=== PATIENT | female | born 1965 | race American Indian/Alaskan Native ===

== ENCOUNTER 2016-05-08 09:13 | Emergency (ER) | payer BC ==
[2016-05-08] MEDS ORDERED: Albuterol/Ipratropium 3.0-0.5 MG/3 ML Neb Soln NEB ONE (09:34)
[2016-05-08] MEDS ORDERED: Aspirin 81 MG Tab.Chew PO ONE (09:35)
--- NOTE | 2016-05-08 09:38 | EDM.PDOC ---
ED HISTORY OF PRESENT ILLNESS - General Chief Complaint: Chest Pain Stated Complaint: CHEST PAINS Time Seen by Provider: 05/08/16 09:35 Source of Information: Reports: Patient History Limitations: Reports: No limitations - History of Present Illness INITIAL COMMENTS - FREE TEXT/NARRATIVE: History of present illness: [] Patient has severe asthma and uses Dulera and a rescue inhaler. Patient stepped outside in the cold and had a sudden onset of chest pain when she took a deep breath. Review of systems: As per history of present illness and below otherwise all systems reviewed and negative. Past medical history: As per history of present illness and as reviewed below otherwise noncontributory. Surgical history: As per history of present illness and as reviewed below otherwise noncontributory. Social history: No reported history of drug or alcohol abuse. Family history: As per history of present illness and as reviewed below otherwise noncontributory. Physical exam: General: Well developed, well nourished in NAD HEENT: Atraumatic, normocephalic, pupils reactive, negative for conjunctival pallor or scleral icterus, mucous membranes moist, throat clear, neck supple, nontender, trachea midline. Lungs: Clear to auscultation, breath sounds equal bilaterally, coarse expiratory wheezing. chest nontender. Heart: S1S2, regular, negative for clicks, rubs, or JVD. Abdomen: Soft, nondistended, nontender. Negative for masses or hepatosplenomegaly. Negative for costovertebral tenderness. Pelvis: Stable nontender. Genitourinary: Deferred. Rectal: Deferred. Extremities: Atraumatic, negative for cords or calf pain. Neurovascular unremarkable. Neuro: Awake, alert, oriented. Cranial nerves II through XII unremarkable. Cerebellum unremarkable. Motor and sensory unremarkable throughout. Exam nonfocal. Diagnostics: [] Labs chest x-ray EKG, patient has an elevated white count with no shift. EKG shows no sign of acute ischemia chest x-ray no infiltrates Therapeutics: [] DuoNeb was given with improvement Impression: [] Chest pain unspecified Plan: [] Followup PMD stopped smoking use inhalers needed for shortness of breath and wheezing. return to ER if symptoms worsen Definitive disposition and diagnosis as appropriate pending reevaluation and review of above. - Related Data Allergies/ADRs: Allergies Allergy/AdvReac Type Severity Reaction Status Date / Time acetaminophen Allergy Abdominal Verified 02/27/16 23:10 [From Tylenol-Codeine #3] Pain ciprofloxacin [From Cipro] Allergy Renal Verified 04/29/15 23:10 Failure ciprofloxacin HCl Allergy Renal Verified 04/29/15 23:10 [From Cipro] Failure codeine phosphate Allergy Abdominal Verified 04/29/15 23:10 [From Tylenol-Codeine #3] Pain cyclobenzaprine Allergy Rash Verified 04/29/15 23:10 Sulfa (Sulfonamide Allergy Hives Verified 04/29/15 23:10 Antibiotics) Home Meds: Home Meds Albuterol [Ventolin HFA] 2 puff INH QID PRN 07/22/13 [History] DULoxetine [Cymbalta] 30 mg PO DAILY 07/22/13 [History] metFORMIN [Glucophage XR] 500 mg PO BIDM 07/22/13 [History] Levothyroxine 125 mcg PO ACBREAKFAST 04/29/15 [History] Fluticasone/Salmeterol [Advair Diskus 500-50] 1 puff INH BID 04/30/15 [History] Montelukast [Singulair] 10 mg PO DAILY 05/07/15 [History] Past Medical History HEENT History: Reports: None Cardiovascular History: Reports: None Respiratory History: Reports: Asthma Genitourinary History: Reports: None RESEARCH GEOLOGIST History: Reports: None Other OB/BYN History: Hysterectomy Musculoskeletal History: Reports: None Neurological History: Reports: None Psychiatric History: Reports: None, Anxiety, Depression Endocrine/Metabolic History: Reports: Diabetes, type II Hematologic History: Reports: None Immunologic History: Reports: None Oncologic (Cancer) History: Reports: None Dermatologic History: Reports: None - Infectious Disease History Infectious Disease History: Reports: Chicken pox - Past Surgical History HEENT Surgical History: Reports: None Cardiovascular Surgical History: Reports: None GI Surgical History: Reports: Cholecystectomy, Other (see below) Other GI Surgeries/Procedures: laparascopy Female Surgical History: Reports: None Endocrine Surgical History: Reports: None Neurological Surgical History: Reports: None Musculoskeletal Surgical History: Reports: Other (see below) Other Musculoskeletal Surgeries/Procedures:: neck fusion Social & Family History - Family History Family Medical History: Noncontributory - Tobacco Use Smoking Status *Q: Current Every Day Smoker Years of Tobacco use: 30 Packs/Tins Daily: 1 Used Tobacco, but Quit: No Second Hand Smoke Exposure: Yes - Alcohol Use Days Per Week of Alcohol Use: 0 Number of Drinks Per Day: 1 Total Drinks Per Week: 0 - Recreational Drug Use Recreational Drug Use: No ED ROS GENERAL - Review of Systems Review Of Systems: See Below (History of present illness) ED EXAM, GENERAL - Physical Exam Exam: See Below (see history of present illness) Course - Vital Signs Last Recorded V/S: Last Vital Signs Temp 36.1 C 05/08/16 09:21 Pulse 90 05/08/16 10:00 Resp 13 05/08/16 10:00 BP 106/45 L 05/08/16 10:00 Pulse Ox 93 L 05/08/16 10:00 - Orders/Labs/Meds Orders: Active Orders 24 hr Category Date Time Status EKG 12 Lead [EKG Documentation Completion] [RC] STAT Care 05/08/16 09:42 Active RT Aerosol Therapy [RC] ASDIRECTED Care 05/08/16 09:34 Active Chest 2V [CR] Stat Exams 05/08/16 10:21 Taken Labs: Laboratory Tests 05/08/16 05/08/16 05/08/16 Range/Units 09:20 09:20 09:20 WBC 18.26 H (4.0-11.0) K/uL RBC 4.76 (4.30-5.90) M/uL Hgb 15.5 (12.0-16.0) g/dL Hct 47.9 H (36.0-46.0) % MCV 100.6 H (80.0-98.0) fL MCH 32.6 H (27.0-32.0) pg MCHC 32.4 (31.0-37.0) g/dL RDW Std Deviation 60.8 (28.0-62.0) fl RDW Coeff of Greg 17 H (11.0-15.0) % Plt Count 329 (150-400) K/uL MPV 8.70 (7.40-12.00) fL Add Manual Diff YES Neutrophils % (Manual) 65 (48.0-80.0) % Band Neutrophils % 4 % Lymphocytes % (Manual) 20 (16.0-40.0) % Monocytes % (Manual) 11 (0.0-15.0) % Nucleated RBC % 0.0 /100WBC Absolute Seg Neuts 11.9 Band Neutrophils # 0.7 Lymphocytes # (Manual) 3.7 Monocytes # (Manual) 2.0 Nucleated RBCs # 0 K/uL Sodium 142 (136-146) mmol/L Potassium 4.1 (3.5-5.1) mmol/L Chloride 103 (98-110) mmol/L Carbon Dioxide 25 (21-31) mmol/L BUN 7 (6.0-23.0) mg/dL Creatinine 0.7 (0.6-1.5) mg/dL Est Cr Clr Drug Dosing 70.81 mL/min Estimated GFR (MDRD) > 60.0 ml/min Glucose 99 (60-110) mg/dL Calcium 10.3 (8.8-10.8) mg/dL Troponin I < 0.10 (0.0-0.29) NG/ML Meds: Medications Discontinued Medications Generic Name Dose Route Start Last Admin Trade Name Freq PRN Reason Stop Dose Admin Albuterol/Ipratropium 3 ml 05/08/16 09:34 05/08/16 09:43 Duoneb 3.0-0.5 Mg/3 Ml NEB 05/08/16 09:35 3 ml ONETIME ONE Administration Aspirin 324 mg 05/08/16 09:35 05/08/16 09:59 Aspirin PO 05/08/16 09:36 324 mg ONETIME ONE Administration Departure - Departure Time of Disposition: 11:12 Disposition: Home, Self-Care 01 Condition: good Clinical Impression: Chest pain of uncertain etiology Forms: ED Department Discharge Additional Instructions: The following information is given to patients seen in the emergency department who are being discharged to home. This information is to outline your options for follow-up care. We provide all patients seen in our emergency department with a follow-up referral. The need for follow-up, as well as the timing and circumstances, are variable depending upon the specifics of your emergency department visit. If you don't have a primary care physician on staff, we will provide you with a referral. We always advise you to contact your personal physician following an emergency department visit to inform them of the circumstance of the visit and for follow-up with them and/or the need for any referrals to a consulting specialist. The emergency department will also refer you to a specialist when appropriate. This referral assures that you have the opportunity for follow-up care with a specialist. All of these measure are taken in an effort to provide you with optimal care, which includes your follow-up. Under all circumstances we always encourage you to contact your private physician who remains a resource for coordinating your care. When calling for follow-up care, please make the office aware that this follow-up is from your recent emergency room visit. If for any reason you are refused follow-up, please contact the [facility] Emergency Department at and asked to speak to the emergency department charge nurse. Stop Smoking, use inhalers as directed shortness of breath Followup PMD return to ER if any symptoms change or - My Orders Last 24 Hours: My Active Orders 05/08/16 09:34 RT Aerosol Therapy [RC] ASDIRECTED 05/08/16 09:42 EKG 12 Lead [EKG Documentation Completion] [RC] STAT 05/08/16 10:21 Chest 2V [CR] Stat - Assessment/Plan Last 24 Hours: My Active Orders 05/08/16 09:34 RT Aerosol Therapy [RC] ASDIRECTED 05/08/16 09:42 EKG 12 Lead [EKG Documentation Completion] [RC] STAT 05/08/16 10:21 Chest 2V [CR] Stat
[2016-05-08 10:16] LABS: CHLORIDE,CL 103 mmol/L (98-110); SODIUM,NA 142 mmol/L (136-146)
[2016-05-08 11:24] VITALS: BP 108/62
--- NOTE | 2016-05-08 16:01 | CR ---
EXAM DATE: 05/08/16 PATIENT'S AGE: 51 Patient: CHELLY HAMILTON Facility: [place], [place] Site . Site : 1965 Study: XRay Chest [id number]/8/2017 10:47:29 AM Ordering Physician: Braden Atkins Final Report: Indication: Chest pain and history asthma. Technique: Two-view chest. Comparison: 04/15/2016. Findings: The heart size and pulmonary venous markings appear normal. The mediastinal silhouette is normal. Costophrenic angles are clear. Lungs are clear. Cervical spine fusion hardware is present. Impression: Negative chest. Dictated by Keyla Cross MD @ May 08 2016 10:55AM (Electronic Signature) Report Signed by Proxy and Original Signed Document filed in the Medical Record. MTDD
== END 2016-05-08 11:22 | disposition home or self-care (01) ==
LOC: MW.ED 09:13
DX: R07.9 Chest pain, unspecified (principal); F41.8 Other specified anxiety disorders; E11.9 Type 2 diabetes mellitus without complications; F17.210 Nicotine dependence, cigarettes, uncomplicated; Z98.890 Other specified postprocedural states; Z98.1 Arthrodesis status; Z79.84 Long term (current) use of oral hypoglycemic drugs; Z79.899 Other long term (current) drug therapy; Z88.1 Allergy status to other antibiotic agents; Z88.2 Allergy status to sulfonamides; Z88.5 Allergy status to narcotic agent; Z88.8 Allergy status to other drugs, medicaments and biological substances; Z88.6 Allergy status to analgesic agent
CPT/HCPCS: 71020; 80048; 84484; 85025; 93005; 94664; 99285; A9270; 99284

== ENCOUNTER 2016-11-12 18:57 | Observation (INO) | payer BC ==
[2016-11-12] MEDS ORDERED: Albuterol/Ipratropium 3.0-0.5 MG/3 ML Neb Soln NEB ONE (19:07)
[2016-11-12] MEDS ORDERED: Albuterol/Ipratropium 3.0-0.5 MG/3 ML Neb Soln ONE (19:09)
[2016-11-12] MEDS ORDERED: methylPREDNISolone Sodium Succinate 125 MG/2 ML SDV IVPUSH ONE (19:27)
[2016-11-12] MEDS ORDERED: cefTRIAXone 1 GM in Premix Bag 1 BAG IV ONE (19:27)
--- NOTE | 2016-11-12 19:27 | EDM.PDOC ---
ED HPI GENERAL MEDICAL PROBLEM - General Chief Complaint: Respiratory Problem Stated Complaint: PT HAS DIFFICULTY BREATHING Time Seen by Provider: 11/12/16 19:01 - History of Present Illness INITIAL COMMENTS - FREE TEXT/NARRATIVE: HISTORY AND PHYSICAL: History of present illness: Patient's 51-year-old white female presents with concern of cough shortness of breath patient has history of asthma and is still a smoker she states she has recurrent pneumonia intermittently. She states is been worse over the last several days with cough and productive and increasing shortness of breath she states this is associated with chest pain when coughing and is typical of prior episodes of pneumonia. There's been no fever chills nausea vomiting or other complaints Review of systems: As per history of present illness and below otherwise all systems reviewed and negative. Past medical history: As per history of present illness and as reviewed below otherwise noncontributory. Surgical history: As per history of present illness and as reviewed below otherwise noncontributory. Social history: No reported history of drug or alcohol abuse. Family history: As per history of present illness and as reviewed below otherwise noncontributory. Physical exam: HEENT: Atraumatic, normocephalic, pupils reactive, negative for conjunctival pallor or scleral icterus, mucous membranes moist, throat clear, neck supple, nontender, trachea midline. Lungs: Coarse bilaterally with rare expiratory wheezing, breath sounds equal bilaterally, chest nontender. Heart: S1S2, regular, negative for clicks, rubs, or JVD. Abdomen: Soft, nondistended, nontender. Negative for masses or hepatosplenomegaly. Negative for costovertebral tenderness. Pelvis: Stable nontender. Genitourinary: Deferred. Rectal: Deferred. Extremities: Atraumatic, negative for cords or calf pain. Neurovascular unremarkable. Neuro: Awake, alert, oriented. Cranial nerves II through XII unremarkable. Cerebellum unremarkable. Motor and sensory unremarkable throughout. Exam nonfocal. Diagnostics: CBC CMP blood culture 2 lactic acid EKG troponin Therapeutics: #1 albuterol ipratropium nebulizer saline at 125 an hour Impression: #1 hypoxemia #2 rule out pneumonia #3 asthmatic exacerbation Definitive disposition and diagnosis as appropriate pending reevaluation and review of above. Chest Pain Score (Numeric/FACES): 4 - Related Data Allergies Allergy/AdvReac Type Severity Reaction Status Date / Time acetaminophen Allergy Abdominal Verified 11/12/16 19:17 [From Tylenol-Codeine #3] Pain ciprofloxacin [From Cipro] Allergy Renal Verified 11/12/16 19:17 Failure ciprofloxacin HCl Allergy Renal Verified 11/12/16 19:17 [From Cipro] Failure codeine phosphate Allergy Abdominal Verified 11/12/16 19:17 [From Tylenol-Codeine #3] Pain cyclobenzaprine Allergy Rash Verified 11/12/16 19:17 Sulfa (Sulfonamide Allergy Hives Verified 11/12/16 19:17 Antibiotics) Home Meds: Home Meds Albuterol [Ventolin HFA] 2 puff INH QID PRN 07/22/13 [History] DULoxetine [Cymbalta] 30 mg PO DAILY 07/22/13 [History] metFORMIN [Glucophage XR] 500 mg PO BIDM 07/22/13 [History] Levothyroxine 125 mcg PO ACBREAKFAST 04/29/15 [History] Fluticasone/Salmeterol [Advair Diskus 500-50] 1 puff INH BID 04/30/15 [History] Montelukast [Singulair] 10 mg PO DAILY 05/07/15 [History] Past Medical History HEENT History: Reports: None Cardiovascular History: Reports: None Respiratory History: Reports: Asthma Genitourinary History: Reports: None STATISTICAL PROGRAMMER History: Reports: None Other OB/BYN History: Hysterectomy Musculoskeletal History: Reports: None Neurological History: Reports: None Psychiatric History: Reports: None, Anxiety, Depression Endocrine/Metabolic History: Reports: Diabetes, Type II Hematologic History: Reports: None Immunologic History: Reports: None Oncologic (Cancer) History: Reports: None Dermatologic History: Reports: None - Infectious Disease History Infectious Disease History: Reports: Chicken Pox - Past Surgical History GI Surgical History: Reports: Cholecystectomy, Other (See Below) Musculoskeletal Surgical History: Reports: Other (See Below) Social & Family History - Family History Family Medical History: Noncontributory - Tobacco Use Smoking Status *Q: Current Every Day Smoker Years of Tobacco use: 30 Packs/Tins Daily: 1 Used Tobacco, but Quit: No Second Hand Smoke Exposure: Yes - Caffeine Use Caffeine Use: Reports: Coffee - Alcohol Use Days Per Week of Alcohol Use: 0 Number of Drinks Per Day: 1 Total Drinks Per Week: 0 - Recreational Drug Use Recreational Drug Use: No ED ROS GENERAL - Review of Systems Review Of Systems: ROS reveals no pertinent complaints other than HPI. ED EXAM, GENERAL - Physical Exam Exam: See Below (Dictation) Course - Vital Signs Last Recorded V/S: Last Vital Signs Temp 36.1 C 11/12/16 20:06 Pulse 92 11/12/16 20:06 Resp 18 11/12/16 20:06 BP 119/69 11/12/16 20:06 Pulse Ox 95 11/12/16 20:06 - Orders/Labs/Meds Orders: Active Orders 24 hr Category Date Time Status EKG 12 Lead [EKG Documentation Completion] [RC] STAT Care 11/12/16 19:07 Active RT Aerosol Therapy [RC] ASDIRECTED Care 11/12/16 19:08 Active Chest 2V [CR] Stat Exams 11/12/16 19:07 Taken CULTURE BLOOD [BC] Stat Lab 11/12/16 19:15 Received CULTURE BLOOD [BC] Stat Lab 11/12/16 19:20 Received CULTURE SPUTUM + SMEAR [RM] Stat Lab 11/12/16 19:10 Received Blood Culture x2 Reflex Set [OM.PC] Stat Oth 11/12/16 19:08 Ordered Labs: Laboratory Tests 11/12/16 11/12/16 11/12/16 Range/Units 19:20 19:20 19:20 WBC 16.49 H (4.0-11.0) K/uL RBC 4.35 (4.30-5.90) M/uL Hgb 13.9 (12.0-16.0) g/dL Hct 42.1 (36.0-46.0) % MCV 96.8 (80.0-98.0) fL MCH 32.0 (27.0-32.0) pg MCHC 33.0 (31.0-37.0) g/dL RDW Std Deviation 53.0 (28.0-62.0) fl RDW Coeff of Greg 15 (11.0-15.0) % Plt Count 253 (150-400) K/uL MPV 8.50 (7.40-12.00) fL Add Manual Diff YES Neutrophils % (Manual) 75 (48.0-80.0) % Band Neutrophils % 3 % Lymphocytes % (Manual) 16 (16.0-40.0) % Monocytes % (Manual) 5 (0.0-15.0) % Eosinophils % (Manual) 1 (0.0-7.0) % Nucleated RBC % 0.0 /100WBC Absolute Seg Neuts 12.4 Band Neutrophils # 0.5 Lymphocytes # (Manual) 2.6 Monocytes # (Manual) 0.8 Eosinophils # (Manual) 0.2 Nucleated RBCs # 0 K/uL Lactate 2.4 H (0.20-2.00) mmol/L Sodium 138 (136-146) mmol/L Potassium 4.5 (3.5-5.1) mmol/L Chloride 104 (98-110) mmol/L Carbon Dioxide 24 (21-31) mmol/L BUN 8 (6.0-23.0) mg/dL Creatinine 0.7 (0.6-1.5) mg/dL Est Cr Clr Drug Dosing 70.81 mL/min Estimated GFR (MDRD) > 60.0 ml/min Glucose 103 (60-110) mg/dL Calcium 10.3 (8.8-10.8) mg/dL Total Bilirubin 0.3 (0.1-1.5) mg/dL AST 28 (5-40) IU/L ALT 28 (8-54) IU/L Alkaline Phosphatase 93 (40-150) Troponin I (0.0-0.29) NG/ML Total Protein 8.1 H (6.0-8.0) g/dL Albumin 3.9 (3.5-5.0) g/dL Globulin 4.2 H (2.0-3.5) g/dL Albumin/Globulin Ratio 0.9 L (1.3-2.8) 11/12/16 Range/Units 19:20 WBC (4.0-11.0) K/uL RBC (4.30-5.90) M/uL Hgb (12.0-16.0) g/dL Hct (36.0-46.0) % MCV (80.0-98.0) fL MCH (27.0-32.0) pg MCHC (31.0-37.0) g/dL RDW Std Deviation (28.0-62.0) fl RDW Coeff of Greg (11.0-15.0) % Plt Count (150-400) K/uL MPV (7.40-12.00) fL Add Manual Diff Neutrophils % (Manual) (48.0-80.0) % Band Neutrophils % % Lymphocytes % (Manual) (16.0-40.0) % Monocytes % (Manual) (0.0-15.0) % Eosinophils % (Manual) (0.0-7.0) % Nucleated RBC % /100WBC Absolute Seg Neuts Band Neutrophils # Lymphocytes # (Manual) Monocytes # (Manual) Eosinophils # (Manual) Nucleated RBCs # K/uL Lactate (0.20-2.00) mmol/L Sodium (136-146) mmol/L Potassium (3.5-5.1) mmol/L Chloride (98-110) mmol/L Carbon Dioxide (21-31) mmol/L BUN (6.0-23.0) mg/dL Creatinine (0.6-1.5) mg/dL Est Cr Clr Drug Dosing mL/min Estimated GFR (MDRD) ml/min Glucose (60-110) mg/dL Calcium (8.8-10.8) mg/dL Total Bilirubin (0.1-1.5) mg/dL AST (5-40) IU/L ALT (8-54) IU/L Alkaline Phosphatase (40-150) Troponin I < 0.10 (0.0-0.29) NG/ML Total Protein (6.0-8.0) g/dL Albumin (3.5-5.0) g/dL Globulin (2.0-3.5) g/dL Albumin/Globulin Ratio (1.3-2.8) Meds: Medications Discontinued Medications Generic Name Dose Route Start Last Admin Trade Name Sarah PRN Reason Stop Dose Admin Albuterol/Ipratropium 3 ml 11/12/16 19:07 11/12/16 19:13 Duoneb 3.0-0.5 Mg/3 Ml NEB 11/12/16 19:08 3 ml ONETIME ONE Administration Albuterol/Ipratropium Confirm 11/12/16 19:09 11/12/16 19:13 Duoneb 3.0-0.5 Mg/3 Ml Administered 11/12/16 19:10 Not Given Dose 3 ml .ROUTE .STK-MED ONE Ceftriaxone Sodium/Dextrose 1 50 mls @ 100 mls/hr 11/12/16 19:27 11/12/16 19: 45 gm/ Premix IV 11/12/16 19:56 100 mls/hr ONETIME ONE Administration Methylprednisolone Sodium Succinate 125 mg 11/12/16 19:27 11/12/16 19:45 Solu-Medrol IVPUSH 11/12/16 19:28 125 mg ONETIME ONE Administration Departure - Departure Time of Disposition: 20:40 Disposition: Refer to Observation Condition: Good Clinical Impression: Hypoxemia, Asthma, Leukocytosis - Discharge Information Referrals: PCP,None [Primary Care Provider] - Forms: ED Department Discharge - My Orders Last 24 Hours: My Active Orders 11/12/16 19:07 EKG 12 Lead [EKG Documentation Completion] [RC] STAT Chest 2V [CR] Stat 11/12/16 19:08 RT Aerosol Therapy [RC] ASDIRECTED Blood Culture x2 Reflex Set [OM.PC] Stat 11/12/16 19:10 CULTURE SPUTUM + SMEAR [RM] Stat 11/12/16 19:15 CULTURE BLOOD [BC] Stat 11/12/16 19:20 CULTURE BLOOD [BC] Stat - Assessment/Plan Last 24 Hours: My Active Orders 11/12/16 19:07 EKG 12 Lead [EKG Documentation Completion] [RC] STAT Chest 2V [CR] Stat 11/12/16 19:08 RT Aerosol Therapy [RC] ASDIRECTED Blood Culture x2 Reflex Set [OM.PC] Stat 11/12/16 19:10 CULTURE SPUTUM + SMEAR [RM] Stat 11/12/16 19:15 CULTURE BLOOD [BC] Stat 11/12/16 19:20 CULTURE BLOOD [BC] Stat
[2016-11-12 19:53] LABS: CHLORIDE,CL 104 mmol/L (98-110); SODIUM,NA 138 mmol/L (136-146)
[2016-11-12] MEDS ORDERED: Azithromycin 500 MG in Sodium Chloride 0.9% 250 ML IV ONE (20:42)
[2016-11-12] MEDS ORDERED: Nicotine 14 MG/24 Hr Patch TRDERM PRN (22:29)
[2016-11-12] MEDS ORDERED: Ondansetron 4 MG/2 ML SDV IV PRN (22:29)
[2016-11-12] MEDS ORDERED: oxyCODONE 5 MG Tab PO PRN (22:29)
[2016-11-12] MEDS ORDERED: Morphine 2 MG/ML Syringe IVPUSH PRN (22:29)
[2016-11-12] MEDS ORDERED: Sodium Chloride 0.9% 1,000 ML IV SCH (22:30)
[2016-11-12] MEDS ORDERED: Ondansetron 8 MG in Sodium Chloride 0.9% 50 ML IV PRN (22:47)
[2016-11-12] MEDS: Albuterol/Ipratropium 3.0-0.5 MG/3 ML Neb Soln NEB SCH (23:20)
[2016-11-12] MEDS: Insulin Aspart 100 Units/ML 3 ML Pen SUBCUT SCH (23:21)
[2016-11-13] MEDS ORDERED: Acetaminophen 325 MG Tab PO PRN (01:06)
[2016-11-13] MEDS: Albuterol/Ipratropium 3.0-0.5 MG/3 ML Neb Soln NEB SCH ×6 (01:40→22:13)
[2016-11-13] MEDS: methylPREDNISolone Sodium Succinate 125 MG/2 ML SDV IVPUSH SCH ×3 (03:58→20:54)
[2016-11-13] MEDS: Levothyroxine 125 MCG Tab PO SCH (06:33)
[2016-11-13] MEDS: Insulin Aspart 100 Units/ML 3 ML Pen SUBCUT SCH ×4 (06:33→21:00)
[2016-11-13 07:56] LABS: CHLORIDE,CL 102 mmol/L (98-110); SODIUM,NA 137 mmol/L (136-146)
[2016-11-13] MEDS ORDERED: Sodium Chloride 0.9% 1,000 ML IV ONE ×2 (07:58→14:17)
--- NOTE | 2016-11-13 08:03 | PCM.HP ---
H&P History of Present Illness - General Date of Service: 11/13/16 Admit Problem/Dx: Admission Diagnosis/Problem Admission Diagnosis/Problem Hypoxemia Source of Information: Patient History Limitations: Reports: No Limitations - History of Present Illness Initial Comments - Free Text/Narative: This 51 year old female with pmh of asthma presented to the ED with concerns of worsening dyspnea and cough. She reports this initially started last Friday/ Friday. She was seen at [facility] and was told this is likely viral. She continued with her hold inhalers and Duonebs, but felt there was no improvement and came to the ED. She confirms productive cough, with white to yellow phlegm. No fevers at home. Some sinus congestion, no ear pain. She has history of recurrent pneumonia and asthma exacerbations. She was noted to be 85% on RA in the ED on admission. In the ED WBC 16,490, Lactate 2.4, BMP WNL. CXR negative. She was placed on 2-3 l NC sating low 90s. She was treated with Solumedrol, Azithromycin and Rocpehin and Duonebs. She will be admitted for asthma exacerbation, r/o pneumonia. Chest Pain Score (Numeric/FACES): 4 - Related Data Allergies/Adverse Reactions: Allergies Allergy/AdvReac Type Severity Reaction Status Date / Time acetaminophen Allergy Abdominal Verified 11/12/16 19:17 [From Tylenol-Codeine #3] Pain ciprofloxacin [From Cipro] Allergy Renal Verified 11/12/16 19:17 Failure ciprofloxacin HCl Allergy Renal Verified 11/12/16 19:17 [From Cipro] Failure codeine phosphate Allergy Abdominal Verified 11/12/16 19:17 [From Tylenol-Codeine #3] Pain cyclobenzaprine Allergy Rash Verified 11/12/16 19:17 Sulfa (Sulfonamide Allergy Hives Verified 11/12/16 19:17 Antibiotics) Home Medications: Home Meds Albuterol [Ventolin HFA] 2 puff INH QID PRN 07/22/13 [History] DULoxetine [Cymbalta] 60 mg PO DAILY 07/22/13 [History] metFORMIN [Glucophage XR] 1,000 mg PO BIDM 07/22/13 [History] Levothyroxine 125 mcg PO ACBREAKFAST 04/29/15 [History] Montelukast [Singulair] 10 mg PO DAILY 05/07/15 [History] Mometasone/Formoterol [Dulera 100-5 MCG] 2 puff INH BID 11/12/16 [History] Tiotropium [Spiriva HandiHaler] 18 mcg INH BID 11/12/16 [History] Past Medical History HEENT History: Reports: Impaired Vision Cardiovascular History: Reports: None. Denies: Afib, Blood Clots/VTE/DVT, Hypertension, PA Respiratory History: Reports: Asthma, Bronchitis, Recurrent, Pneumonia, Recurrent Gastrointestinal History: Reports: Cholelithiasis Genitourinary History: Reports: None AD SETTER History: Reports: Other (See Below) Other OB/BYN History: Cyst Musculoskeletal History: Reports: None Neurological History: Reports: None Psychiatric History: Reports: Depression Endocrine/Metabolic History: Reports: Diabetes, Type II, Obesity/BMI 30+ Hematologic History: Reports: None Immunologic History: Reports: None Oncologic (Cancer) History: Reports: None Dermatologic History: Reports: None - Infectious Disease History Infectious Disease History: Reports: Chicken Pox - Past Surgical History HEENT Surgical History: Reports: None Respiratory Surgical History: Reports: None GI Surgical History: Reports: Cholecystectomy, Colostomy Female Surgical History: Reports: Hysterectomy Endocrine Surgical History: Reports: None Musculoskeletal Surgical History: Reports: Other (See Below) Other Musculoskeletal Surgeries/Procedures:: Neck bone graft Social & Family History - Family History Family Medical History: Noncontributory - Tobacco Use Smoking Status *Q: Current Every Day Smoker Years of Tobacco use: 30 Packs/Tins Daily: 1 Used Tobacco, but Quit: No Second Hand Smoke Exposure: No - Caffeine Use Caffeine Use: Reports: Coffee, Soda, Tea - Alcohol Use Days Per Week of Alcohol Use: 0 Number of Drinks Per Day: 1 Total Drinks Per Week: 0 - Recreational Drug Use Recreational Drug Use: No H&P Review of Systems - Review of Systems: Review Of Systems: See Below General: Reports: No Symptoms. Denies: Fever, Chills, Malaise HEENT: Reports: Post Nasal Drip, Sinus Congestion. Denies: Ear Pain, Headaches , Sore Throat (scratchy), Vertigo, Visual Changes Pulmonary: Reports: Shortness of Breath, Wheezing, Pleuritic Chest Pain, Cough, Sputum Cardiovascular: Reports: No Symptoms. Denies: Chest Pain, Palpitations, Edema Gastrointestinal: Reports: No Symptoms. Denies: Abdominal Pain, Diarrhea, Nausea, Vomiting Genitourinary: Reports: No Symptoms. Denies: Dysuria, Frequency, Burning, Pain Musculoskeletal: Reports: No Symptoms. Denies: Neck Pain Skin: Reports: No Symptoms Psychiatric: Reports: No Symptoms Neurological: Reports: No Symptoms Hematologic/Lymphatic: Reports: No Symptoms Immunologic: Reports: No Symptoms Exam - Exam Exam: See Below - Vital Signs Vital Signs: Last Vital Signs Temp 97.9 F 11/13/16 05:00 Pulse 86 11/13/16 05:00 Resp 16 11/13/16 05:00 BP 110/59 L 11/13/16 05:00 Pulse Ox 94 L 11/13/16 05:00 Weight: 82.3 kg - Exam Quality Assessment: Supplemental Oxygen, DVT Prophylaxis General: Alert, Oriented, Cooperative HEENT: Conjunctiva Clear, Hearing Intact, Mucosa Moist & [place], Nares Patent, Normal Nasal Septum, Posterior Pharynx Clear, TMs Clear Lungs: Decreased Breath Sounds, Rhonchi (bases bilaterally). No: Wheezing Cardiovascular: Regular Rate, Regular Rhythm, Normal S1, Normal S2. No: Systolic Murmur Back Exam: Normal Inspection, Full Range of Motion, NT Extremities: Normal Inspection Neuro Extensive - Mental Status: Alert, Oriented x3, Normal Mood/Affect, Normal Cognition Psychiatric: Alert, Normal Affect, Normal Mood - Patient Data Lab Results Last 24 hrs: Laboratory Results - last 24 hr 11/12/16 11/13/16 11/13/16 Range/Units 21:58 01:32 06:18 Lactate 2.2 H (0.20-2.00) mmol/L POC Glucose 192 H 277 H (60-110) mg/dL 11/13/16 Range/Units 07:17 Lactate 2.7 H (0.20-2.00) mmol/L POC Glucose (60-110) mg/dL Result Diagrams: 11/13/16 07:17 11/13/16 07:17 *Q Meaningful Use (ADM) - VTE *Q VTE Criteria *Q: - Stroke *Q Stroke Criteria *Q: - AMI *Q AMI Criteria *Q: - Problem List (1) Asthma SNOMED Code(s): 107088766 ICD Code: J45.909 - UNSPECIFIED ASTHMA, UNCOMPLICATED Status: Acute Current Visit: Yes Qualifiers: Asthma severity: mild persistent Asthma complication type: with acute exacerbation Qualified Code(s): J45.31 - Mild persistent asthma with (acute) exacerbation (2) Hypoxemia SNOMED Code(s): 797709105 ICD Code: R09.02 - HYPOXEMIA Status: Acute Current Visit: Yes (3) Leukocytosis SNOMED Code(s): 537106939, 089111067 ICD Code: D72.829 - ELEVATED WHITE BLOOD CELL COUNT, UNSPECIFIED Status: Acute Current Visit: Yes Problem List Initiated/Reviewed/Updated: Yes Orders Last 24hrs: Active Orders 24 hr Category Date Time Status Blood Glucose Check, Bedside [RC] WITHMEALSANDBED Care 11/12/16 22:29 Active Oxygen Therapy [RC] ASDIRECTED Care 11/12/16 22:29 Active Telemetry Monitoring [Cardiac Monitoring] [RC] Q8H Care 11/12/16 22:27 Active [employer] Diet [DIET] Diet 11/13/16 Breakfast Active CBC WITH AUTO DIFF [HEME] Routine Lab 11/13/16 07:17 Received COMPREHENSIVE METABOLIC PN,CMP [CHEM] Routine Lab 11/13/16 07:17 Received GLYCOSYLATED HEMOGLOBIN,HGBA1C [CHEM] Routine Lab 11/13/16 07:17 Received MAGNESIUM [CHEM] Routine Lab 11/13/16 07:17 Received PHOSPHORUS [CHEM] Routine Lab 11/13/16 07:17 Received Acetaminophen [Tylenol] Med 11/13/16 01:06 Active 650 mg PO Q4H PRN Albuterol/Ipratropium [DuoNeb 3.0-0.5 MG/3 ML] Med 11/12/16 22:00 Active 3 ml NEB Q4HRRT Azithromycin [Zithromax] 500 mg Med 11/13/16 20:00 Active Sodium Chloride 0.9% [Normal Saline] 250 ml IV Q24H DULoxetine [Cymbalta] Med 11/13/16 09:00 Active 60 mg PO DAILY Insulin Aspart [NovoLOG] Med 11/12/16 22:30 Active See Protocol SUBCUT ACBED Levothyroxine Med 11/13/16 07:30 Active 125 mcg PO ACBREAKFAST Montelukast [Singulair] Med 11/13/16 09:00 Active 10 mg PO DAILY Morphine Med 11/12/16 22:29 Active 2 mg IVPUSH Q2H PRN Nicotine [Habitrol] Med 11/12/16 22:29 Active 14 mg TRDERM DAILY PRN Ondansetron [Zofran] Med 11/12/16 22:29 Active 8 mg IV Q6H PRN Patient's Own Medication [Ptom] Med 11/13/16 09:00 Active 1 each INH BID Sodium Chloride 0.9% [Normal Saline] 1,000 ml Med 11/13/16 07:58 Active IV .Bolus Sodium Chloride 0.9% [Normal Saline] 1,000 ml Med 11/12/16 22:30 Active IV ASDIRECTED Tiotropium [Spiriva HandiHaler] Med 11/13/16 09:00 Active 18 mcg INH BID cefTRIAXone [Rocephin in Dextrose,Iso-Osm 1 GM/50 ML] 1 Med 11/13/16 19:30 Active gm Premix Bag 1 bag IV Q24H metFORMIN [Glucophage XR] Med 11/13/16 08:00 Active 1,000 mg PO BIDM methylPREDNISolone Sod Succ [Solu-MEDROL] Med 11/13/16 04:00 Active 125 mg IVPUSH Q8H oxyCODONE Med 11/12/16 22:29 Active 5 mg PO Q4H PRN Pulse Oximetry Continuous Monitoring [OM.PC] Routine Oth 11/12/16 22:29 Ordered Medication Orders Acetaminophen (Tylenol) 650 mg PO Q4H PRN PRN Reason: Pain (mild 1-3) Albuterol/Ipratropium (Duoneb 3.0-0.5 Mg/3 Ml) 3 ml NEB Q4HRRT [facility] Last Admin: 11/13/16 06:25 Dose: 3 ml Admin: 11/13/16 01:40 Dose: 3 ml Admin: 11/12/16 23:20 Dose: Not Given Duloxetine HCl (Cymbalta) 60 mg PO DAILY [facility] Azithromycin 500 mg/ Sodium (Chloride) 250 mls @ 250 mls/hr IV Q24H MELONY Sodium Chloride (Normal Saline) 1,000 mls @ 50 mls/hr IV ASDIRECTED MELONY Last Admin: 11/12/16 23:22 Dose: 50 mls/hr Sodium Chloride (Normal Saline) 1,000 mls @ 999 mls/hr IV .Bolus ONE Stop: 11/13/16 08:58 Ceftriaxone Sodium/Dextrose 1 (gm/ Premix) 50 mls @ 100 mls/hr IV Q24H [facility] Insulin Aspart (Novolog) 0 unit SUBCUT ACBED [facility] PRN Reason: Protocol Last Admin: 11/13/16 06:33 Dose: 3 unit Admin: 11/12/16 23:21 Dose: 1 unit Levothyroxine Sodium (Levothyroxine) 125 mcg PO ACBREAKFAST [facility] Last Admin: 11/13/16 06:33 Dose: 125 mcg Metformin HCl (Glucophage Xr) 1,000 mg PO BIDM [facility] Methylprednisolone Sodium Succinate (Solu-Medrol) 125 mg IVPUSH Q8H [facility] Last Admin: 11/13/16 03:58 Dose: 125 mg Montelukast Sodium (Singulair) 10 mg PO DAILY [facility] Morphine Sulfate (Morphine) 2 mg IVPUSH Q2H PRN PRN Reason: Pain (severe 7-10) Nicotine (Habitrol) 14 mg TRDERM DAILY PRN PRN Reason: Smoking Ondansetron HCl (Zofran) 8 mg IV Q6H PRN PRN Reason: Nausea/Vomiting Oxycodone HCl (Oxycodone) 5 mg PO Q4H PRN PRN Reason: Pain (moderate 4-6) Mometasone/ (Formoterol 2 Puff) 1 each INH BID [facility] Tiotropium [place] (Spiriva Handihaler) 18 mcg INH BID [facility] Assessment/Plan Comment:: This 51 year old female admitted with acute asthma exacerbaton, possible pneumonia, sinusitis 1. Asthma exacerbation: Continues to need 2 L NC, sating 82 on RA. Will continue Solumedrol, home inhalers, DUlera and Spiriva, Duonebs and oxygen. Educated on the high importance of smoking cessation with her fragile lungs. She verbalized understanding and reported she is going to quit, this is a very severe exacerbation compared to others. 2. Penumonia/sinusitis: No CXR evidence, but has congested cough, Rhonchi and leukocytosis. Patient requested Levaquin, she reports this typically helps the best. Will start Levaquin and monitor. 3. DM type 2: Metformin and add Novolog SSI due to steroid administration and likely some hyperglycemia. 4. Elevated lactic acid: bolus this am, will monitor. Patient is non toxic in appearance, Will trend until normalized. VTE prophylaxis: Lovenox. Dispo: 2-3 days, patient reports she is leaving not matter what tomorrow, she has vacation planned and she is not canceling it. I high encouraged her to take it slow, at this time point she is needing oxygen to maintain saturations, and if she were to go home too soon she may be back with complications.
[2016-11-13] MEDS: DULoxetine 30 MG Cap PO SCH (08:41)
[2016-11-13] MEDS: Montelukast 10 MG Tab PO SCH (08:41)
[2016-11-13] MEDS: metFORMIN 500 MG Tab.ER PO SCH ×2 (08:41→16:57)
[2016-11-13] MEDS: Tiotropium Inhaler 18 MCG Inhalation Powder Cap Kit of 5 INH SCH ×2 (09:48→23:46)
[2016-11-13] MEDS: Levofloxacin/Dextrose 5%-Water 750 MG in Premix Bag 1 BAG IV SCH (10:06)
--- NOTE | 2016-11-13 10:09 | CR ---
EXAM DATE: 11/12/16 PATIENT'S AGE: 51 Patient: CHELLY HAMILTON Facility: [place], [place] Site . Site : [id number] Study: XRay Chest [id number]/12/2017 7:43:17 PM Ordering Physician: Jay Braswell Final Report: INDICATION: Cough, low oxygen. TECHNIQUE: Chest radiograph 2 views COMPARISON: 05/08/2016. FINDINGS: Cardiovascular and mediastinum: The heart silhouette is normal in size and morphology. The mediastinum is normal in appearance. Lungs and pleural spaces: Both lungs are unremarkable in appearance. No sign of pleural effusion seen. No pneumothorax is identified. Bones and soft tissues: No significant findings. Lower cervical spine fusion hardware noted. IMPRESSION: 1. No acute cardiopulmonary disease is seen. No acute interval change from 05/08. Dictated by Quirino Perkins MD @ 11/12/2016 11:00:10 PM Dictated by: Quirino Perkins MD @ 11/12/2016 23:00:17 (Electronic Signature) Report Signed by Proxy. [facility]
[2016-11-13] MEDS ORDERED: Magnesium Sulfate/Water 2 GM in Premix Bag 1 BAG IV ONE (10:41)
[2016-11-13] MEDS: Enoxaparin 40 MG/0.4 ML Syringe SUBCUT SCH (11:05)
[2016-11-13] MEDS: FORMOTEROL INH SCH ×2 (11:10→23:46)
[2016-11-13] MEDS: MOMETASONE INH SCH ×2 (11:10→23:46)
[2016-11-13] MEDS: Sodium Chloride 0.9% 1,000 ML IV SCH ×2 (11:30→18:20)
[2016-11-13] MEDS ORDERED: Sodium Chloride 0.9% 500 ML IV ONE (18:15)
[2016-11-13] MEDS ORDERED: cefTRIAXone 1 GM in Premix Bag 1 BAG IV SCH (19:30)
[2016-11-13] MEDS ORDERED: Azithromycin 500 MG in Sodium Chloride 0.9% 250 ML IV SCH (20:00)
[2016-11-14] MEDS: Albuterol/Ipratropium 3.0-0.5 MG/3 ML Neb Soln NEB SCH ×3 (02:34→09:22)
[2016-11-14] MEDS: Sodium Chloride 0.9% 1,000 ML IV SCH (02:36)
[2016-11-14] MEDS: methylPREDNISolone Sodium Succinate 125 MG/2 ML SDV IVPUSH SCH (03:52)
[2016-11-14 05:46] LABS: CHLORIDE,CL 109 mmol/L (98-110); SODIUM,NA 142 mmol/L (136-146)
[2016-11-14] MEDS: Insulin Aspart 100 Units/ML 3 ML Pen SUBCUT SCH (06:42)
[2016-11-14] MEDS: Levothyroxine 125 MCG Tab PO SCH (06:43)
[2016-11-14] MEDS: metFORMIN 500 MG Tab.ER PO SCH (08:02)
[2016-11-14] MEDS: Montelukast 10 MG Tab PO SCH (08:02)
[2016-11-14] MEDS: DULoxetine 30 MG Cap PO SCH (08:02)
[2016-11-14] MEDS: FORMOTEROL INH SCH (08:05)
[2016-11-14] MEDS: Tiotropium Inhaler 18 MCG Inhalation Powder Cap Kit of 5 INH SCH (08:05)
[2016-11-14] MEDS: MOMETASONE INH SCH (08:05)
[2016-11-14] MEDS: Levofloxacin/Dextrose 5%-Water 750 MG in Premix Bag 1 BAG IV SCH (08:16)
[2016-11-14 08:56] VITALS: BP 103/56
--- NOTE | 2016-11-14 08:58 | PCM.DCSUM1 ---
Discharge Summary - Hospital Course Brief History: This 51 year old female with pmh of asthma presented to the ED with concerns of worsening dyspnea and cough. She reports this initially started last Friday/Friday. She was seen at [facility] and was told this is likely viral. She continued with her hold inhalers and Duonebs, but felt there was no improvement and came to the ED. She confirms productive cough, with white to yellow phlegm. No fevers at home. Some sinus congestion, no ear pain. She has history of recurrent pneumonia and asthma exacerbations. She was noted to be 85% on RA in the ED on admission. In the ED WBC 16,490, Lactate 2.4 , BMP WNL. CXR negative. She was placed on 2-3 l NC sating low 90s. She was treated with Solumedrol, Azithromycin and Rocpehin and Duonebs. She will be admitted for asthma exacerbation, r/o pneumonia. - Discharge Data Discharge Date: 11/14/16 Discharge Disposition: Home, Self-Care 01 Condition: Good - Discharge Diagnosis/Problem(s) (1) Asthma SNOMED Code(s): 306410278 ICD Code: J45.909 - UNSPECIFIED ASTHMA, UNCOMPLICATED Status: Acute Current Visit: Yes Qualifiers: Asthma severity: mild persistent Asthma complication type: with acute exacerbation Qualified Code(s): J45.31 - Mild persistent asthma with (acute) exacerbation (2) Hypoxemia SNOMED Code(s): 432907919 ICD Code: R09.02 - HYPOXEMIA Status: Acute Current Visit: Yes (3) Leukocytosis SNOMED Code(s): 038181910, 789356276 ICD Code: D72.829 - ELEVATED WHITE BLOOD CELL COUNT, UNSPECIFIED Status: Acute Current Visit: Yes - Patient Instructions Diet: Diabetic Diet Activity: No Strenuous Activities Driving: May Drive Today Showering/Bathing: May Shower Notify Provider of: Fever, Increased Pain, Swelling and Redness, Drainage, Nausea and/or Vomiting - Discharge Plan Prescriptions/Med Rec: Levofloxacin [Levaquin] 750 mg PO DAILY #5 tablet Nicotine [Habitrol] 14 mg TRDERM DAILY #1 box Prednisone [IJD: Prednisone] 10 - 40 mg PO DAILY #30 tab Home Medications: Home Meds Albuterol [Ventolin HFA] 2 puff INH QID PRN 07/22/13 [History] DULoxetine [Cymbalta] 60 mg PO DAILY 07/22/13 [History] metFORMIN [Glucophage XR] 1,000 mg PO BIDM 07/22/13 [History] Levothyroxine 125 mcg PO ACBREAKFAST 04/29/15 [History] Montelukast [Singulair] 10 mg PO DAILY 05/07/15 [History] Mometasone/Formoterol [Dulera 100-5 MCG] 2 puff INH BID 11/12/16 [History] Tiotropium [Spiriva HandiHaler] 18 mcg INH BID 11/12/16 [History] Levofloxacin [Levaquin] 750 mg PO DAILY #5 tablet 11/14/16 [Rx] Nicotine [Habitrol] 14 mg TRDERM DAILY #1 box 11/14/16 [Rx] Prednisone [IJD: Prednisone] 10 - 40 mg PO DAILY #30 tab 11/14/16 [Rx] Patient Handouts: Hypoxemia, Leukocytosis, Asthma, Adult, [id number], Levofloxacin tablets, Nicotine skin patches, Prednisone tablets Referrals: Madyson Kingsley PA-C [Ordering Only Provider] - 12/06/16 1:00 pm - Discharge Summary/Plan Comment DC Time >30 min.: No Discharge Summary/Plan Comment: Discharge Diagnoses Asthma Exacerbation Pneumonia Tobacco abuse DM type 2 Katelyn was admitted and treated with Duonebs, Solumedrol, and Levaquin. Today she was weaned off oxygen. She is feeling better today and is wanting to be discharged. She has a vacation planned and she reports she will leave no matter what. Lactic acid has been elevated, but patient appears non-toxic, no infectious process noted. CXr was negative and no fevers noted. She was educated about this and continues to want to leave. She was encouraged to stay indoors to be away from the smoke. She will be sent home with prednisone taper and Levaquin. She was encouraged to keep her inhalers and use Duonebs as needed. I encouraged her to return to ED or clinic if concerns should arise or breathing is to worsen. She is to follow up with PCP when she returns from her vacation. - General Info Date of Service: 11/14/16 Admission Dx/Problem (Free Text: Admission Diagnosis/Problem Admission Diagnosis/Problem Hypoxemia Functional Status: Reports: Pain Controlled, Tolerating Diet, Ambulating, Urinating - Review of Systems General: Reports: No Symptoms. Denies: Fever, Weakness HEENT: Reports: No Symptoms Pulmonary: Reports: Shortness of Breath (intermittently). Denies: Cough, Sputum Cardiovascular: Reports: No Symptoms. Denies: Chest Pain Gastrointestinal: Reports: No Symptoms. Denies: Abdominal Pain, Nausea, Vomiting Genitourinary: Reports: No Symptoms. Denies: Dysuria, Frequency Musculoskeletal: Reports: No Symptoms Skin: Reports: No Symptoms Neurological: Reports: No Symptoms Psychiatric: Reports: No Symptoms - Patient Data Vitals - Most Recent: Last Vital Signs Temp 97.1 F 11/14/16 08:00 Pulse 83 11/14/16 08:00 Resp 20 11/14/16 08:00 BP 103/56 L 11/14/16 08:00 Pulse Ox 93 L 11/14/16 08:00 Weight - Most Recent: 82.3 kg I&O - Last 24 hours: Intake & Output 11/13/16 11/14/16 11/14/16 22:59 06:59 14:59 Intake Total 2014 1300 Output Total 1300 1650 Balance 714 -350 Lab Results - Last 24 hrs: Laboratory Results - last 24 hr 11/13/16 11/13/16 11/13/16 Range/Units 11:04 13:18 15:47 WBC (4.0-11.0) K/uL RBC (4.30-5.90) M/uL Hgb (12.0-16.0) g/dL Hct (36.0-46.0) % MCV (80.0-98.0) fL MCH (27.0-32.0) pg MCHC (31.0-37.0) g/dL RDW Std Deviation (28.0-62.0) fl RDW Coeff of Greg (11.0-15.0) % Plt Count (150-400) K/uL MPV (7.40-12.00) fL Add Manual Diff Neutrophils % (Manual) (48.0-80.0) % Band Neutrophils % % Lymphocytes % (Manual) (16.0-40.0) % Monocytes % (Manual) (0.0-15.0) % Nucleated RBC % /100WBC Absolute Seg Neuts Band Neutrophils # Lymphocytes # (Manual) Monocytes # (Manual) Nucleated RBCs # K/uL Lactate 5.1 H (0.20-2.00) mmol/L Sodium (136-146) mmol/L Potassium (3.5-5.1) mmol/L Chloride (98-110) mmol/L Carbon Dioxide (21-31) mmol/L BUN (6.0-23.0) mg/dL Creatinine (0.6-1.5) mg/dL Est Cr Clr Drug Dosing mL/min Estimated GFR (MDRD) ml/min Glucose (60-110) mg/dL POC Glucose 269 H 170 H (60-110) mg/dL Calcium (8.8-10.8) mg/dL 11/13/16 11/13/16 11/13/16 Range/Units 17:04 21:00 23:20 WBC (4.0-11.0) K/uL RBC (4.30-5.90) M/uL Hgb (12.0-16.0) g/dL Hct (36.0-46.0) % MCV (80.0-98.0) fL MCH (27.0-32.0) pg MCHC (31.0-37.0) g/dL RDW Std Deviation (28.0-62.0) fl RDW Coeff of Greg (11.0-15.0) % Plt Count (150-400) K/uL MPV (7.40-12.00) fL Add Manual Diff Neutrophils % (Manual) (48.0-80.0) % Band Neutrophils % % Lymphocytes % (Manual) (16.0-40.0) % Monocytes % (Manual) (0.0-15.0) % Nucleated RBC % /100WBC Absolute Seg Neuts Band Neutrophils # Lymphocytes # (Manual) Monocytes # (Manual) Nucleated RBCs # K/uL Lactate 4.9 H 4.6 H (0.20-2.00) mmol/L Sodium (136-146) mmol/L Potassium (3.5-5.1) mmol/L Chloride (98-110) mmol/L Carbon Dioxide (21-31) mmol/L BUN (6.0-23.0) mg/dL Creatinine (0.6-1.5) mg/dL Est Cr Clr Drug Dosing mL/min Estimated GFR (MDRD) ml/min Glucose (60-110) mg/dL POC Glucose 171 H (60-110) mg/dL Calcium (8.8-10.8) mg/dL 11/14/16 11/14/16 11/14/16 Range/Units 05:15 05:15 05:15 WBC 28.13 H (4.0-11.0) K/uL RBC 3.82 L (4.30-5.90) M/uL Hgb 12.0 (12.0-16.0) g/dL Hct 38.2 (36.0-46.0) % MCV 100.0 H (80.0-98.0) fL MCH 31.4 (27.0-32.0) pg MCHC 31.4 (31.0-37.0) g/dL RDW Std Deviation 55.9 (28.0-62.0) fl RDW Coeff of Greg 15 (11.0-15.0) % Plt Count 265 (150-400) K/uL MPV 8.70 (7.40-12.00) fL Add Manual Diff YES Neutrophils % (Manual) 87 H (48.0-80.0) % Band Neutrophils % 7 % Lymphocytes % (Manual) 1 L (16.0-40.0) % Monocytes % (Manual) 5 (0.0-15.0) % Nucleated RBC % 0.0 /100WBC Absolute Seg Neuts 24.5 Band Neutrophils # 2.0 Lymphocytes # (Manual) 0.3 Monocytes # (Manual) 1.4 Nucleated RBCs # 0 K/uL Lactate 4.4 H (0.20-2.00) mmol/L Sodium 142 (136-146) mmol/L Potassium 4.2 (3.5-5.1) mmol/L Chloride 109 (98-110) mmol/L Carbon Dioxide 24 (21-31) mmol/L BUN 8 (6.0-23.0) mg/dL Creatinine 0.8 (0.6-1.5) mg/dL Est Cr Clr Drug Dosing 63.48 mL/min Estimated GFR (MDRD) > 60.0 ml/min Glucose 303 H (60-110) mg/dL POC Glucose (60-110) mg/dL Calcium 8.8 (8.8-10.8) mg/dL 11/14/16 Range/Units 06:40 WBC (4.0-11.0) K/uL RBC (4.30-5.90) M/uL Hgb (12.0-16.0) g/dL Hct (36.0-46.0) % MCV (80.0-98.0) fL MCH (27.0-32.0) pg MCHC (31.0-37.0) g/dL RDW Std Deviation (28.0-62.0) fl RDW Coeff of Greg (11.0-15.0) % Plt Count (150-400) K/uL MPV (7.40-12.00) fL Add Manual Diff Neutrophils % (Manual) (48.0-80.0) % Band Neutrophils % % Lymphocytes % (Manual) (16.0-40.0) % Monocytes % (Manual) (0.0-15.0) % Nucleated RBC % /100WBC Absolute Seg Neuts Band Neutrophils # Lymphocytes # (Manual) Monocytes # (Manual) Nucleated RBCs # K/uL Lactate (0.20-2.00) mmol/L Sodium (136-146) mmol/L Potassium (3.5-5.1) mmol/L Chloride (98-110) mmol/L Carbon Dioxide (21-31) mmol/L BUN (6.0-23.0) mg/dL Creatinine (0.6-1.5) mg/dL Est Cr Clr Drug Dosing mL/min Estimated GFR (MDRD) ml/min Glucose (60-110) mg/dL POC Glucose 224 H (60-110) mg/dL Calcium (8.8-10.8) mg/dL Med Orders - Current: Current Medications Acetaminophen (Tylenol) 650 mg PO Q4H PRN PRN Reason: Pain (mild 1-3) Albuterol/Ipratropium (Duoneb 3.0-0.5 Mg/3 Ml) 3 ml NEB Q4HRRT [facility] Last Admin: 11/14/16 05:50 Dose: 3 ml Duloxetine HCl (Cymbalta) 60 mg PO DAILY [facility] Last Admin: 11/14/16 08:02 Dose: 60 mg Enoxaparin Sodium (Lovenox) 40 mg SUBCUT Q24H [facility] Last Admin: 11/13/16 11:05 Dose: 40 mg Levofloxacin/Dextrose 750 mg/ (Premix) 150 mls @ 100 mls/hr IV Q24H [facility] Last Admin: 11/14/16 08:16 Dose: 100 mls/hr Sodium Chloride (Normal Saline) 1,000 mls @ 125 mls/hr IV ASDIRECTED [facility] Last Admin: 11/14/16 02:36 Dose: 100 mls/hr Insulin Aspart (Novolog) 0 unit SUBCUT ACBED [facility] PRN Reason: Protocol Last Admin: 11/14/16 06:42 Dose: 2 unit Levothyroxine Sodium (Levothyroxine) 125 mcg PO ACBREAKFAST [facility] Last Admin: 11/14/16 06:43 Dose: 125 mcg Metformin HCl (Glucophage Xr) 1,000 mg PO BIDM [facility] Last Admin: 11/14/16 08:02 Dose: 1,000 mg Methylprednisolone Sodium Succinate (Solu-Medrol) 125 mg IVPUSH Q8H [facility] Last Admin: 11/14/16 03:52 Dose: 125 mg Montelukast Sodium (Singulair) 10 mg PO DAILY [facility] Last Admin: 11/14/16 08:02 Dose: 10 mg Morphine Sulfate (Morphine) 2 mg IVPUSH Q2H PRN PRN Reason: Pain (severe 7-10) Nicotine (Habitrol) 14 mg TRDERM DAILY PRN PRN Reason: Smoking Ondansetron HCl (Zofran) 8 mg IV Q6H PRN PRN Reason: Nausea/Vomiting Last Admin: 11/13/16 21:10 Dose: 8 mg Oxycodone HCl (Oxycodone) 5 mg PO Q4H PRN PRN Reason: Pain (moderate 4-6) Mometasone/ (Formoterol 2 Puff) 1 each INH BID [facility] Last Admin: 11/14/16 08:05 Dose: Not Given Tiotropium Malone (Spiriva Handihaler) 18 mcg INH BID [facility] Last Admin: 11/14/16 08:05 Dose: Not Given Discontinued Medications Albuterol/Ipratropium (Duoneb 3.0-0.5 Mg/3 Ml) 3 ml NEB ONETIME ONE Stop: 11/12/16 19:08 Last Admin: 11/12/16 19:13 Dose: 3 ml Albuterol/Ipratropium (Duoneb 3.0-0.5 Mg/3 Ml) Confirm Administered Dose 3 ml .ROUTE .STK-MED ONE Stop: 11/12/16 19:10 Last Admin: 11/12/16 19:13 Dose: Not Given Ceftriaxone Sodium/Dextrose 1 (gm/ Premix) 50 mls @ 100 mls/hr IV ONETIME ONE Stop: 11/12/16 19:56 Last Admin: 11/12/16 19:45 Dose: 100 mls/hr Azithromycin 500 mg/ Sodium (Chloride) 250 mls @ 250 mls/hr IV ONETIME ONE Stop: 11/12/16 21:41 Last Admin: 11/12/16 20:55 Dose: 250 mls/hr Azithromycin 500 mg/ Sodium (Chloride) 250 mls @ 250 mls/hr IV Q24H [facility] Sodium Chloride (Normal Saline) 1,000 mls @ 50 mls/hr IV ASDIRECTED [facility] Last Admin: 11/12/16 23:22 Dose: 50 mls/hr Ondansetron HCl 8 mg/ Sodium (Chloride) 54 mls @ 216 mls/hr IV Q6H PRN PRN Reason: NAUSEA Sodium Chloride (Normal Saline) 1,000 mls @ 999 mls/hr IV .Bolus ONE Stop: 11/13/16 08:58 Last Admin: 11/13/16 08:49 Dose: 999 mls/hr Ceftriaxone Sodium/Dextrose 1 (gm/ Premix) 50 mls @ 100 mls/hr IV Q24H [facility] Magnesium Sulfate 2 gm/ Premix 50 mls @ 50 mls/hr IV ONETIME ONE Stop: 11/13/16 11:40 Last Admin: 11/13/16 11:05 Dose: 50 mls/hr Sodium Chloride (Normal Saline) 1,000 mls @ 999 mls/hr IV .Bolus ONE Stop: 11/13/16 15:17 Last Admin: 11/13/16 14:24 Dose: 999 mls/hr Sodium Chloride (Normal Saline) 500 mls @ 999 mls/hr IV STAT ONE Stop: 11/13/16 18:45 Last Admin: 11/13/16 18:23 Dose: 999 mls/hr Methylprednisolone Sodium Succinate (Solu-Medrol) 125 mg IVPUSH ONETIME ONE Stop: 11/12/16 19:28 Last Admin: 11/12/16 19:45 Dose: 125 mg - Exam Quality Assessment: Denies: Supplemental Oxygen General: Reports: Alert, Oriented, Cooperative, No Acute Distress Neck: Reports: Supple Lungs: Reports: Normal Respiratory Effort, Wheezing, Other (much better air exchange today.) Cardiovascular: Reports: Regular Rate, Regular Rhythm GI/Abdominal Exam: Normal Bowel Sounds, Soft, Non-Tender, No Organomegaly, No Distention, No Abnormal Bruit, No Mass, Pelvis Stable Extremities: Normal Inspection, Normal Range of Motion, Non-Tender, No Pedal Edema, Normal Capillary Refill Wound/Incisions: Reports: Healing Well Neurological: Reports: No New Focal Deficit Psy/Mental Status: Reports: Alert, Normal Affect, Normal Mood *Q Meaningful Use (DIS) - VTE *Q VTE Criteria *Q: - Stroke *Q Stroke Criteria *Q: - AMI *Q AMI Criteria *Q:
[2016-11-14] MEDS: Enoxaparin 40 MG/0.4 ML Syringe SUBCUT SCH (10:04)
== END 2016-11-14 11:25 | disposition home or self-care (01) ==
LOC: MW.ED 18:57 → MW.MS 20:43
PROVIDERS: ADMIT Internal Medicine; ATTEND Internal Medicine
DX: J45.31 Mild persistent asthma with (acute) exacerbation (principal); R09.02 Hypoxemia; D72.829 Elevated white blood cell count, unspecified; F32.9 Major depressive disorder, single episode, unspecified; E11.9 Type 2 diabetes mellitus without complications; E66.9 Obesity, unspecified; Z88.1 Allergy status to other antibiotic agents; Z88.2 Allergy status to sulfonamides; Z88.8 Allergy status to other drugs, medicaments and biological substances; Z68.30 Body mass index [BMI] 30.0-30.9, adult; Z90.49 Acquired absence of other specified parts of digestive tract; Z90.710 Acquired absence of both cervix and uterus; Z93.3 Colostomy status; F17.210 Nicotine dependence, cigarettes, uncomplicated; Z79.84 Long term (current) use of oral hypoglycemic drugs; Z79.899 Other long term (current) drug therapy
CPT/HCPCS: 36415; 71020; 80048; 80053; 82962; 83036; 83605; 83735; 84100; 84484; 85025; 87040; 87070; 87077; 87205; 93005; 94640; 94664; 96361; 96365; 96366; 96367; 96368; 96372; 96375; 96376; 99285; A9270; G0378; J0456; J0696; J1650; J1815; J1956; J2405; J2930; J3475; J7040; J7050; 99283

== ENCOUNTER 2017-03-18 16:41 | Emergency (ER) | payer BC ==
[2017-03-18] MEDS ORDERED: Albuterol/Ipratropium 3.0-0.5 MG/3 ML Neb Soln NEB ONE (17:13)
--- NOTE | 2017-03-18 17:13 | EDM.PDOC ---
ED HPI GENERAL MEDICAL PROBLEM - General Chief Complaint: Respiratory Problem Stated Complaint: SHORT OF BREATH/FAST HEART RATE Time Seen by Provider: 03/18/17 17:10 Source of Information: Reports: Patient History Limitations: Reports: No Limitations - History of Present Illness INITIAL COMMENTS - FREE TEXT/NARRATIVE: HISTORY AND PHYSICAL: History of present illness: Patient is a 52-year-old female who presents to the emergency room today with complaints of shortness of breath, dyspnea and cough which started last night. She does have a history of asthma, pneumonia, hypoxia and frequently does have episodes similar to this where she requires additional medications. She denies any chest pain, fever, chills, abdominal pain, nausea, vomiting or diarrhea. Nonproductive cough, does have a history of smoking. Has received the [id number] influenza vaccine. Review of systems: As per history of present illness and below otherwise all systems reviewed and negative. Past medical history: As per history of present illness and as reviewed below otherwise noncontributory. Surgical history: As per history of present illness and as reviewed below otherwise noncontributory. Social history: No reported history of drug or alcohol abuse. Family history: As per history of present illness and as reviewed below otherwise noncontributory. Physical exam: HEENT: Atraumatic, normocephalic, pupils reactive, negative for conjunctival pallor or scleral icterus, mucous membranes moist, throat clear, neck supple, nontender, trachea midline. Left tympanic membrane is erythematous with good light reflex, nonbulging. Right TM normal. Lungs: Clear to auscultation, breath sounds equal bilaterally, chest nontender. Heart: S1S2, regular rate and rhythm without overt murmurs Abdomen: Soft, nondistended, nontender. Negative for masses or hepatosplenomegaly. Negative for costovertebral tenderness. Pelvis: Stable nontender. Genitourinary: Deferred. Rectal: Deferred. Extremities: Atraumatic, moves all extremities per self without difficulty or deficit. Neurovascular unremarkable. Skin: Intact, warm, slightly diaphoretic. No overt lesions or rashes. Neuro: Awake, alert, oriented. Cranial nerves II through XII unremarkable. Cerebellum unremarkable. Motor and sensory unremarkable throughout. Exam nonfocal. Chest x-ray is normal. Influenza test is positive for influenza A. sounds have improved after receiving the DuoNeb. Vital signs are stable. We did discuss her current medication regimen and she does take a inhaler daily along with prednisone. She states that she has been on prednisone for most of January going into March for her breathing, per her PCP. Diagnostics: Chest x-ray, influenza Therapeutics: Stalin Impression: Asthma exacerbation Influenza A Plan: 1. You tested positive for Influenza A. History respiratory illness can exacerbate your asthma. Please take 40 mg 3 days, 20 mg 3 days, 10 mg [address] primary care provider if she would like you to continue your prednisone. As your asthma has flared please take your inhaler and nebulizer treatments routinely for the next 2-3 days. 2. Supportive care measures such as Tylenol and/or ibuprofen for pain and fever management. Encourage plenty of fluids to prevent dehydration. Rest. 3. Follow up with her primary care provider in the next 1-2 days. Return to the ED as needed and as discussed. Definitive disposition and diagnosis as appropriate pending reevaluation and review of above. Duration: Hour(s): Location: Reports: Chest - Related Data Allergies Allergy/AdvReac Type Severity Reaction Status Date / Time acetaminophen Allergy Abdominal Verified 11/12/16 19:17 [From Tylenol-Codeine #3] Pain ciprofloxacin [From Cipro] Allergy Renal Verified 11/12/16 19:17 Failure ciprofloxacin HCl Allergy Renal Verified 11/12/16 19:17 [From Cipro] Failure codeine phosphate Allergy Abdominal Verified 11/12/16 19:17 [From Tylenol-Codeine #3] Pain cyclobenzaprine Allergy Rash Verified 11/12/16 19:17 Sulfa (Sulfonamide Allergy Hives Verified 11/12/16 19:17 Antibiotics) Home Meds: Home Meds Albuterol [Ventolin HFA] 2 puff INH QID PRN 07/22/13 [History] DULoxetine [Cymbalta] 60 mg PO DAILY 07/22/13 [History] metFORMIN [Glucophage XR] 1,000 mg PO BIDM 07/22/13 [History] Levothyroxine 125 mcg PO ACBREAKFAST 04/29/15 [History] Montelukast [Singulair] 10 mg PO DAILY 05/07/15 [History] Mometasone/Formoterol [Dulera 100-5 MCG] 2 puff INH BID 11/12/16 [History] Tiotropium [Spiriva HandiHaler] 18 mcg INH BID 11/12/16 [History] Levofloxacin [Levaquin] 750 mg PO DAILY #5 tablet 11/14/16 [Rx] Nicotine [Habitrol] 14 mg TRDERM DAILY #1 box 11/14/16 [Rx] Prednisone [IJD: Prednisone] 10 - 40 mg PO DAILY #30 tab 11/14/16 [Rx] Past Medical History HEENT History: Reports: Impaired Vision Cardiovascular History: Reports: None. Denies: Afib, Blood Clots/VTE/DVT, Hypertension, ND Respiratory History: Reports: Asthma, Bronchitis, Recurrent, Pneumonia, Recurrent Other Respiratory History: pneumonia and bronchitis Gastrointestinal History: Reports: Cholelithiasis Genitourinary History: Reports: None ACQUISITION MANAGER History: Reports: Other (See Below) Other OB/BYN History: Cyst Musculoskeletal History: Reports: None Neurological History: Reports: None Psychiatric History: Reports: Depression Endocrine/Metabolic History: Reports: Diabetes, Type II, Obesity/BMI 30+ Hematologic History: Reports: None Immunologic History: Reports: None Oncologic (Cancer) History: Reports: None Dermatologic History: Reports: None - Infectious Disease History Infectious Disease History: Reports: Chicken Pox - Past Surgical History HEENT Surgical History: Reports: None Respiratory Surgical History: Reports: None GI Surgical History: Reports: Cholecystectomy, Colostomy Female Surgical History: Reports: Hysterectomy Endocrine Surgical History: Reports: None Musculoskeletal Surgical History: Reports: Other (See Below) Other Musculoskeletal Surgeries/Procedures:: Neck bone graft Social & Family History - Family History Family Medical History: Noncontributory - Tobacco Use Smoking Status *Q: Current Every Day Smoker Years of Tobacco use: 30 Packs/Tins Daily: 1 Used Tobacco, but Quit: No Second Hand Smoke Exposure: No - Caffeine Use Caffeine Use: Reports: Coffee, Soda, Tea - Alcohol Use Days Per Week of Alcohol Use: 0 Number of Drinks Per Day: 1 Total Drinks Per Week: 0 - Recreational Drug Use Recreational Drug Use: No ED ROS GENERAL - Review of Systems Review Of Systems: ROS reveals no pertinent complaints other than HPI. ED EXAM, GENERAL - Physical Exam Exam: See Below (See dictation) Course - Vital Signs Last Recorded V/S: Last Vital Signs Temp 96.6 F 03/18/17 17:21 Pulse 82 03/18/17 17:21 Resp 18 01/16/18 17:21 BP 142/75 H 03/18/17 17:21 Pulse Ox 94 L 03/18/17 17:21 - Orders/Labs/Meds Orders: Active Orders 24 hr Category Date Time Status EKG Documentation Completion [RC] STAT Care 03/18/17 17:19 Active RT Aerosol Therapy [RC] ASDIRECTED Care 03/18/17 17:13 Active Chest 2V [CR] Stat Exams 03/18/17 17:13 Taken Meds: Medications Discontinued Medications Generic Name Dose Route Start Last Admin Trade Name Freq PRN Reason Stop Dose Admin Albuterol/Ipratropium 3 ml 03/18/17 17:13 03/18/17 17:19 Duoneb 3.0-0.5 Mg/3 Ml NEB 03/18/17 17:14 3 ml ONETIME ONE Administration Methylprednisolone Sodium Succinate 125 mg 03/18/17 19:06 Solu-Medrol IVPUSH 03/18/17 19:07 ONETIME ONE Departure - Departure Time of Disposition: 19:10 Disposition: Home, Self-Care 01 Clinical Impression: Influenza Asthma exacerbation Qualifiers: Asthma severity: mild Asthma persistence: persistent Qualified Code(s): J45.31 - Mild persistent asthma with (acute) exacerbation - Discharge Information Referrals: Sera Triplett DEPUTY PROBATION OFFICER [Primary Care Provider] - Forms: ED Department Discharge Additional Instructions: My general discharge The following information is given to patients seen in the emergency department who are being discharged to home. This information is to outline your options for follow-up care. We provide all patients seen in our emergency department with a follow-up referral. The need for follow-up, as well as the timing and circumstances, are variable depending upon the specifics of your emergency department visit. If you don't have a primary care physician on staff, we will provide you with a referral. We always advise you to contact your personal physician following an emergency department visit to inform them of the circumstance of the visit and for follow-up with them and/or the need for any referrals to a consulting specialist. The emergency department will also refer you to a specialist when appropriate. This referral assures that you have the opportunity for follow-up care with a specialist. All of these measure are taken in an effort to provide you with optimal care, which includes your follow-up. Under all circumstances we always encourage you to contact your private physician who remains a resource for coordinating your care. When calling for follow-up care, please make the office aware that this follow-up is from your recent emergency room visit. If for any reason you are refused follow-up, please contact the [facility] Emergency Department at and asked to speak to the emergency department charge nurse. [facility] [address] [place] [id number] 1. You tested positive for Influenza A. History respiratory illness can exacerbate your asthma. Please take 40 mg 3 days, 20 mg 3 days, 10 mg [address] primary care provider if she would like you to continue your prednisone. As your asthma has flared please take your inhaler and nebulizer treatments routinely for the next 2-3 days. 2. Supportive care measures such as Tylenol and/or ibuprofen for pain and fever management. Encourage plenty of fluids to prevent dehydration. Rest. 3. Follow up with her primary care provider in the next 1-2 days. Return to the ED as needed and as discussed. - My Orders Last 24 Hours: My Active Orders 03/18/17 17:13 RT Aerosol Therapy [RC] ASDIRECTED Chest 2V [CR] Stat 03/18/17 17:19 EKG Documentation Completion [RC] STAT - Assessment/Plan Last 24 Hours: My Active Orders 03/18/17 17:13 RT Aerosol Therapy [RC] ASDIRECTED Chest 2V [CR] Stat 03/18/17 17:19 EKG Documentation Completion [RC] STAT
[2017-03-18] MEDS ORDERED: methylPREDNISolone Sodium Succinate 125 MG/2 ML SDV IVPUSH ONE (19:06)
[2017-03-18 19:40] VITALS: BP 130/69
--- NOTE | 2017-03-19 12:37 | CR ---
EXAM DATE: 03/18/17 PATIENT'S AGE: 52 Patient: CHELLY HAMILTON Facility: [place], [place] Site . Site : [id number] Study: XRay Chest [id number]/[id number] 5:53:45 PM Ordering Physician: Doctor Beltre Final Report: INDICATION: PAIN, SOB. POSSIBLE PNEUMONIA. TACHYCARDIA. HX OF ASTHMA TECHNIQUE: Chest 2 views. COMPARISON: 11/12/16 FINDINGS: Cardiovascular and mediastinum: Heart size and vasculature are normal in caliber and appearance. Mediastinum is within normal limits. Lungs and pleural spaces: Lungs are clear. No sign of infiltrate or mass. No sign of pleural effusion. No pneumothorax. Bones and soft tissues: No significant findings. IMPRESSION: Unremarkable chest. Dictated by: Ron Romano MD @ 03/18/2017 18:43:09 (Electronic Signature) Report Signed by Proxy. UCHE
== END 2017-03-18 19:39 | disposition home or self-care (01) ==
LOC: MW.ED 16:41
DX: J10.1 Influenza due to other identified influenza virus with other respiratory manifestations (principal); J45.31 Mild persistent asthma with (acute) exacerbation; I10 Essential (primary) hypertension; E11.9 Type 2 diabetes mellitus without complications; F17.210 Nicotine dependence, cigarettes, uncomplicated; Z88.8 Allergy status to other drugs, medicaments and biological substances; Z88.1 Allergy status to other antibiotic agents; Z88.5 Allergy status to narcotic agent; Z88.2 Allergy status to sulfonamides; Z79.899 Other long term (current) drug therapy
CPT/HCPCS: 71046; 87804; 93005; 96372; 99285; J2930; 99284

== ENCOUNTER 2017-03-24 14:49 | Observation (INO) | payer BC ==
[2017-03-24] MEDS ORDERED: Sodium Chloride 0.9% 10 ML Syringe FLUSH PRN (15:05)
[2017-03-24] MEDS ORDERED: Sodium Chloride 0.9% 2.5 ML Syringe FLUSH PRN (15:05)
[2017-03-24] MEDS ORDERED: Albuterol/Ipratropium 3.0-0.5 MG/3 ML Neb Soln NEB ONE (15:06)
[2017-03-24] MEDS ORDERED: methylPREDNISolone Sodium Succinate 125 MG/2 ML SDV IVPUSH ONE (15:06)
[2017-03-24] MEDS ORDERED: Sodium Chloride 0.9% 1,000 ML IV ONE ×2 (15:06→22:42)
--- NOTE | 2017-03-24 15:15 | EDM.PDOC ---
ED HPI GENERAL MEDICAL PROBLEM - General Chief Complaint: Respiratory Problem Stated Complaint: TROUBLE BREATHING Time Seen by Provider: 03/24/17 14:58 - History of Present Illness INITIAL COMMENTS - FREE TEXT/NARRATIVE: HISTORY AND PHYSICAL: History of present illness: Patient is 52-year-old white female history of asthma presents with some shortness of breath general malaise fever chills was diagnosed 1 week prior with influenza she had no vomiting no diarrhea she reports oximetry was 88% at home on arrival 92 % she still feels generally weak with mild shortness of breath. Review of systems: As per history of present illness and below otherwise all systems reviewed and negative. Past medical history: As per history of present illness and as reviewed below otherwise noncontributory. Surgical history: As per history of present illness and as reviewed below otherwise noncontributory. Social history: No reported history of drug or alcohol abuse. Family history: As per history of present illness and as reviewed below otherwise noncontributory. Physical exam: HEENT: Atraumatic, normocephalic, pupils reactive, negative for conjunctival pallor or scleral icterus, mucous membranes dry, throat clear, neck supple, nontender, trachea midline. Lungs: Diminished, breath sounds equal bilaterally, chest nontender. Heart: S1S2, regular, negative for clicks, rubs, or JVD. Abdomen: Soft, nondistended, nontender. Negative for masses or hepatosplenomegaly. Negative for costovertebral tenderness. Pelvis: Stable nontender. Genitourinary: Deferred. Rectal: Deferred. Extremities: Atraumatic, negative for cords or calf pain. Neurovascular unremarkable. Neuro: Awake, alert, oriented. Cranial nerves II through XII unremarkable. Cerebellum unremarkable. Motor and sensory unremarkable throughout. Exam nonfocal. Diagnostics: CBC CMP blood culture 2 EKG troponin chest x-ray lactic acid Therapeutics: Normal saline 1 L bolus Solu-Medrol 125 mg albuterol ipratropium nebulizer Impression: #1 asthmatic exacerbation #2 history of influenza #3 hypoxemia #4 dehydration Definitive disposition and diagnosis as appropriate pending reevaluation and review of above. Chest Pain Score (Numeric/FACES): 3 - Related Data Allergies Allergy/AdvReac Type Severity Reaction Status Date / Time acetaminophen Allergy Abdominal Verified 11/12/16 19:17 [From Tylenol-Codeine #3] Pain ciprofloxacin [From Cipro] Allergy Renal Verified 11/12/16 19:17 Failure ciprofloxacin HCl Allergy Renal Verified 11/12/16 19:17 [From Cipro] Failure codeine phosphate Allergy Abdominal Verified 11/12/16 19:17 [From Tylenol-Codeine #3] Pain cyclobenzaprine Allergy Rash Verified 11/12/16 19:17 Sulfa (Sulfonamide Allergy Hives Verified 11/12/16 19:17 Antibiotics) Home Meds: Home Meds Albuterol [Ventolin HFA] 2 puff INH QID PRN 07/22/13 [History] DULoxetine [Cymbalta] 60 mg PO DAILY 07/22/13 [History] metFORMIN [Glucophage XR] 1,000 mg PO BIDM 07/22/13 [History] Levothyroxine 125 mcg PO ACBREAKFAST 04/29/15 [History] Mometasone/Formoterol [Dulera 100-5 MCG] 2 puff INH BID 11/12/16 [History] Tiotropium [Spiriva HandiHaler] 18 mcg INH BID 11/12/16 [History] Prednisone [IJD: Prednisone] 10 - 40 mg PO DAILY #30 tab 11/14/16 [Rx] Venlafaxine [Effexor] 37.5 mg PO DAILY 03/24/17 [History] Past Medical History HEENT History: Reports: Impaired Vision Cardiovascular History: Reports: None Respiratory History: Reports: Asthma, Bronchitis, Recurrent, Pneumonia, Recurrent Other Respiratory History: pneumonia and bronchitis Gastrointestinal History: Reports: Cholelithiasis Genitourinary History: Reports: None 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) Other OB/BYN History: Cyst Musculoskeletal History: Reports: None Neurological History: Reports: None Psychiatric History: Reports: Depression Endocrine/Metabolic History: Reports: Diabetes, Type II, Obesity/BMI 30+ Hematologic History: Reports: None Immunologic History: Reports: None Oncologic (Cancer) History: Reports: None Dermatologic History: Reports: None - Infectious Disease History Infectious Disease History: Reports: Chicken Pox - Past Surgical History HEENT Surgical History: Reports: None Respiratory Surgical History: Reports: None GI Surgical History: Reports: Cholecystectomy, Colostomy Female Surgical History: Reports: Hysterectomy Endocrine Surgical History: Reports: None Musculoskeletal Surgical History: Reports: Other (See Below) Other Musculoskeletal Surgeries/Procedures:: Neck bone graft Social & Family History - Family History Family Medical History: Noncontributory - Tobacco Use Smoking Status *Q: Former Smoker Years of Tobacco use: 30 Packs/Tins Daily: 1 Used Tobacco, but Quit: Yes Month Tobacco Last Used: jan 2017 Second Hand Smoke Exposure: No - Caffeine Use Caffeine Use: Reports: Coffee, Soda - Alcohol Use Days Per Week of Alcohol Use: 0 Number of Drinks Per Day: 1 Total Drinks Per Week: 0 - Recreational Drug Use Recreational Drug Use: No ED ROS GENERAL - Review of Systems Review Of Systems: ROS reveals no pertinent complaints other than HPI. ED EXAM, GENERAL - Physical Exam Exam: See Below (See dictation) Course - Vital Signs Last Recorded V/S: Last Vital Signs Temp 36.1 C 03/24/17 15:06 Pulse 91 03/24/17 15:10 Resp 18 03/24/17 15:06 BP 129/92 H 03/24/17 15:06 Pulse Ox 92 L 03/24/17 15:06 - Orders/Labs/Meds Orders: Active Orders 24 hr Category Date Time Status Cardiac Monitoring [RC] . DIRECTED Care 03/24/17 15:05 Active EKG Documentation Completion [RC] STAT Care 03/24/17 15:05 Active Oxygen Therapy, ED [RC] ASDIRECTED Care 03/24/17 15:05 Active Pulse Oximetry [RC] ASDIRECTED Care 03/24/17 15:05 Active RT Aerosol Therapy [RC] ASDIRECTED Care 03/24/17 15:10 Active CULTURE BLOOD [BC] Stat Lab 03/24/17 15:21 Received CULTURE BLOOD [BC] Stat Lab 03/24/17 15:26 Received Sodium Chloride 0.9% [Saline Flush] Med 03/24/17 15:05 Active 10 ml FLUSH ASDIRECTED PRN Sodium Chloride 0.9% [Saline Flush] Med 03/24/17 15:05 Active 2.5 ml FLUSH ASDIRECTED PRN Blood Culture x2 Reflex Set [OM.PC] Stat Oth 03/24/17 15:06 Ordered Saline Lock Insert [OM.PC] Stat Oth 03/24/17 15:05 Ordered Medication Orders Sodium Chloride (Saline Flush) 10 ml FLUSH ASDIRECTED PRN PRN Reason: Keep Vein Open Sodium Chloride (Saline Flush) 2.5 ml FLUSH ASDIRECTED PRN PRN Reason: Keep Vein Open Labs: Laboratory Tests 03/24/17 03/24/17 03/24/17 Range/Units 15:26 15:26 15:26 WBC 12.71 H (4.0-11.0) K/uL RBC 4.70 (4.30-5.90) M/uL Hgb 15.3 (12.0-16.0) g/dL Hct 45.4 (36.0-46.0) % MCV 96.6 (80.0-98.0) fL MCH 32.6 H (27.0-32.0) pg MCHC 33.7 (31.0-37.0) g/dL RDW Std Deviation 53.6 (28.0-62.0) fl RDW Coeff of Greg 15 (11.0-15.0) % Plt Count 220 (150-400) K/uL MPV 8.20 (7.40-12.00) fL Neut % (Auto) 64.2 (48.0-80.0) % Lymph % (Auto) 24.0 (16.0-40.0) % [place] % (Auto) 10.7 (0.0-15.0) % Eos % (Auto) 0.8 (0.0-7.0) % Baso % (Auto) 0.3 (0.0-1.5) % Neut # (Auto) 8.2 H (1.4-5.7) K/uL Lymph # (Auto) 3.1 H (0.6-2.4) K/uL [place] # (Auto) 1.4 H (0.0-0.8) K/uL Eos # (Auto) 0.1 (0.0-0.7) K/uL Baso # (Auto) 0.0 (0.0-0.1) K/uL Nucleated RBC % 0.0 /100WBC Nucleated RBCs # 0 K/uL Lactate 2.5 H (0.20-2.00) mmol/L Sodium 140 (136-146) mmol/L Potassium 3.9 (3.5-5.1) mmol/L Chloride 100 (98-110) mmol/L Carbon Dioxide 27 (21-31) mmol/L BUN 13 (6.0-23.0) mg/dL Creatinine 0.8 (0.6-1.5) mg/dL Est Cr Clr Drug Dosing 59.76 mL/min Estimated GFR (MDRD) > 60.0 ml/min Glucose 118 H (60-110) mg/dL Calcium 9.9 (8.8-10.8) mg/dL Total Bilirubin 0.4 (0.1-1.5) mg/dL AST 16 (5-40) IU/L ALT 31 (8-54) IU/L Alkaline Phosphatase 75 (40-150) Troponin I < 0.10 (0.0-0.29) NG/ML Total Protein 7.0 (6.0-8.0) g/dL Albumin 4.1 (3.5-5.0) g/dL Globulin 2.9 (2.0-3.5) g/dL Albumin/Globulin Ratio 1.4 (1.3-2.8) Meds: Medications Generic Name Dose Route Start Last Admin Trade Name Freq PRN Reason Stop Dose Admin Sodium Chloride 10 ml 03/24/17 15:05 Saline Flush FLUSH ASDIRECTED PRN Keep Vein Open Sodium Chloride 2.5 ml 03/24/17 15:05 Saline Flush FLUSH ASDIRECTED PRN Keep Vein Open Discontinued Medications Generic Name Dose Route Start Last Admin Trade Name Freq PRN Reason Stop Dose Admin Albuterol/Ipratropium 3 ml 03/24/17 15:06 03/24/17 15:24 Duoneb 3.0-0.5 Mg/3 Ml NEB 03/24/17 15:07 3 ml ONETIME ONE Administration Sodium Chloride 1,000 mls @ 999 mls/hr 03/24/17 15:06 03/24/17 15:23 Normal Saline IV 03/24/17 16:06 999 mls/hr STAT ONE Administration Methylprednisolone Sodium Succinate 125 mg 03/24/17 15:06 03/24/17 15:24 Solu-Medrol IVPUSH 03/24/17 15:07 125 mg ONETIME ONE Administration Departure - Departure Time of Disposition: 16:23 Disposition: Refer to Observation Condition: Good Clinical Impression: Influenza, Dyspnea, Acute asthma - Discharge Information Referrals: PCP,None [Primary Care Provider] - Forms: ED Department Discharge - My Orders Last 24 Hours: My Active Orders 03/24/17 15:05 Cardiac Monitoring [RC] . DIRECTED EKG Documentation Completion [RC] STAT Oxygen Therapy, ED [RC] ASDIRECTED Pulse Oximetry [RC] ASDIRECTED Sodium Chloride 0.9% [Saline Flush] 10 ml FLUSH ASDIRECTED PRN Sodium Chloride 0.9% [Saline Flush] 2.5 ml FLUSH ASDIRECTED PRN Saline Lock Insert [OM.PC] Stat 03/24/17 15:06 Blood Culture x2 Reflex Set [OM.PC] Stat 03/24/17 15:10 RT Aerosol Therapy [RC] ASDIRECTED 03/24/17 15:21 CULTURE BLOOD [BC] Stat 03/24/17 15:26 CULTURE BLOOD [BC] Stat - Assessment/Plan Last 24 Hours: My Active Orders 03/24/17 15:05 Cardiac Monitoring [RC] . DIRECTED EKG Documentation Completion [RC] STAT Oxygen Therapy, ED [RC] ASDIRECTED Pulse Oximetry [RC] ASDIRECTED Sodium Chloride 0.9% [Saline Flush] 10 ml FLUSH ASDIRECTED PRN Sodium Chloride 0.9% [Saline Flush] 2.5 ml FLUSH ASDIRECTED PRN Saline Lock Insert [OM.PC] Stat 03/24/17 15:06 Blood Culture x2 Reflex Set [OM.PC] Stat 03/24/17 15:10 RT Aerosol Therapy [RC] ASDIRECTED 03/24/17 15:21 CULTURE BLOOD [BC] Stat 03/24/17 15:26 CULTURE BLOOD [BC] Stat
--- NOTE | 2017-03-24 16:05 | CR ---
EXAMINATION: Portable chest radiograph. HISTORY: Shortness of breath. Comparison: 11/12/2016. FINDINGS: The trachea is midline. The cardiomediastinal silhouette is within normal limits. No pulmonary infilt rates, effusions or pneumothorax. Mild interstitial prominence. Osseous structures appear unremarkable. Anterior cervical fusion hardware noted. IMPRESSION: No acute cardiopulmonary process.
[2017-03-24 16:07] LABS: CHLORIDE,CL 100 mmol/L (98-110); SODIUM,NA 140 mmol/L (136-146)
[2017-03-24] MEDS: Sodium Chloride 0.9% 1,000 ML IV SCH (18:37)
[2017-03-24] MEDS ORDERED: Albuterol HFA 18 Gm Inhaler INH PRN (20:11)
--- NOTE | 2017-03-24 20:21 | PCM.HP ---
H&P History of Present Illness - General Admit Problem/Dx: Admission Diagnosis/Problem Admission Diagnosis/Problem Asthma - History of Present Illness Initial Comments - Free Text/Narative: 52 yo female with pmh of asthma who presented last week to the ED and screened positive for influenza A she was discharged home on prednisone tigist for asthma exacerbation. She reports that she has not felt any better and her shortness of breath has not improved. She has been taking her albuterol nebulizer but does not take inhaled steroids due to thrush despite aggressive mouth rising after use. She tried to get a clinic appointment so that she could get a doctor's note so that she could go back to work, but since there wasn't a clinic doctor available she went to the ED. In the ED she was noted to be satting 90% on 2 liters of oxygen via NC. Patient agreed for referral for observation. Chest Pain Score (Numeric/FACES): 3 - Related Data Allergies/Adverse Reactions: Allergies Allergy/AdvReac Type Severity Reaction Status Date / Time acetaminophen Allergy Abdominal Verified 11/12/16 19:17 [From Tylenol-Codeine #3] Pain ciprofloxacin [From Cipro] Allergy Renal Verified 11/12/16 19:17 Failure ciprofloxacin HCl Allergy Renal Verified 11/12/16 19:17 [From Cipro] Failure codeine phosphate Allergy Abdominal Verified 11/12/16 19:17 [From Tylenol-Codeine #3] Pain cyclobenzaprine Allergy Rash Verified 11/12/16 19:17 Sulfa (Sulfonamide Allergy Hives Verified 11/12/16 19:17 Antibiotics) Home Medications: Home Meds Albuterol [Ventolin HFA] 2 puff INH QID PRN 07/22/13 [History] DULoxetine [Cymbalta] 60 mg PO DAILY 07/22/13 [History] metFORMIN [Glucophage XR] 1,000 mg PO BIDM 07/22/13 [History] Levothyroxine 125 mcg PO ACBREAKFAST 04/29/15 [History] Mometasone/Formoterol [Dulera 100-5 MCG] 2 puff INH BID 11/12/16 [History] Prednisone [IJD: Prednisone] 10 - 40 mg PO DAILY #30 tab 11/14/16 [Rx] Venlafaxine [Effexor] 37.5 mg PO DAILY 03/24/17 [History] Tiotropium [place] [Spiriva Respimat] 2 inh IH DAILY 03/25/17 [History] Past Medical History HEENT History: Reports: Impaired Vision Cardiovascular History: Reports: None Respiratory History: Reports: Asthma, Bronchitis, Recurrent, Pneumonia, Recurrent Other Respiratory History: pneumonia and bronchitis Gastrointestinal History: Reports: Cholelithiasis Genitourinary History: Reports: None 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) Other OB/BYN History: Cyst Musculoskeletal History: Reports: None Neurological History: Reports: None Psychiatric History: Reports: Depression Endocrine/Metabolic History: Reports: Diabetes, Type II, Obesity/BMI 30+ Hematologic History: Reports: None Immunologic History: Reports: None Oncologic (Cancer) History: Reports: None Dermatologic History: Reports: None - Infectious Disease History Infectious Disease History: Reports: Chicken Pox - Past Surgical History HEENT Surgical History: Reports: None Respiratory Surgical History: Reports: None GI Surgical History: Reports: Cholecystectomy, Colostomy Female Surgical History: Reports: Hysterectomy Endocrine Surgical History: Reports: None Musculoskeletal Surgical History: Reports: Other (See Below) Other Musculoskeletal Surgeries/Procedures:: Neck bone graft Social & Family History - Family History Family Medical History: Noncontributory - Tobacco Use Smoking Status *Q: Former Smoker Years of Tobacco use: 20 Packs/Tins Daily: 0.5 Used Tobacco, but Quit: Yes Tobacco Last Used: march Tobacco Use Comment: Stop smoking last week. Second Hand Smoke Exposure: No - Caffeine Use Caffeine Use: Reports: Coffee - Alcohol Use Days Per Week of Alcohol Use: 0 Number of Drinks Per Day: 1 Total Drinks Per Week: 0 - Recreational Drug Use Recreational Drug Use: No H&P Review of Systems - Review of Systems: Review Of Systems: ROS reveals no pertinent complaints other than HPI. Exam - Exam Exam: See Below - Vital Signs Vital Signs: Last Vital Signs Temp 36.8 C 03/24/17 17:22 Pulse 91 03/24/17 17:22 Resp 18 03/24/17 17:22 BP 118/73 03/24/17 17:22 Pulse Ox 92 L 03/24/17 17:22 Weight: 81.692 kg - Exam General: Alert, Oriented Lungs: Normal Respiratory Effort, Decreased Breath Sounds Cardiovascular: Regular Rate, Regular Rhythm GI/Abdominal Exam: Soft, Non-Tender Extremities: No Pedal Edema Skin: Warm, Dry, Intact - Patient Data Result Diagrams: 03/25/17 03:00 03/25/17 03:00 *Q Meaningful Use (ADM) - VTE *Q VTE Criteria *Q: - Stroke *Q Stroke Criteria *Q: - AMI *Q AMI Criteria *Q: Problem List Initiated/Reviewed/Updated: Yes Orders Last 24hrs: Active Orders 24 hr Category Date Time Status Antiembolic Devices [RC] PER UNIT ROUTINE Care 03/24/17 20:10 Active Oxygen Therapy [RC] PRN Care 03/24/17 20:09 Active RT Aerosol Therapy [RC] ASDIRECTED Care 03/24/17 20:10 Active Up ad Mary [RC] ASDIRECTED Care 03/24/17 20:09 Active VTE/DVT Education [RC] PER UNIT ROUTINE Care 03/24/17 20:09 Active Vital Signs [RC] Q4H Care 03/24/17 20:09 Active ADA Diabetic [[employer] Diet] [DIET Diet 03/24/17 Dinner Active ] BASIC METABOLIC PANEL,BMP [CHEM] AM Lab 03/25/17 05:11 Ordered CBC WITH AUTO DIFF [HEME] AM Lab 03/25/17 05:11 Ordered LACTIC ACID,WHOLE BLOOD [BG] Routine Lab 03/24/17 21:30 Ordered Albuterol [Ventolin HFA] Med 03/24/17 20:11 Ordered DOSE gm INH QID PRN Albuterol/Ipratropium [DuoNeb 3.0-0.5 MG/3 ML] Med 03/25/17 00:00 Ordered 3 ml NEB Q6HRRT Levothyroxine Med 03/25/17 07:30 Ordered 125 mcg PO ACBREAKFAST Sodium Chloride 0.9% [Normal Saline] 1,000 ml Med 03/24/17 18:00 Active IV ASDIRECTED Tiotropium [Spiriva HandiHaler] Med 03/24/17 21:00 Ordered 18 mcg INH BID Venlafaxine [Effexor] Med 03/25/17 09:00 Ordered 37.5 mg PO DAILY methylPREDNISolone Sod Succ [Solu-MEDROL] Med 03/24/17 20:00 Active 125 mg IVPUSH Q6H Sequential Compression Device [OM.PC] Per Unit Routine Oth 03/24/17 20:10 Ordered Resuscitation Status Routine Resus Stat 01/22/18 20:09 Ordered Medication Orders Albuterol (Ventolin Hfa) gm INH QID PRN PRN Reason: Shortness of Breath Albuterol/Ipratropium (Duoneb 3.0-0.5 Mg/3 Ml) 3 ml NEB Q6HRRT [facility] Sodium Chloride (Normal Saline) 1,000 mls @ 125 mls/hr IV ASDIRECTED [facility] Last Admin: 03/24/17 18:37 Dose: 125 mls/hr Levothyroxine Sodium (Levothyroxine) 125 mcg PO ACBREAKFAST [facility] Methylprednisolone Sodium Succinate (Solu-Medrol) 125 mg IVPUSH Q6H [facility] Sodium Chloride (Saline Flush) 10 ml FLUSH ASDIRECTED PRN PRN Reason: Keep Vein Open Sodium Chloride (Saline Flush) 2.5 ml FLUSH ASDIRECTED PRN PRN Reason: Keep Vein Open Tiotropium [place] (Spiriva Handihaler) 18 mcg INH BID [facility] Venlafaxine HCl (Effexor) 37.5 mg PO DAILY [facility] Assessment/Plan Comment:: 52 yo female admitted for asthma exacerbation. We will monitor overnight and treat with IV solumedrol and duonebs.
[2017-03-24] MEDS: methylPREDNISolone Sodium Succinate 125 MG/2 ML SDV IVPUSH SCH (20:57)
[2017-03-24] MEDS: Levofloxacin/Dextrose 5%-Water 750 MG in Premix Bag 1 BAG IV SCH (22:59)
[2017-03-24] MEDS: Albuterol/Ipratropium 3.0-0.5 MG/3 ML Neb Soln NEB SCH (23:02)
[2017-03-25] MEDS: methylPREDNISolone Sodium Succinate 125 MG/2 ML SDV IVPUSH SCH ×4 (02:26→19:29)
[2017-03-25 03:30] LABS: CHLORIDE,CL 101 mmol/L (98-110); SODIUM,NA 137 mmol/L (136-146)
[2017-03-25] MEDS: Sodium Chloride 0.9% 1,000 ML IV SCH ×3 (04:51→23:38)
[2017-03-25] MEDS ORDERED: Sodium Chloride 0.9% 1,000 ML IV ONE (05:26)
[2017-03-25] MEDS: Albuterol/Ipratropium 3.0-0.5 MG/3 ML Neb Soln NEB SCH ×2 (06:23→11:51)
[2017-03-25] MEDS: Levothyroxine 125 MCG Tab PO SCH (07:08)
[2017-03-25] MEDS: Venlafaxine 37.5 MG Tab PO SCH (08:37)
[2017-03-25] MEDS: Tiotropium Inhaler 18 MCG Inhalation Powder Cap Kit of 5 INH SCH (08:46)
--- NOTE | 2017-03-25 09:10 | PCM.PN ---
- General Info Date of Service: 03/25/17 Admission Dx/Problem (Free Text): Admission Diagnosis/Problem Admission Diagnosis/Problem Asthma Subjective Update: Feeling better today, still having a cough and some SOB but improved. Weaned off oxygen, 90-92% on RA. Hoping to go home today. No chest pain. Has a frontal headache, requesting Tylenol. Will monitor. Functional Status: Reports: Pain Controlled, Tolerating Diet, Ambulating, Urinating - Review of Systems HEENT: Reports: Headaches, Sinus Congestion. Denies: Visual Changes Pulmonary: Reports: Shortness of Breath (improving.), Cough. Denies: Sputum, Wheezing Cardiovascular: Denies: Chest Pain, Palpitations, Lightheadedness Gastrointestinal: Reports: No Symptoms. Denies: Abdominal Pain, Nausea, Vomiting Musculoskeletal: Reports: No Symptoms. Denies: Neck Pain Neurological: Reports: No Symptoms. Denies: Confusion Psychiatric: Reports: No Symptoms. Denies: Confusion - Patient Data Vitals - Most Recent: Last Vital Signs Temp 97.2 F 03/25/17 04:00 Pulse 78 03/25/17 04:00 Resp 18 03/25/17 04:00 BP 150/72 H 03/25/17 04:00 Pulse Ox 99 03/25/17 04:00 Weight - Most Recent: 81.692 kg I&O - Last 24 Hours: Intake & Output 03/24/17 03/25/17 03/25/17 22:59 06:59 14:59 Intake Total 3286 Output Total 2150 Balance 1136 Lab Results Last 24 Hours: Laboratory Results - last 24 hr 03/24/17 03/25/17 03/25/17 Range/Units 21:04 03:00 03:00 WBC 12.98 H (4.0-11.0) K/uL RBC 4.28 L (4.30-5.90) M/uL Hgb 13.7 (12.0-16.0) g/dL Hct 41.8 (36.0-46.0) % MCV 97.7 (80.0-98.0) fL MCH 32.0 (27.0-32.0) pg MCHC 32.8 (31.0-37.0) g/dL RDW Std Deviation 53.4 (28.0-62.0) fl RDW Coeff of Greg 15 (11.0-15.0) % Plt Count 220 (150-400) K/uL MPV 8.30 (7.40-12.00) fL Add Manual Diff YES Neutrophils % (Manual) 84 H (48.0-80.0) % Band Neutrophils % 6 % Lymphocytes % (Manual) 10 L (16.0-40.0) % Nucleated RBC % 0.0 /100WBC Absolute Seg Neuts 10.9 H (1.4-5.7) Band Neutrophils # 0.8 Lymphocytes # (Manual) 1.3 (0.6-2.4) Nucleated RBCs # 0 K/uL Lactate 4.9 H (0.20-2.00) mmol/L Sodium 137 (136-146) mmol/L Potassium 4.7 (3.5-5.1) mmol/L Chloride 101 (98-110) mmol/L Carbon Dioxide 23 (21-31) mmol/L BUN 14 (6.0-23.0) mg/dL Creatinine 0.8 (0.6-1.5) mg/dL Est Cr Clr Drug Dosing 59.76 mL/min Estimated GFR (MDRD) > 60.0 ml/min Glucose 366 H (60-110) mg/dL POC Glucose (60-110) mg/dL Calcium 9.3 (8.8-10.8) mg/dL 03/25/17 03/25/17 03/25/17 Range/Units 03:00 06:06 08:39 WBC (4.0-11.0) K/uL RBC (4.30-5.90) M/uL Hgb (12.0-16.0) g/dL Hct (36.0-46.0) % MCV (80.0-98.0) fL MCH (27.0-32.0) pg MCHC (31.0-37.0) g/dL RDW Std Deviation (28.0-62.0) fl RDW Coeff of Greg (11.0-15.0) % Plt Count (150-400) K/uL MPV (7.40-12.00) fL Add Manual Diff Neutrophils % (Manual) (48.0-80.0) % Band Neutrophils % % Lymphocytes % (Manual) (16.0-40.0) % Nucleated RBC % /100WBC Absolute Seg Neuts (1.4-5.7) Band Neutrophils # Lymphocytes # (Manual) (0.6-2.4) Nucleated RBCs # K/uL Lactate 4.6 H 3.3 H (0.20-2.00) mmol/L Sodium (136-146) mmol/L Potassium (3.5-5.1) mmol/L Chloride (98-110) mmol/L Carbon Dioxide (21-31) mmol/L BUN (6.0-23.0) mg/dL Creatinine (0.6-1.5) mg/dL Est Cr Clr Drug Dosing mL/min Estimated GFR (MDRD) ml/min Glucose (60-110) mg/dL POC Glucose 272 H (60-110) mg/dL Calcium (8.8-10.8) mg/dL Med Orders - Current: Current Medications Albuterol (Ventolin Hfa) 0 gm INH QID PRN PRN Reason: Shortness of Breath Albuterol/Ipratropium (Duoneb 3.0-0.5 Mg/3 Ml) 3 ml NEB Q6HRRT [facility] Last Admin: 03/25/17 06:23 Dose: 3 ml Sodium Chloride (Normal Saline) 1,000 mls @ 125 mls/hr IV ASDIRECTED [facility] Last Admin: 03/25/17 04:51 Dose: 125 mls/hr Levofloxacin/Dextrose 750 mg/ (Premix) 150 mls @ 100 mls/hr IV Q24H [facility] Last Admin: 03/24/17 22:59 Dose: 100 mls/hr Insulin Aspart (Novolog) 0 unit SUBCUT TIDAC [facility] PRN Reason: Protocol Levothyroxine Sodium (Levothyroxine) 125 mcg PO ACBREAKFAST [facility] Last Admin: 03/25/17 07:08 Dose: 125 mcg Methylprednisolone Sodium Succinate (Solu-Medrol) 125 mg IVPUSH Q6H [facility] Last Admin: 03/25/17 08:37 Dose: 125 mg Sodium Chloride (Saline Flush) 10 ml FLUSH ASDIRECTED PRN PRN Reason: Keep Vein Open Sodium Chloride (Saline Flush) 2.5 ml FLUSH ASDIRECTED PRN PRN Reason: Keep Vein Open Tiotropium [place] (Spiriva Handihaler) 18 mcg INH DAILY [facility] Last Admin: 03/25/17 08:46 Dose: 1 puff Venlafaxine HCl (Effexor) 37.5 mg PO DAILY [facility] Last Admin: 03/25/17 08:37 Dose: 37.5 mg Discontinued Medications Albuterol/Ipratropium (Duoneb 3.0-0.5 Mg/3 Ml) 3 ml NEB ONETIME ONE Stop: 03/24/17 15:07 Last Admin: 03/24/17 15:24 Dose: 3 ml Sodium Chloride (Normal Saline) 1,000 mls @ 999 mls/hr IV STAT ONE Stop: 03/24/17 16:06 Last Admin: 03/24/17 15:23 Dose: 999 mls/hr Sodium Chloride (Normal Saline) 1,000 mls @ 999 mls/hr IV .BOLUS ONE Stop: 03/24/17 23:42 Last Admin: 03/24/17 23:07 Dose: 999 mls/hr Sodium Chloride (Normal Saline) 1,000 mls @ 999 mls/hr IV .BOLUS ONE Stop: 03/25/17 06:26 Last Admin: 03/25/17 06:04 Dose: 999 mls/hr Methylprednisolone Sodium Succinate (Solu-Medrol) 125 mg IVPUSH ONETIME ONE Stop: 03/24/17 15:07 Last Admin: 03/24/17 15:24 Dose: 125 mg - Exam General: Alert, Oriented, Cooperative, No Acute Distress Lungs: Clear to Auscultation, Rhonchi (few scattered rhonchi) Cardiovascular: Regular Rate, Regular Rhythm GI/Abdominal Exam: Normal Bowel Sounds, Soft, Non-Tender, No Organomegaly, No Distention, No Abnormal Bruit, No Mass, Pelvis Stable Back Exam: Normal Inspection, Full Range of Motion Extremities: Normal Inspection, Normal Range of Motion Neurological: No New Focal Deficit Psy/Mental Status: Alert, Normal Affect, Normal Mood - Problem List & Annotations (1) Acute asthma SNOMED Code(s): 153835707 Code(s): J45.909 - UNSPECIFIED ASTHMA, UNCOMPLICATED Status: Acute Current Visit: Yes (2) Influenza SNOMED Code(s): 1834194 Code(s): J11.1 - FLU DUE TO UNIDENTIFIED INFLUENZA VIRUS W OTH RESP MANIFEST Status: Acute Current Visit: Yes (3) Hypoxemia SNOMED Code(s): 517751016 Code(s): R09.02 - HYPOXEMIA Status: Acute Current Visit: No (4) Elevated lactic acid level SNOMED Code(s): 7835494 Code(s): R79.89 - OTHER SPECIFIED ABNORMAL FINDINGS OF BLOOD CHEMISTRY Status: Acute Current Visit: Yes - Problem List Review Problem List Initiated/Reviewed/Updated: Yes - My Orders Last 24 Hours: My Active Orders 03/25/17 13:30 LACTIC ACID,WHOLE BLOOD [BG] Routine - Plan Plan:: 52 yo female admitted for asthma exacerbation. 1. Acute asthma exacerbation: Likely secondary to acute illness. Continue IV solumedrol and duonebs. Monitoring lactic acid, giving IVFs which is helping to reduce lactic acid. May be elevated from nebulizations. Patient does not appear toxic. Continue Levaquin. Continue Home inhalers. VTE prophylaxis: Continue SCDs Dispo: possibly later today or in am.
[2017-03-25] MEDS: Insulin Aspart 100 Units/ML 3 ML Pen SUBCUT SCH ×3 (09:19→17:22)
[2017-03-25] MEDS ORDERED: Acetaminophen 325 MG Tab PO PRN (10:06)
[2017-03-25] MEDS ORDERED: Albuterol/Ipratropium 3.0-0.5 MG/3 ML Neb Soln NEB PRN (13:35)
[2017-03-25] MEDS ORDERED: Insulin Aspart 100 Units/ML 3 ML Pen SUBCUT ONE (17:20)
[2017-03-25] MEDS: DULoxetine 30 MG Cap PO SCH (19:10)
[2017-03-25] MEDS: Levofloxacin/Dextrose 5%-Water 750 MG in Premix Bag 1 BAG IV SCH (22:02)
[2017-03-26] MEDS: methylPREDNISolone Sodium Succinate 125 MG/2 ML SDV IVPUSH SCH ×2 (01:46→09:17)
[2017-03-26] MEDS: Insulin Aspart 100 Units/ML 3 ML Pen SUBCUT SCH (07:16)
[2017-03-26] MEDS: Levothyroxine 125 MCG Tab PO SCH (07:17)
[2017-03-26] MEDS: Sodium Chloride 0.9% 1,000 ML IV SCH (07:21)
[2017-03-26] MEDS: Venlafaxine 37.5 MG Tab PO SCH (09:16)
[2017-03-26] MEDS: DULoxetine 30 MG Cap PO SCH (09:16)
[2017-03-26] MEDS: Tiotropium Inhaler 18 MCG Inhalation Powder Cap Kit of 5 INH SCH (09:31)
[2017-03-26 09:40] LABS: CHLORIDE,CL 101 mmol/L (98-110); SODIUM,NA 136 mmol/L (136-146)
--- NOTE | 2017-03-26 10:42 | PCM.PN ---
- General Info Date of Service: 03/26/17 - Patient Data Vitals - Most Recent: Last Vital Signs Temp 98 F 03/26/17 08:00 Pulse 83 03/26/17 08:00 Resp 18 03/26/17 08:00 BP 140/77 03/26/17 08:00 Pulse Ox 93 L 03/26/17 08:00 Weight - Most Recent: 81.692 kg I&O - Last 24 Hours: Intake & Output 03/25/17 03/26/17 03/26/17 22:59 06:59 14:59 Intake Total 3184 950 999 Output Total 2300 2500 Balance 884 -1550 999 Lab Results Last 24 Hours: Laboratory Results - last 24 hr 03/25/17 03/25/17 03/25/17 Range/Units 11:42 13:07 17:09 WBC (4.0-11.0) K/uL RBC (4.30-5.90) M/uL Hgb (12.0-16.0) g/dL Hct (36.0-46.0) % MCV (80.0-98.0) fL MCH (27.0-32.0) pg MCHC (31.0-37.0) g/dL RDW Std Deviation (28.0-62.0) fl RDW Coeff of Greg (11.0-15.0) % Plt Count (150-400) K/uL MPV (7.40-12.00) fL Add Manual Diff Neutrophils % (Manual) (48.0-80.0) % Band Neutrophils % % Lymphocytes % (Manual) (16.0-40.0) % Monocytes % (Manual) (0.0-15.0) % Nucleated RBC % /100WBC Absolute Seg Neuts (1.4-5.7) Band Neutrophils # Lymphocytes # (Manual) (0.6-2.4) Monocytes # (Manual) (0.0-0.8) Nucleated RBCs # K/uL Lactate 5.1 H (0.20-2.00) mmol/L Sodium (136-146) mmol/L Potassium (3.5-5.1) mmol/L Chloride (98-110) mmol/L Carbon Dioxide (21-31) mmol/L BUN (6.0-23.0) mg/dL Creatinine (0.6-1.5) mg/dL Est Cr Clr Drug Dosing mL/min Estimated GFR (MDRD) ml/min Glucose (60-110) mg/dL POC Glucose 291 H 404 H (60-110) mg/dL Calcium (8.8-10.8) mg/dL 03/25/17 03/25/17 03/26/17 Range/Units 17:13 22:45 04:55 WBC (4.0-11.0) K/uL RBC (4.30-5.90) M/uL Hgb (12.0-16.0) g/dL Hct (36.0-46.0) % MCV (80.0-98.0) fL MCH (27.0-32.0) pg MCHC (31.0-37.0) g/dL RDW Std Deviation (28.0-62.0) fl RDW Coeff of Greg (11.0-15.0) % Plt Count (150-400) K/uL MPV (7.40-12.00) fL Add Manual Diff Neutrophils % (Manual) (48.0-80.0) % Band Neutrophils % % Lymphocytes % (Manual) (16.0-40.0) % Monocytes % (Manual) (0.0-15.0) % Nucleated RBC % /100WBC Absolute Seg Neuts (1.4-5.7) Band Neutrophils # Lymphocytes # (Manual) (0.6-2.4) Monocytes # (Manual) (0.0-0.8) Nucleated RBCs # K/uL Lactate 3.8 H 3.6 H 2.4 H (0.20-2.00) mmol/L Sodium (136-146) mmol/L Potassium (3.5-5.1) mmol/L Chloride (98-110) mmol/L Carbon Dioxide (21-31) mmol/L BUN (6.0-23.0) mg/dL Creatinine (0.6-1.5) mg/dL Est Cr Clr Drug Dosing mL/min Estimated GFR (MDRD) ml/min Glucose (60-110) mg/dL POC Glucose (60-110) mg/dL Calcium (8.8-10.8) mg/dL 03/26/17 03/26/17 03/26/17 Range/Units 06:23 09:02 09:02 WBC 21.44 H (4.0-11.0) K/uL RBC 3.86 L (4.30-5.90) M/uL Hgb 12.5 (12.0-16.0) g/dL Hct 37.1 (36.0-46.0) % MCV 96.1 (80.0-98.0) fL MCH 32.4 H (27.0-32.0) pg MCHC 33.7 (31.0-37.0) g/dL RDW Std Deviation 52.3 (28.0-62.0) fl RDW Coeff of Greg 15 (11.0-15.0) % Plt Count 225 (150-400) K/uL MPV 8.50 (7.40-12.00) fL Add Manual Diff YES Neutrophils % (Manual) 81 H (48.0-80.0) % Band Neutrophils % 13 % Lymphocytes % (Manual) 3 L (16.0-40.0) % Monocytes % (Manual) 3 (0.0-15.0) % Nucleated RBC % 0.0 /100WBC Absolute Seg Neuts 17.4 H (1.4-5.7) Band Neutrophils # 2.8 Lymphocytes # (Manual) 0.6 (0.6-2.4) Monocytes # (Manual) 0.6 (0.0-0.8) Nucleated RBCs # 0 K/uL Lactate 3.7 H (0.20-2.00) mmol/L Sodium (136-146) mmol/L Potassium (3.5-5.1) mmol/L Chloride (98-110) mmol/L Carbon Dioxide (21-31) mmol/L BUN (6.0-23.0) mg/dL Creatinine (0.6-1.5) mg/dL Est Cr Clr Drug Dosing mL/min Estimated GFR (MDRD) ml/min Glucose (60-110) mg/dL POC Glucose 219 H (60-110) mg/dL Calcium (8.8-10.8) mg/dL 03/26/17 Range/Units 09:02 WBC (4.0-11.0) K/uL RBC (4.30-5.90) M/uL Hgb (12.0-16.0) g/dL Hct (36.0-46.0) % MCV (80.0-98.0) fL MCH (27.0-32.0) pg MCHC (31.0-37.0) g/dL RDW Std Deviation (28.0-62.0) fl RDW Coeff of Greg (11.0-15.0) % Plt Count (150-400) K/uL MPV (7.40-12.00) fL Add Manual Diff Neutrophils % (Manual) (48.0-80.0) % Band Neutrophils % % Lymphocytes % (Manual) (16.0-40.0) % Monocytes % (Manual) (0.0-15.0) % Nucleated RBC % /100WBC Absolute Seg Neuts (1.4-5.7) Band Neutrophils # Lymphocytes # (Manual) (0.6-2.4) Monocytes # (Manual) (0.0-0.8) Nucleated RBCs # K/uL Lactate (0.20-2.00) mmol/L Sodium 136 (136-146) mmol/L Potassium 3.9 (3.5-5.1) mmol/L Chloride 101 (98-110) mmol/L Carbon Dioxide 26 (21-31) mmol/L BUN 12 (6.0-23.0) mg/dL Creatinine 0.7 (0.6-1.5) mg/dL Est Cr Clr Drug Dosing 68.29 mL/min Estimated GFR (MDRD) > 60.0 ml/min Glucose 346 H (60-110) mg/dL POC Glucose (60-110) mg/dL Calcium 9.2 (8.8-10.8) mg/dL Med Orders - Current: Current Medications Acetaminophen (Tylenol) 650 mg PO Q6H PRN PRN Reason: Pain Last Admin: 03/25/17 10:35 Dose: 650 mg Albuterol (Ventolin Hfa) 0 gm INH QID PRN PRN Reason: Shortness of Breath Albuterol/Ipratropium (Duoneb 3.0-0.5 Mg/3 Ml) 3 ml NEB Q6HRRT PRN PRN Reason: SOB/wheezing Last Admin: 03/25/17 19:08 Dose: 3 ml Duloxetine HCl (Cymbalta) 60 mg PO DAILY [facility] Last Admin: 03/26/17 09:16 Dose: 60 mg Sodium Chloride (Normal Saline) 1,000 mls @ 125 mls/hr IV ASDIRECTED [facility] Last Admin: 03/26/17 07:21 Dose: 125 mls/hr Levofloxacin/Dextrose 750 mg/ (Premix) 150 mls @ 100 mls/hr IV Q24H [facility] Last Admin: 03/25/17 22:02 Dose: 100 mls/hr Insulin Aspart (Novolog) 0 unit SUBCUT TIDAC [facility] PRN Reason: Protocol Last Admin: 03/26/17 07:16 Dose: 2 unit Levothyroxine Sodium (Levothyroxine) 125 mcg PO ACBREAKFAST [facility] Last Admin: 03/26/17 07:17 Dose: 125 mcg Methylprednisolone Sodium Succinate (Solu-Medrol) 125 mg IVPUSH Q6H [facility] Last Admin: 03/26/17 09:17 Dose: 125 mg Sodium Chloride (Saline Flush) 10 ml FLUSH ASDIRECTED PRN PRN Reason: Keep Vein Open Sodium Chloride (Saline Flush) 2.5 ml FLUSH ASDIRECTED PRN PRN Reason: Keep Vein Open Tiotropium [place] (Spiriva Handihaler) 18 mcg INH DAILY [facility] Last Admin: 03/26/17 09:31 Dose: 1 puff Venlafaxine HCl (Effexor) 37.5 mg PO DAILY [facility] Last Admin: 03/26/17 09:16 Dose: 37.5 mg Discontinued Medications Albuterol/Ipratropium (Duoneb 3.0-0.5 Mg/3 Ml) 3 ml NEB ONETIME ONE Stop: 03/24/17 15:07 Last Admin: 03/24/17 15:24 Dose: 3 ml Albuterol/Ipratropium (Duoneb 3.0-0.5 Mg/3 Ml) 3 ml NEB Q6HRRT [facility] Last Admin: 03/25/17 11:51 Dose: 3 ml Sodium Chloride (Normal Saline) 1,000 mls @ 999 mls/hr IV STAT ONE Stop: 03/24/17 16:06 Last Admin: 03/24/17 15:23 Dose: 999 mls/hr Sodium Chloride (Normal Saline) 1,000 mls @ 999 mls/hr IV .BOLUS ONE Stop: 03/24/17 23:42 Last Admin: 03/24/17 23:07 Dose: 999 mls/hr Sodium Chloride (Normal Saline) 1,000 mls @ 999 mls/hr IV .BOLUS ONE Stop: 03/25/17 06:26 Last Admin: 03/25/17 06:04 Dose: 999 mls/hr Insulin Aspart (Novolog) 8 unit SUBCUT ONETIME ONE Stop: 03/25/17 17:21 Last Admin: 03/25/17 17:48 Dose: 8 units Methylprednisolone Sodium Succinate (Solu-Medrol) 125 mg IVPUSH ONETIME ONE Stop: 03/24/17 15:07 Last Admin: 03/24/17 15:24 Dose: 125 mg - Problem List & Annotations (1) Acute asthma SNOMED Code(s): 370884670 Code(s): J45.909 - UNSPECIFIED ASTHMA, UNCOMPLICATED Status: Acute Current Visit: Yes (2) Influenza SNOMED Code(s): 8022437 Code(s): J11.1 - FLU DUE TO UNIDENTIFIED INFLUENZA VIRUS W OTH RESP MANIFEST Status: Acute Current Visit: Yes (3) Hypoxemia SNOMED Code(s): 425141950 Code(s): R09.02 - HYPOXEMIA Status: Acute Current Visit: No (4) Elevated lactic acid level SNOMED Code(s): 7512844 Code(s): R79.89 - OTHER SPECIFIED ABNORMAL FINDINGS OF BLOOD CHEMISTRY Status: Acute Current Visit: Yes - My Orders Last 24 Hours: My Active Orders 03/25/17 10:06 Acetaminophen [Tylenol] 650 mg PO Q6H PRN 03/25/17 13:35 Communication Order [RC] PRN Albuterol/Ipratropium [DuoNeb 3.0-0.5 MG/3 ML] 3 ml NEB Q6HRRT PRN 03/26/17 10:41 Ready for Discharge [RC] PER UNIT ROUTINE - Plan Plan:: 52 yo female admitted for asthma exacerbation. We will monitor overnight and treat with IV solumedrol and duonebs.
--- NOTE | 2017-03-26 10:42 | PCM.DCSUM1 ---
Discharge Summary - Hospital Course Brief History: 52 yo female with pmh of asthma who presented last week to the ED and screened positive for influenza A she was discharged home on prednisone tigist for asthma exacerbation. She reports that she has not felt any better and her shortness of breath has not improved. She has been taking her albuterol nebulizer but does not take inhaled steroids due to thrush despite aggressive mouth rising after use. She tried to get a clinic appointment so that she could get a doctor's note so that she could go back to work, but since there wasn't a clinic doctor available she went to the ED. In the ED she was noted to be satting 90% on 2 liters of oxygen via NC. Patient agreed for referral for observation. - Discharge Data Discharge Date: 03/26/17 Discharge Disposition: Home, Self-Care 01 Condition: Good - Discharge Diagnosis/Problem(s) (1) Acute asthma SNOMED Code(s): 896542128 ICD Code: J45.909 - UNSPECIFIED ASTHMA, UNCOMPLICATED Status: Acute Current Visit: Yes (2) Influenza SNOMED Code(s): 9854653 ICD Code: J11.1 - FLU DUE TO UNIDENTIFIED INFLUENZA VIRUS W OTH RESP MANIFEST Status: Acute Current Visit: Yes (3) Hypoxemia SNOMED Code(s): 172357708 ICD Code: R09.02 - HYPOXEMIA Status: Acute Current Visit: No (4) Elevated lactic acid level SNOMED Code(s): 7731147 ICD Code: R79.89 - OTHER SPECIFIED ABNORMAL FINDINGS OF BLOOD CHEMISTRY Status: Acute Current Visit: Yes - Patient Instructions Diet: Diabetic Diet Activity: As Tolerated Showering/Bathing: May Shower Notify Provider of: Fever, Increased Pain, Swelling and Redness, Drainage, Nausea and/or Vomiting - Discharge Plan Prescriptions/Med Rec: Levofloxacin [Levaquin] 750 mg PO DAILY #5 tab Prednisone [IJD: Prednisone] 10 - 40 mg PO DAILY #50 tab Home Medications: Home Meds Albuterol [Ventolin HFA] 2 puff INH QID PRN 07/22/13 [History] DULoxetine [Cymbalta] 60 mg PO DAILY 07/22/13 [History] metFORMIN [Glucophage XR] 1,000 mg PO BIDM 07/22/13 [History] Levothyroxine 125 mcg PO ACBREAKFAST 04/29/15 [History] Mometasone/Formoterol [Dulera 100-5 MCG] 2 puff INH BID 11/12/16 [History] Venlafaxine [Effexor] 37.5 mg PO DAILY 03/24/17 [History] Tiotropium [place] [Spiriva Respimat] 2 inh IH DAILY 03/25/17 [History] Levofloxacin [Levaquin] 750 mg PO DAILY #5 tab 03/26/17 [Rx] Prednisone [IJD: Prednisone] 10 - 40 mg PO DAILY #50 tab 03/26/17 [Rx] Referrals: PCP,None [Primary Care Provider] - (follow up with PCP 1 week) - Discharge Summary/Plan Comment DC Time >30 min.: No Discharge Summary/Plan Comment: Discharge Diagnoses: Acute asthma exacerbation Influenza Bronchitis Katelyn was admitted and treated with Solumedrol, Duonebs and Levaquin for acute asthma exacerbation and bronchitis. She was also given Levaquin. On admission, lactate noted to be elevated. This was monitored and she was given IVFs. Lactate remained elevated, but this is likely secondary to Duonebs and not to sepsis. She is no toxic appearing and she has improved. She was weaned off oxygen and is very eager to be discharged home today. She will be discharged home with 3 more days of Levaquin, longer taper of Prednisone and to continue all home inhalers and nebulizers as usual. She reports she has enough refills and home supply on nebulizers. Leukocytosis noted, but this again is likely secondary to IV Solumedrol. Will have patient remain off work until Friday. She is to return to clinic or ED if concerns should arise. She will have follow up arranged with PCP for 1 week. - General Info Date of Service: 03/26/17 Admission Dx/Problem (Free Text: Admission Diagnosis/Problem Admission Diagnosis/Problem Asthma Subjective Update: Feeling better today, very eager to be discharged home today. Intermittent SOB, but she feels she has improved some, still fatigued. No chest pain. Scant wheezing and cough. Functional Status: Reports: Pain Controlled, Tolerating Diet, Ambulating, Urinating - Review of Systems General: Reports: Fatigue. Denies: Fever HEENT: Reports: Sinus Congestion. Denies: Headaches, Sore Throat, Visual Changes Pulmonary: Reports: Shortness of Breath (intermittent), Cough (dry), Wheezing Cardiovascular: Reports: No Symptoms. Denies: Chest Pain Gastrointestinal: Reports: No Symptoms. Denies: Abdominal Pain, Nausea, Vomiting Genitourinary: Reports: No Symptoms. Denies: Dysuria, Frequency, Burning Neurological: Reports: No Symptoms Psychiatric: Reports: No Symptoms - Patient Data Vitals - Most Recent: Last Vital Signs Temp 98 F 03/26/17 08:00 Pulse 83 03/26/17 08:00 Resp 18 03/26/17 08:00 BP 140/77 03/26/17 08:00 Pulse Ox 93 L 03/26/17 08:00 Weight - Most Recent: 81.692 kg I&O - Last 24 hours: Intake & Output 03/25/17 03/26/17 03/26/17 22:59 06:59 14:59 Intake Total 3184 950 999 Output Total 2300 2500 Balance 884 -1550 999 Lab Results - Last 24 hrs: Laboratory Results - last 24 hr 03/25/17 03/25/17 03/25/17 Range/Units 11:42 13:07 17:09 WBC (4.0-11.0) K/uL RBC (4.30-5.90) M/uL Hgb (12.0-16.0) g/dL Hct (36.0-46.0) % MCV (80.0-98.0) fL MCH (27.0-32.0) pg MCHC (31.0-37.0) g/dL RDW Std Deviation (28.0-62.0) fl RDW Coeff of Greg (11.0-15.0) % Plt Count (150-400) K/uL MPV (7.40-12.00) fL Add Manual Diff Neutrophils % (Manual) (48.0-80.0) % Band Neutrophils % % Lymphocytes % (Manual) (16.0-40.0) % Monocytes % (Manual) (0.0-15.0) % Nucleated RBC % /100WBC Absolute Seg Neuts (1.4-5.7) Band Neutrophils # Lymphocytes # (Manual) (0.6-2.4) Monocytes # (Manual) (0.0-0.8) Nucleated RBCs # K/uL Lactate 5.1 H (0.20-2.00) mmol/L Sodium (136-146) mmol/L Potassium (3.5-5.1) mmol/L Chloride (98-110) mmol/L Carbon Dioxide (21-31) mmol/L BUN (6.0-23.0) mg/dL Creatinine (0.6-1.5) mg/dL Est Cr Clr Drug Dosing mL/min Estimated GFR (MDRD) ml/min Glucose (60-110) mg/dL POC Glucose 291 H 404 H (60-110) mg/dL Calcium (8.8-10.8) mg/dL 03/25/17 03/25/17 03/26/17 Range/Units 17:13 22:45 04:55 WBC (4.0-11.0) K/uL RBC (4.30-5.90) M/uL Hgb (12.0-16.0) g/dL Hct (36.0-46.0) % MCV (80.0-98.0) fL MCH (27.0-32.0) pg MCHC (31.0-37.0) g/dL RDW Std Deviation (28.0-62.0) fl RDW Coeff of Greg (11.0-15.0) % Plt Count (150-400) K/uL MPV (7.40-12.00) fL Add Manual Diff Neutrophils % (Manual) (48.0-80.0) % Band Neutrophils % % Lymphocytes % (Manual) (16.0-40.0) % Monocytes % (Manual) (0.0-15.0) % Nucleated RBC % /100WBC Absolute Seg Neuts (1.4-5.7) Band Neutrophils # Lymphocytes # (Manual) (0.6-2.4) Monocytes # (Manual) (0.0-0.8) Nucleated RBCs # K/uL Lactate 3.8 H 3.6 H 2.4 H (0.20-2.00) mmol/L Sodium (136-146) mmol/L Potassium (3.5-5.1) mmol/L Chloride (98-110) mmol/L Carbon Dioxide (21-31) mmol/L BUN (6.0-23.0) mg/dL Creatinine (0.6-1.5) mg/dL Est Cr Clr Drug Dosing mL/min Estimated GFR (MDRD) ml/min Glucose (60-110) mg/dL POC Glucose (60-110) mg/dL Calcium (8.8-10.8) mg/dL 03/26/17 03/26/17 03/26/17 Range/Units 06:23 09:02 09:02 WBC 21.44 H (4.0-11.0) K/uL RBC 3.86 L (4.30-5.90) M/uL Hgb 12.5 (12.0-16.0) g/dL Hct 37.1 (36.0-46.0) % MCV 96.1 (80.0-98.0) fL MCH 32.4 H (27.0-32.0) pg MCHC 33.7 (31.0-37.0) g/dL RDW Std Deviation 52.3 (28.0-62.0) fl RDW Coeff of Greg 15 (11.0-15.0) % Plt Count 225 (150-400) K/uL MPV 8.50 (7.40-12.00) fL Add Manual Diff YES Neutrophils % (Manual) 81 H (48.0-80.0) % Band Neutrophils % 13 % Lymphocytes % (Manual) 3 L (16.0-40.0) % Monocytes % (Manual) 3 (0.0-15.0) % Nucleated RBC % 0.0 /100WBC Absolute Seg Neuts 17.4 H (1.4-5.7) Band Neutrophils # 2.8 Lymphocytes # (Manual) 0.6 (0.6-2.4) Monocytes # (Manual) 0.6 (0.0-0.8) Nucleated RBCs # 0 K/uL Lactate 3.7 H (0.20-2.00) mmol/L Sodium (136-146) mmol/L Potassium (3.5-5.1) mmol/L Chloride (98-110) mmol/L Carbon Dioxide (21-31) mmol/L BUN (6.0-23.0) mg/dL Creatinine (0.6-1.5) mg/dL Est Cr Clr Drug Dosing mL/min Estimated GFR (MDRD) ml/min Glucose (60-110) mg/dL POC Glucose 219 H (60-110) mg/dL Calcium (8.8-10.8) mg/dL 03/26/17 Range/Units 09:02 WBC (4.0-11.0) K/uL RBC (4.30-5.90) M/uL Hgb (12.0-16.0) g/dL Hct (36.0-46.0) % MCV (80.0-98.0) fL MCH (27.0-32.0) pg MCHC (31.0-37.0) g/dL RDW Std Deviation (28.0-62.0) fl RDW Coeff of Greg (11.0-15.0) % Plt Count (150-400) K/uL MPV (7.40-12.00) fL Add Manual Diff Neutrophils % (Manual) (48.0-80.0) % Band Neutrophils % % Lymphocytes % (Manual) (16.0-40.0) % Monocytes % (Manual) (0.0-15.0) % Nucleated RBC % /100WBC Absolute Seg Neuts (1.4-5.7) Band Neutrophils # Lymphocytes # (Manual) (0.6-2.4) Monocytes # (Manual) (0.0-0.8) Nucleated RBCs # K/uL Lactate (0.20-2.00) mmol/L Sodium 136 (136-146) mmol/L Potassium 3.9 (3.5-5.1) mmol/L Chloride 101 (98-110) mmol/L Carbon Dioxide 26 (21-31) mmol/L BUN 12 (6.0-23.0) mg/dL Creatinine 0.7 (0.6-1.5) mg/dL Est Cr Clr Drug Dosing 68.29 mL/min Estimated GFR (MDRD) > 60.0 ml/min Glucose 346 H (60-110) mg/dL POC Glucose (60-110) mg/dL Calcium 9.2 (8.8-10.8) mg/dL Med Orders - Current: Current Medications Acetaminophen (Tylenol) 650 mg PO Q6H PRN PRN Reason: Pain Last Admin: 03/25/17 10:35 Dose: 650 mg Albuterol (Ventolin Hfa) 0 gm INH QID PRN PRN Reason: Shortness of Breath Albuterol/Ipratropium (Duoneb 3.0-0.5 Mg/3 Ml) 3 ml NEB Q6HRRT PRN PRN Reason: SOB/wheezing Last Admin: 03/25/17 19:08 Dose: 3 ml Duloxetine HCl (Cymbalta) 60 mg PO DAILY [facility] Last Admin: 03/26/17 09:16 Dose: 60 mg Sodium Chloride (Normal Saline) 1,000 mls @ 125 mls/hr IV ASDIRECTED [facility] Last Admin: 03/26/17 07:21 Dose: 125 mls/hr Levofloxacin/Dextrose 750 mg/ (Premix) 150 mls @ 100 mls/hr IV Q24H [facility] Last Admin: 03/25/17 22:02 Dose: 100 mls/hr Insulin Aspart (Novolog) 0 unit SUBCUT TIDAC [facility] PRN Reason: Protocol Last Admin: 03/26/17 07:16 Dose: 2 unit Levothyroxine Sodium (Levothyroxine) 125 mcg PO ACBREAKFAST [facility] Last Admin: 03/26/17 07:17 Dose: 125 mcg Methylprednisolone Sodium Succinate (Solu-Medrol) 125 mg IVPUSH Q6H [facility] Last Admin: 03/26/17 09:17 Dose: 125 mg Sodium Chloride (Saline Flush) 10 ml FLUSH ASDIRECTED PRN PRN Reason: Keep Vein Open Sodium Chloride (Saline Flush) 2.5 ml FLUSH ASDIRECTED PRN PRN Reason: Keep Vein Open Tiotropium [place] (Spiriva Handihaler) 18 mcg INH DAILY [facility] Last Admin: 03/26/17 09:31 Dose: 1 puff Venlafaxine HCl (Effexor) 37.5 mg PO DAILY [facility] Last Admin: 03/26/17 09:16 Dose: 37.5 mg Discontinued Medications Albuterol/Ipratropium (Duoneb 3.0-0.5 Mg/3 Ml) 3 ml NEB ONETIME ONE Stop: 03/24/17 15:07 Last Admin: 03/24/17 15:24 Dose: 3 ml Albuterol/Ipratropium (Duoneb 3.0-0.5 Mg/3 Ml) 3 ml NEB Q6HRRT [facility] Last Admin: 03/25/17 11:51 Dose: 3 ml Sodium Chloride (Normal Saline) 1,000 mls @ 999 mls/hr IV STAT ONE Stop: 03/24/17 16:06 Last Admin: 03/24/17 15:23 Dose: 999 mls/hr Sodium Chloride (Normal Saline) 1,000 mls @ 999 mls/hr IV .BOLUS ONE Stop: 03/24/17 23:42 Last Admin: 03/24/17 23:07 Dose: 999 mls/hr Sodium Chloride (Normal Saline) 1,000 mls @ 999 mls/hr IV .BOLUS ONE Stop: 03/25/17 06:26 Last Admin: 03/25/17 06:04 Dose: 999 mls/hr Insulin Aspart (Novolog) 8 unit SUBCUT ONETIME ONE Stop: 03/25/17 17:21 Last Admin: 03/25/17 17:48 Dose: 8 units Methylprednisolone Sodium Succinate (Solu-Medrol) 125 mg IVPUSH ONETIME ONE Stop: 03/24/17 15:07 Last Admin: 03/24/17 15:24 Dose: 125 mg - Exam Quality Assessment: Reports: DVT Prophylaxis. Denies: Supplemental Oxygen General: Reports: Alert, Oriented, Cooperative, No Acute Distress Neck: Reports: Supple Lungs: Reports: Clear to Auscultation, Normal Respiratory Effort, Wheezing ( scant expiratory wheezing heard) Cardiovascular: Reports: Regular Rate, Regular Rhythm GI/Abdominal Exam: Normal Bowel Sounds, Soft, Non-Tender, No Organomegaly, No Distention, No Abnormal Bruit, No Mass, Pelvis Stable Extremities: Normal Inspection, Normal Range of Motion, Non-Tender, No Pedal Edema, Normal Capillary Refill Neurological: Reports: No New Focal Deficit Psy/Mental Status: Reports: Alert, Normal Affect, Normal Mood *Q Meaningful Use (DIS) - VTE *Q VTE Criteria *Q: - Stroke *Q Stroke Criteria *Q: - AMI *Q AMI Criteria *Q:
[2017-03-26 12:19] VITALS: BP 142/95
== END 2017-03-26 12:30 | disposition home or self-care (01) ==
LOC: MW.ED 14:49 → MW.MS 16:29 → MW.ED 17:12
PROVIDERS: ADMIT Internal Medicine; ATTEND Internal Medicine
DX: J45.901 Unspecified asthma with (acute) exacerbation (principal); J11.1 Influenza due to unidentified influenza virus with other respiratory manifestations; R09.02 Hypoxemia; R79.89 Other specified abnormal findings of blood chemistry; J40 Bronchitis, not specified as acute or chronic; F32.9 Major depressive disorder, single episode, unspecified; E11.9 Type 2 diabetes mellitus without complications; E66.9 Obesity, unspecified; Z68.30 Body mass index [BMI] 30.0-30.9, adult; Z90.49 Acquired absence of other specified parts of digestive tract; Z79.899 Other long term (current) drug therapy; Z79.84 Long term (current) use of oral hypoglycemic drugs; Z88.6 Allergy status to analgesic agent; Z88.1 Allergy status to other antibiotic agents; Z88.5 Allergy status to narcotic agent; Z88.2 Allergy status to sulfonamides; Z90.710 Acquired absence of both cervix and uterus; Z87.891 Personal history of nicotine dependence
CPT/HCPCS: 36415; 71045; 80048; 80053; 82962; 83605; 84484; 85025; 87040; 93005; 94640; 94664; 96361; 96365; 96366; 96374; 96376; 99285; A9270; G0378; J1815; J1956; J2930; J7040; J7620

== ENCOUNTER 2018-03-21 19:14 | Emergency (ER) | payer BC, OTHER ==
[2018-03-21] MEDS ORDERED: Albuterol/Ipratropium 3.0-0.5 MG/3 ML Neb Soln NEB ONE (19:17)
[2018-03-21] MEDS ORDERED: methylPREDNISolone Sodium Succinate 125 MG/2 ML SDV IVPUSH ONE (19:19)
--- NOTE | 2018-03-21 19:22 | EDM.PDOC ---
ED HPI GENERAL MEDICAL PROBLEM - General Chief Complaint: Respiratory Problem Stated Complaint: PT HAS DIFFICULTY BREATHING Time Seen by Provider: 03/21/18 19:17 - History of Present Illness INITIAL COMMENTS - FREE TEXT/NARRATIVE: HISTORY AND PHYSICAL: History of present illness: Patient 53-year-old white female with history of COPD who recently started smoking again and presents with a concern of shortness of breath intermittent coughing worse last 24 hours she does use home nebulizer she does not use home oxygen on arrival here has a O2 saturation of 85% she denies chest pain nausea vomiting fever or chills she did receive an influenza immunization this year. Review of systems: As per history of present illness and below otherwise all systems reviewed and negative. Past medical history: As per history of present illness and as reviewed below otherwise noncontributory. Surgical history: As per history of present illness and as reviewed below otherwise noncontributory. Social history: No reported history of drug or alcohol abuse. Family history: As per history of present illness and as reviewed below otherwise noncontributory. Physical exam: HEENT: Atraumatic, normocephalic, pupils reactive, negative for conjunctival pallor or scleral icterus, mucous membranes moist, throat clear, neck supple, nontender, trachea midline. Lungs: Moderate distress diminished breath sounds slightly coarse rare wheezing , breath sounds equal bilaterally, chest nontender. Heart: S1S2, regular, negative for clicks, rubs, or JVD. Abdomen: Soft, nondistended, nontender. Negative for masses or hepatosplenomegaly. Negative for costovertebral tenderness. Pelvis: Stable nontender. Genitourinary: Deferred. Rectal: Deferred. Extremities: Atraumatic, negative for cords or calf pain. Neurovascular unremarkable. Neuro: Awake, alert, oriented. Cranial nerves II through XII unremarkable. Cerebellum unremarkable. Motor and sensory unremarkable throughout. Exam nonfocal. Diagnostics: CBC CMP chest x-ray EKG influenza screen blood culture 2 Therapeutics: Saline at 125 mL an hour oxygen as directed albuterol ipratropium nebulizer Solu -Medrol 125 mg IV Impression: #1 acute dyspnea #2 COPD with acute exacerbation #3 medical noncompliance Definitive disposition and diagnosis as appropriate pending reevaluation and review of above. - Related Data Allergies Allergy/AdvReac Type Severity Reaction Status Date / Time acetaminophen Allergy Abdominal Verified 01/19/19 19:19 [From Tylenol-Codeine #3] Pain ciprofloxacin [From Cipro] Allergy Renal Verified 03/21/18 19:19 Failure ciprofloxacin HCl Allergy Renal Verified 03/21/18 19:19 [From Cipro] Failure codeine phosphate Allergy Abdominal Verified 03/21/18 19:19 [From Tylenol-Codeine #3] Pain cyclobenzaprine Allergy Rash Verified 03/21/18 19:19 Sulfa (Sulfonamide Allergy Hives Verified 03/21/18 19:19 Antibiotics) Home Meds: Home Meds DULoxetine [Cymbalta] 60 mg PO DAILY 07/22/13 [History] metFORMIN [Glucophage XR] 1,000 mg PO BIDM 07/22/13 [History] Levothyroxine 125 mcg PO ACBREAKFAST 04/29/15 [History] levoFLOXacin [Levaquin] 750 mg PO DAILY #5 tab 03/26/17 [Rx] Past Medical History HEENT History: Reports: Impaired Vision Cardiovascular History: Reports: None Respiratory History: Reports: Asthma, Bronchitis, Recurrent, Pneumonia, Recurrent Other Respiratory History: pneumonia and bronchitis Gastrointestinal History: Reports: Cholelithiasis Genitourinary History: Reports: None VP PRODUCTION History: Reports: Other (See Below) Other VP PRODUCTION History: Cyst Musculoskeletal History: Reports: None Neurological History: Reports: None Psychiatric History: Reports: Depression Endocrine/Metabolic History: Reports: Diabetes, Type II, Obesity/BMI 30+ Hematologic History: Reports: None Immunologic History: Reports: None Oncologic (Cancer) History: Reports: None Dermatologic History: Reports: None - Infectious Disease History Infectious Disease History: Reports: Chicken Pox - Past Surgical History HEENT Surgical History: Reports: None Respiratory Surgical History: Reports: None GI Surgical History: Reports: Cholecystectomy, Colostomy Female Surgical History: Reports: Hysterectomy Endocrine Surgical History: Reports: None Musculoskeletal Surgical History: Reports: Other (See Below) Other Musculoskeletal Surgeries/Procedures:: Neck bone graft Social & Family History - Family History Family Medical History: Noncontributory - Caffeine Use Caffeine Use: Reports: Coffee ED ROS GENERAL - Review of Systems Review Of Systems: ROS reveals no pertinent complaints other than HPI. ED EXAM, GENERAL - Physical Exam Exam: See Below (See dictation) Course - Vital Signs Last Recorded V/S: Last Vital Signs Temp 37.2 C 03/21/18 20:33 Pulse 95 03/21/18 20:33 Resp 17 03/21/18 20:33 BP 121/74 03/21/18 20:33 Pulse Ox 95 03/21/18 20:33 - Orders/Labs/Meds Orders: Active Orders 24 hr Category Date Time Status EKG Documentation Completion [RC] STAT Care 03/21/18 19:17 Active RT Aerosol Therapy [RC] ASDIRECTED Care 03/21/18 19:18 Active CULTURE BLOOD [BC] Stat Lab 03/21/18 19:27 Results CULTURE BLOOD [BC] Stat Lab 03/21/18 19:40 Received Sodium Chloride 0.9% [Normal Saline] 1,000 ml Med 03/21/18 19:30 Active IV STAT Blood Culture x2 Reflex Set [OM.PC] Stat Oth 03/21/18 19:18 Ordered Medication Orders Sodium Chloride (Normal Saline) 1,000 mls @ 125 mls/hr IV STAT MELONY Last Admin: 03/21/18 19:37 Dose: 125 mls/hr Labs: Laboratory Tests 03/21/18 03/21/18 Range/Units 19:27 19:27 WBC 10.69 (4.0-11.0) K/uL RBC 4.87 (4.30-5.90) M/uL Hgb 15.6 (12.0-16.0) g/dL Hct 46.4 H (36.0-46.0) % MCV 95.3 (80.0-98.0) fL MCH 32.0 (27.0-32.0) pg MCHC 33.6 (31.0-37.0) g/dL RDW Std Deviation 53.6 (28.0-62.0) fl RDW Coeff of Greg 15 (11.0-15.0) % Plt Count 210 (150-400) K/uL MPV 8.90 (7.40-12.00) fL Neut % (Auto) 62.2 (48.0-80.0) % Lymph % (Auto) 19.1 (16.0-40.0) % Kings % (Auto) 13.1 (0.0-15.0) % Eos % (Auto) 4.8 (0.0-7.0) % Baso % (Auto) 0.8 (0.0-1.5) % Neut # (Auto) 6.7 H (1.4-5.7) K/uL Lymph # (Auto) 2.0 (0.6-2.4) K/uL Kings # (Auto) 1.4 H (0.0-0.8) K/uL Eos # (Auto) 0.5 (0.0-0.7) K/uL Baso # (Auto) 0.1 (0.0-0.1) K/uL Nucleated RBC % 0.0 /100WBC Nucleated RBCs # 0 K/uL Sodium 137 (136-145) mmol/L Potassium 4.5 (3.5-5.1) mmol/L Chloride 100 (98-107) mmol/L Carbon Dioxide 26.9 (21.0-32.0) mmol/L BUN 8 (7.0-18.0) mg/dL Creatinine 0.9 (0.6-1.0) mg/dL Est Cr Clr Drug Dosing 63.14 mL/min Estimated GFR (MDRD) > 60.0 ml/min Glucose 164 H (74-106) mg/dL Calcium 10.0 (8.5-10.1) mg/dL Total Bilirubin 0.4 (0.2-1.0) mg/dL AST 56 H (15-37) IU/L ALT 78 H (14-63) IU/L Alkaline Phosphatase 124 H (46-116) U/L Total Protein 8.7 H (6.4-8.2) g/dL Albumin 3.7 (3.4-5.0) g/dL Globulin 5.0 H (2.6-4.0) g/dL Albumin/Globulin Ratio 0.7 L (0.9-1.6) Meds: Medications Generic Name Dose Route Start Last Admin Trade Name Freq PRN Reason Stop Dose Admin Sodium Chloride 1,000 mls @ 125 mls/hr 03/21/18 19:30 03/21/18 19:37 Normal Saline IV 125 mls/hr STAT MELONY Administration Discontinued Medications Generic Name Dose Route Start Last Admin Trade Name Freq PRN Reason Stop Dose Admin Albuterol/Ipratropium 3 ml 03/21/18 19:17 03/21/18 19:26 Duoneb 3.0-0.5 Mg/3 Ml NEB 03/21/18 19:18 3 ml ONETIME ONE Administration Methylprednisolone Sodium Succinate 125 mg 03/21/18 19:19 03/21/18 19:37 Solu-Medrol IVPUSH 03/21/18 19:20 125 mg ONETIME ONE Administration Departure - Departure Time of Disposition: 21:42 Disposition: Refer to Observation Condition: Good Clinical Impression: Hypoxemia, COPD with acute exacerbation - Discharge Information Forms: ED Department Discharge - My Orders Last 24 Hours: My Active Orders 03/21/18 19:17 EKG Documentation Completion [RC] STAT 03/21/18 19:18 RT Aerosol Therapy [RC] ASDIRECTED Blood Culture x2 Reflex Set [OM.PC] Stat 03/21/18 19:27 CULTURE BLOOD [BC] Stat 03/21/18 19:30 Sodium Chloride 0.9% [Normal Saline] 1,000 ml IV STAT 03/21/18 19:40 CULTURE BLOOD [BC] Stat - Assessment/Plan Last 24 Hours: My Active Orders 03/21/18 19:17 EKG Documentation Completion [RC] STAT 03/21/18 19:18 RT Aerosol Therapy [RC] ASDIRECTED Blood Culture x2 Reflex Set [OM.PC] Stat 03/21/18 19:27 CULTURE BLOOD [BC] Stat 03/21/18 19:30 Sodium Chloride 0.9% [Normal Saline] 1,000 ml IV STAT 03/21/18 19:40 CULTURE BLOOD [BC] Stat
[2018-03-21] MEDS ORDERED: Sodium Chloride 0.9% 1,000 ML IV SCH (19:30)
[2018-03-21 20:25] LABS: CHLORIDE,CL 100 mmol/L (98-107); SODIUM,NA 137 mmol/L (136-145)
[2018-03-21 20:34] VITALS: BP 121/74
--- NOTE | 2018-03-21 20:48 | CR ---
INDICATION: Pain, shortness of breath TECHNIQUE: Portable chest one view. COMPARISON: None FINDINGS/IMPRESSION: Cardiomediastinal silhouette is within normal limits. Slight elevation of the right hemidiaphragm. No focal consolidation or pulmonary edema. No pleural effusions or pneumothorax. Dictated by Anu Sarkar MD @ 03/21/2018 8:47:05 PM Dictated by: Anu Sarkar MD @ 03/21/2018 20:47:16 (Electronically Signed)
== END 2018-03-21 21:50 | disposition left against medical advice (07) ==
LOC: MW.ED 19:14
DX: J44.1 Chronic obstructive pulmonary disease with (acute) exacerbation (principal); R09.02 Hypoxemia; F17.210 Nicotine dependence, cigarettes, uncomplicated; F32.9 Major depressive disorder, single episode, unspecified; Z88.8 Allergy status to other drugs, medicaments and biological substances; Z88.2 Allergy status to sulfonamides; Z79.899 Other long term (current) drug therapy
CPT/HCPCS: 36415; 71045; 80053; 85025; 87040; 87804; 94640; 96361; 96374; 99285; J2930; J7040; 93005; J7620-GY

== ENCOUNTER 2020-01-25 16:42 | Emergency (ER) | payer BC ==
[2020-01-25] MEDS ORDERED: Morphine 2 MG/ML SYRINGE IVPUSH ONE (17:13)
[2020-01-25 17:32] LABS: BLOOD UREA NITROGEN,BUN 12 mg/dL (7.0-18.0); CARBON DIOXIDE,CO2 27.4 mmol/L (21.0-32.0); CHLORIDE,CL 102 mmol/L (98-107); GLUCOSE RANDOM 208 mg/dL (74-106); POTASSIUM,K 4.3 mmol/L (3.5-5.1); SODIUM,NA 139 mmol/L (136-145)
--- NOTE | 2020-01-25 17:41 | EDM.PDOC ---
ED HPI GENERAL MEDICAL PROBLEM - General Chief Complaint: Chest Pain Stated Complaint: CHEST PAIN Time Seen by Provider: 01/25/20 16:51 - History of Present Illness INITIAL COMMENTS - FREE TEXT/NARRATIVE: CHIEF COMPLAINT(S): Chest pain HISTORY OF PRESENT ILLNESS: This is a 54-year-old woman with a past medical history of lupus, COPD, and diabetes mellitus who comes to the emergency department with a chief complaint of chest pain. The patient states that for approximately the whole afternoon she has been experiencing right-sided chest pain which she states is sharp and on the right side. She denies any radiation of this pain. She states that there was no associated diaphoresis nausea or vomiting. She states that she does have shortness of breath and cough but was diagnosed with Covid. She states the cough is nonproductive and she does not have any hemoptysis. She states that the right-sided chest pain is rated 7 out of 10, sharp, and worse when she leans to the right side or takes a deep breath. She denies any relieving symptoms. She states that she took ibuprofen prior to arrival. She denies any lower extremity edema, prior history of DVT or PE. She denies any other symptoms. REVIEW OF SYSTEMS: Constitutional: Denies fever, chills. Eyes: Denies eye pain Ears, Nose, Mouth, & Throat: Denies earache Cardiovascular: Positive for chest pain Respiratory: Positive for shortness of breath and nonproductive cough Gastrointestinal: Denies Nausea, vomiting, diarrhea, hematochezia. Genitourinary: Denies hematuria Skin:Denies a rash Neurological: Denies blurred vision Psychiatric: Denies depression PAST MEDICAL HISTORY: As per history of present illness and as reviewed below otherwise noncontributory. SURGICAL HISTORY: As per history of present illness and as reviewed below otherwise noncontributory. LMP: Menopausal SOCIAL HISTORY: As per history of present illness and as reviewed below otherwise noncontributory. FAMILY HISTORY: As per history of present illness and as reviewed below o therwise noncontributory. EXAMINATION OF ORGAN SYSTEMS/BODY AREAS: Constitutional: Blood pressure was 120/72, heart rate 96, respiratory rate 18 with an oxygen saturation 94% on room air. Temperature 36.9 General: Overall well-appearing woman who is in no acute distress Psychiatric: Appropriate mood and affect. Eyes: No scleral icterus or conjunctival erythema ENMT: Moist mucous membranes. No pharyngeal erythema Cardiovascular: Regular, rate, and rhythm. No gallops, murmurs, or rubs. Bilateral upper extremity pulses symmetric and intact. No peripheral edema. No JVD. Respiratory: Lungs clear to auscultation bilaterally. No wheezes, rales, or rhonchi. Gastrointestinal: Soft, non-tender, non-distended. Normoactive bowel sounds Genitourinary: No suprapubic tenderness Musculoskeletal: Normal range of motion. Skin: No lesions or abrasions. Neurological: Alert, GCS 15 MEDICAL DECISION MAKING AND COURSE IN THE ED WITH INTERPRETATION/REVIEW OF DIAGNOSTIC STUDIES: This is a 54-year-old woman with a past medical history of diabetes mellitus, lupus, and COPD who comes to the emergency department with right-sided chest pain in the setting that the patient has coronavirus. At this time differential includes ACS, pulmonary embolism, pneumonia. The patient overall appears well however she is borderline hypoxic therefore will undergo a cardiac work-up. EKG was obtained which did not reveal any signs of ischemia or change from prior. We will place the patient on cardiac monitoring and pulse oximetry. We will provide the patient with 2 mg of IV morphine for pain relief. Twelve-lead EKG interpreted by myself. Normal sinus rhythm at a rate of 96beats per minute. Right axis. AR interval is approximately 145 ms. QRS duration is 95ms. ST segments are normal without elevations or depressions. No Q waves present. Hypertrophy not noted. No changes demonstrated from prior EKG dated March 21, 2018. Interpretation: Normal sinus rhythm Laboratory: CBC is unremarkable. D-dimer is negative. CMP reveals hyperglycemia otherwise unremarkable. Troponin x1 is negative. The radiological images were viewed by myself along with reading the report from the radiologist. Chest x-ray does not reveal any acute cardiopulmonary process. On reevaluation I did discuss the results with the patient. I did discuss with her at this time that it is uncertain as to what is causing the patient's chest pain however it does appear that her work-up is negative. I discussed that this could be secondary to costochondritis given that she has coronavirus. I discussed the use of Tylenol and Motrin for pain relief. Also discussed the use of [id number] lidocaine. I discussed with her that if she were to have new worsening symptoms such as worsening chest pain, shortness of breath, or cough she need to return to the emergency department. We did offer a patient the incentive spirometer however she did not want to this. She expressed understanding and had no further questions. DISPOSITION: The patient was discharged home in stable condition. The patient will follow up with PCP within 1 week CONDITION: Fair PROCEDURES: None FINAL IMPRESSION(S)/DIAGNOSES: 1. Acute atypical chest pain 2. Acute coronavirus Ildefonso Sawyer M.D. right chest Pain Score (Numeric/FACES): 5 - Related Data Allergies Allergy/AdvReac Type Severity Reaction Status Date / Time acetaminophen Allergy Abdominal Verified 03/21/18 19:19 [From Tylenol-Codeine #3] Pain ciprofloxacin [From Cipro] Allergy Renal Verified 03/21/18 19:19 Failure ciprofloxacin HCl Allergy Renal Verified 03/21/18 19:19 [From Cipro] Failure codeine phosphate Allergy Abdominal Verified 03/21/18 19:19 [From Tylenol-Codeine #3] Pain cyclobenzaprine Allergy Rash Verified 03/21/18 19:19 metaxalone Allergy Other Verified 01/25/20 16:55 Sulfa (Sulfonamide Allergy Hives Verified 03/21/18 19:19 Antibiotics) Home Meds: Home Meds DULoxetine [Cymbalta] 90 mg PO DAILY 07/22/13 [History] Levothyroxine 125 mcg PO ACBREAKFAST 04/29/15 [History] Gabapentin [Neurontin] 3 tab PO TID 01/25/20 [History] Insulin Detemir [Levemir] 58 unit SUBCUT DAILY 01/25/20 [History] Meloxicam 15 mg PO DAILY 01/25/20 [History] Pioglitazone [Actos] 15 mg PO DAILY 01/25/20 [History] Past Medical History HEENT History: Reports: Impaired Vision Cardiovascular History: Reports: None Respiratory History: Reports: Asthma, Bronchitis, Recurrent, COPD, Pneumonia, Recurrent Other Respiratory History: pneumonia and bronchitis, emphysema Gastrointestinal History: Reports: Cholelithiasis Genitourinary History: Reports: None 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: Other (See Below) Other 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 History: Cyst Musculoskeletal History: Reports: None Other Musculoskeletal History: Lupus Neurological History: Reports: None Psychiatric History: Reports: Depression Endocrine/Metabolic History: Reports: Diabetes, Type II, Obesity/BMI 30+ Hematologic History: Reports: None Immunologic History: Reports: None Oncologic (Cancer) History: Reports: None Dermatologic History: Reports: None - Infectious Disease History Infectious Disease History: Reports: Chicken Pox, Novel Coronavirus - Past Surgical History HEENT Surgical History: Reports: None Cardiovascular Surgical History: Reports: None Respiratory Surgical History: Reports: None GI Surgical History: Reports: Cholecystectomy, Colostomy Other GI Surgeries/Procedures: laparascopy Female Surgical History: Reports: Hysterectomy Endocrine Surgical History: Reports: None Neurological Surgical History: Reports: None Musculoskeletal Surgical History: Reports: Other (See Below) Other Musculoskeletal Surgeries/Procedures:: Neck bone graft Social & Family History - Family History Family Medical History: No Pertinent Family History - Tobacco Use Tobacco Use Status *Q: Former Tobacco User Used Tobacco, but Quit: Yes Month/Year Tobacco Last Used: 2 years ago - Caffeine Use Caffeine Use: Reports: Coffee - Recreational Drug Use Recreational Drug Use: No ED ROS GENERAL - Review of Systems Review Of Systems: See Below ED EXAM, GENERAL - Physical Exam Exam: See Below Course - Vital Signs Last Recorded V/S: Last Vital Signs Temp 36.9 C 01/25/20 16:52 Pulse 88 01/25/20 18:04 Resp 18 01/25/20 18:04 BP 120/70 01/25/20 18:04 Pulse Ox 92 L 01/25/20 18:04 - Orders/Labs/Meds Labs: Laboratory Tests 01/25/20 01/25/20 01/25/20 Range/Units 16:47 16:47 16:47 WBC 9.51 (4.0-11.0) K/uL RBC 4.18 L (4.30-5.90) M/uL Hgb 12.9 (12.0-16.0) g/dL Hct 40.9 (36.0-46.0) % MCV 97.8 (80.0-98.0) fL MCH 30.9 (27.0-32.0) pg MCHC 31.5 (31.0-37.0) g/dL RDW Std Deviation 55.4 (28.0-62.0) fl RDW Coeff of Greg 15 (11.0-15.0) % Plt Count 300 (150-400) K/uL MPV 9.00 (7.40-12.00) fL Add Manual Diff YES Neutrophils % (Manual) 53 (48.0-80.0) % Band Neutrophils % 2 % Lymphocytes % (Manual) 31 (16.0-40.0) % Monocytes % (Manual) 9 (0.0-15.0) % Eosinophils % (Manual) 5 (0.0-7.0) % Nucleated RBC % 0.0 /100WBC Absolute Seg Neuts 5.0 (1.4-5.7) Band Neutrophils # 0.2 Lymphocytes # (Manual) 2.9 H (0.6-2.4) Monocytes # (Manual) 0.9 H (0.0-0.8) Eosinophils # (Manual) 0.5 (0.0-0.7) Nucleated RBCs # 0 K/uL D-Dimer, Quantitative 0.43 (0.0-0.50) mg/L FEU Sodium 139 (136-145) mmol/L Potassium 4.3 (3.5-5.1) mmol/L Chloride 102 (98-107) mmol/L Carbon Dioxide 27.4 (21.0-32.0) mmol/L BUN 12 (7.0-18.0) mg/dL Creatinine 0.9 (0.6-1.0) mg/dL Est Cr Clr Drug Dosing 54.55 mL/min Estimated GFR (MDRD) > 60.0 ml/min Glucose 208 H (74-106) mg/dL Calcium 9.3 (8.5-10.1) mg/dL Total Bilirubin 0.2 (0.2-1.0) mg/dL AST 25 (15-37) IU/L ALT 27 (14-63) IU/L Alkaline Phosphatase 130 H (46-116) U/L Troponin I < 0.050 (0.000-0.056) ng/mL Total Protein 7.3 (6.4-8.2) g/dL Albumin 3.0 L (3.4-5.0) g/dL Globulin 4.3 H (2.6-4.0) g/dL Albumin/Globulin Ratio 0.7 L (0.9-1.6) Meds: Medications Discontinued Medications Generic Name Dose Route Start Last Admin Trade Name Freq PRN Reason Stop Dose Admin Morphine Sulfate 2 mg 01/25/20 17:13 01/25/20 17:19 Morphine IVPUSH 01/25/20 17:14 2 mg ONETIME ONE Administration Departure - Departure Time of Disposition: 18:19 Disposition: Home, Self-Care 01 Condition: Fair Clinical Impression: Atypical chest pain, COVID-19, Costochondral pain - Discharge Information *PRESCRIPTION DRUG MONITORING PROGRAM REVIEWED*: No *COPY OF PRESCRIPTION DRUG MONITORING REPORT IN PATIENT МАРИНА: No Instructions: COVID-19 Frequently Asked Questions, Chest Wall Pain, [id number], Prevent the Spread of COVID-19 if You Are Sick - [facility] Referrals: PCP,None [Primary Care Provider] - Forms: ED Department Discharge Additional Instructions: The patient is informed of any results of their evaluation and diagnostic workup and all questions are answered. They are given discharge instructions and return precautions. The patient is stable for discharge. The patient states they understand and agree with the plan and that they will return if their symptoms get worse or if they have any new concerns. The following information is given to patients seen in the emergency department who are being discharged to home. This information is to outline your options for follow-up care. We provide all patients seen in our emergency department with a follow-up referral. The need for follow-up, as well as the timing and circumstances, are variable depending upon the specifics of your emergency department visit. If you don't have a primary care physician on staff, we will provide you with a referral. We always advise you to contact your personal physician following an emergency department visit to inform them of the circumstance of the visit and for follow-up with them and/or the need for any referrals to a consulting specialist. The emergency department will also refer you to a specialist when appropriate. This referral assures that you have the opportunity for follow-up care with a specialist. All of these measure are taken in an effort to provide you with optimal care, which includes your follow-up. Under all circumstances we always encourage you to contact your private physician who remains a resource for coordinating your care. When calling for follow-up care, please make the office aware that this follow-up is from your re cent emergency room visit. If for any reason you are refused follow-up, please contact the [facility] Emergency Department at and asked to speak to the emergency department charge nurse. Today your evaluated on an emergency basis. At this time you do have coronavirus however there is no evidence of bacterial pneumonia. I would continue using Tylenol and Motrin for pain relief. If you were to have worsening chest pain, shortness of breath please return to the emergency department. Please follow-up with her primary care physician within 1 to 2 days. [facility] [address] [place] [id number] [address] [address] Sepsis Event Note (ED) - Evaluation Sepsis Screening Result: No Definite Risk - Focused Exam Vital Signs: Vital Signs Temp Pulse Resp BP Pulse Ox 01/25/20 18:04 88 18 120/70 92 L 01/25/20 16:52 36.9 C 96 18 120/72 94 L
--- NOTE | 2020-01-25 17:46 | CR ---
INDICATION: CHEST PAIN TECHNIQUE: Chest 1 view. COMPARISON: 03/21/18 FINDINGS: Cardiovascular and mediastinum: Heart size and vasculature are normal in caliber and appearance. Mediastinum is within normal limits. Lungs and pleural space: Lungs are clear. No sign of infiltrate or mass. No sign of pleural effusion. No pneumothorax. Bones and soft tissues: No significant findings. IMPRESSION: Unremarkable chest. Dictated by: Ron Romano MD @ 01/25/2020 17:43:42 (Electronically Signed)
[2020-01-25 18:05] VITALS: BP 120/70; PULSE 88
== END 2020-01-25 18:33 | disposition home or self-care (01) ==
LOC: MW.ED 16:42
DX: U07.1 COVID-19 (principal); R07.89 Other chest pain; E11.9 Type 2 diabetes mellitus without complications; E66.9 Obesity, unspecified; J45.909 Unspecified asthma, uncomplicated; F32.9 Major depressive disorder, single episode, unspecified; R07.1 Chest pain on breathing; J44.9 Chronic obstructive pulmonary disease, unspecified; Z88.6 Allergy status to analgesic agent; Z88.1 Allergy status to other antibiotic agents; Z88.5 Allergy status to narcotic agent; Z88.2 Allergy status to sulfonamides; Z79.4 Long term (current) use of insulin; Z87.891 Personal history of nicotine dependence; Z68.34 Body mass index [BMI] 34.0-34.9, adult
CPT/HCPCS: 36415; 71045; 80053; 84484; 85025; 85379; 93005; 96374; 99285; J2270; 93010; 99283

== ENCOUNTER 2020-01-31 19:26 | Emergency (ER) | payer BC ==
[2020-01-31] MEDS ORDERED: Sodium Chloride 0.9% 2.5 ML Syringe FLUSH PRN (19:28)
[2020-01-31] MEDS ORDERED: Sodium Chloride 0.9% 10 ML Syringe FLUSH PRN (19:28)
--- NOTE | 2020-01-31 19:31 | EDM.PDOC ---
<Bert Faulkner - Last Filed: 02/01/20 06:05> ED HPI GENERAL MEDICAL PROBLEM - General Chief Complaint: Cardiovascular Problem Stated Complaint: LOW OXYGEN, CHEST PAIN Time Seen by Provider: 01/31/20 19:27 - Related Data Allergies Allergy/AdvReac Type Severity Reaction Status Date / Time acetaminophen Allergy Abdominal Verified 01/31/20 19:49 [From Tylenol-Codeine #3] Pain ciprofloxacin [From Cipro] Allergy Renal Verified 01/31/20 19:49 Failure ciprofloxacin HCl Allergy Renal Verified 01/31/20 19:49 [From Cipro] Failure codeine phosphate Allergy Abdominal Verified 01/31/20 19:49 [From Tylenol-Codeine #3] Pain cyclobenzaprine Allergy Rash Verified 01/31/20 19:49 metaxalone Allergy Other Verified 01/31/20 19:49 Sulfa (Sulfonamide Allergy Hives Verified 01/31/20 19:49 Antibiotics) Home Meds: Home Meds DULoxetine [Cymbalta] 90 mg PO DAILY 07/22/13 [History] Levothyroxine 125 mcg PO ACBREAKFAST 04/29/15 [History] Gabapentin [Neurontin] 3 tab PO TID 01/25/20 [History] Insulin Detemir [Levemir] 58 unit SUBCUT DAILY 01/25/20 [History] Meloxicam 15 mg PO DAILY 01/25/20 [History] Pioglitazone [Actos] 15 mg PO DAILY 01/25/20 [History] Departure - Departure Time of Disposition: 21:57 Disposition: Home, Self-Care 01 Condition: Good Clinical Impression: COVID-19 Instructions: COVID-19 Frequently Asked Questions Referrals: PCP,None [Primary Care Provider] - Forms: ED Department Discharge Additional Instructions: The following information is given to patients seen in the emergency department who are being discharged to home. This information is to outline your options for follow-up care. We provide all patients seen in our emergency department with a follow-up referral. The need for follow-up, as well as the timing and circumstances, are variable depending upon the specifics of your emergency department visit. If you don't have a primary care physician on staff, we will provide you with a referral. We always advise you to contact your personal physician following an emergency department visit to inform them of the circumstance of the visit and for follow-up with them and/or the need for any referrals to a consulting specialist. The emergency department will also refer you to a specialist when appropriate. This referral assures that you have the opportunity for follow-up care with a specialist. All of these measure are taken in an effort to provide you with optimal care, which includes your follow-up. Under all circumstances we always encourage you to contact your private physician who remains a resource for coordinating your care. When calling for follow-up care, please make the office aware that this follow-up is from your recent emergency room visit. If for any reason you are refused follow-up, please contact the [facility] Emergency Department at and asked to speak to the emergency department charge nurse. - Assessment/Plan Assessment:: Patient received in signout from Dr. Patel at [address] scan shows some changes related to Covid but is negative for PE or other complication patient comfortable going home return precautions discussed and understood. <Davis Patel - Last Filed: 02/01/20 06:54> ED HPI GENERAL MEDICAL PROBLEM - General Source of Information: Reports: Patient, Old Records History Limitations: Reports: No Limitations - History of Present Illness INITIAL COMMENTS - FREE TEXT/NARRATIVE: This is a very pleasant 54-year-old female with a past medical history of asthma and COVID-19, COPD, lupus, diabetes mellitus, and hypothyroidism presenting with chest pain and reportedly low oxygen levels at home. She was seen in our emergency department on 01/24 with chest pain and cough. She had mildly low oxygen saturations at that time of 92%. Her twelve-lead EKG was nonischemic, D-dimer was negative, troponin was negative. Chest x-ray was un remarkable. She was discharged home with a diagnosis of costochondritis. This evening she presents to the emergency department for evaluation of chest pain. She states that this pain feels similar to when she was in the emergency department on 01/24. She describes it as "sharp". Nothing makes it feel better or worse. It has moved over somewhat towards the middle of the chest compared to a couple of days ago but basically feels the same. It does radiate to the back only when she is coughing. She was also concerned that her oxygen levels at home were low. She noted that her room air oxygen levels were about 86% after she climbed the stairs. This was a little bit lower than usual for her. She decided to come to the ER for further evaluation. I present she denies any shortness of breath, does report that she felt feverish earlier but did not check her temperature. Denies any abdominal pain, back pain at rest, headache, neck pain, nausea, vomiting, diarrhea. Patient denies history of venous thromboembolism, lower extremity pain or swelling, hemoptysis, recent surgery or immobilization or long travel, history of active malignancy, or hormonal medication/product usage. ROS: A 10-point review of systems was negative, except as noted in the HPI (or in the ROS section of this note). Past medical history: Reviewed, no additional pertinent history. Surgical history: Reviewed in system, no additional pertinent history. Social history: Reviewed in system, no additional pertinent history. Family history: Reviewed in system, no additional pertinent history. PHYSICAL EXAM Vital signs reviewed. Nursing notes reviewed. Constitutional: Awake, alert, non-distressed. Head: Normocephalic, atraumatic. Eyes: EOMI, conjunctiva normal, no discharge, no scleral icterus. Ears, Nose, Throat: External ears and nose normal, moist oral mucosa. Cardiovascular: 2+ radial pulses bilaterally, capillary refill less than 2 seconds. No lower extremity edema. Pulmonary: normal work of breathing, no accessory muscle use. Abdomen/GI: Soft, nontender, nondistended, no guarding or rigidity, no masses. Musculoskeletal: No deformities. Integumentary: Appropriate color for ethnicity, warm, dry, no pallor or jaundice, no rash. Neurologic: Alert, answering questions appropriately, normal speech, no facial droop, moving all extremities well. Psychiatric: Appropriate mood and affect, normal thought process. This patient was seen and evaluated during the 2019 SARS-CoV-2 novel coronavirus pandemic period. Community viral transmission is ongoing at time of this encounter and the emergency department is operating under pandemic response procedures. Chest Pain Score (Numeric/FACES): 3 Past Medical History HEENT History: Reports: Impaired Vision Cardiovascular History: Reports: None Respiratory History: Reports: Asthma, Bronchitis, Recurrent, COPD, Pneumonia, Recurrent Other Respiratory History: pneumonia and bronchitis, emphysema Gastrointestinal History: Reports: Cholelithiasis Genitourinary History: Reports: None WAVE SOLDER OFFBEARER History: Reports: Other (See Below) Other WAVE SOLDER OFFBEARER History: Cyst Musculoskeletal History: Reports: None Other Musculoskeletal History: Lupus Neurological History: Reports: None Psychiatric History: Reports: Depression Endocrine/Metabolic History: Reports: Diabetes, Type II, Obesity/BMI 30+ Hematologic History: Reports: None Immunologic History: Reports: None Oncologic (Cancer) History: Reports: None Dermatologic History: Reports: None - Infectious Disease History Infectious Disease History: Reports: Chicken Pox, Novel Coronavirus - Past Surgical History HEENT Surgical History: Reports: None Cardiovascular Surgical History: Reports: None Respiratory Surgical History: Reports: None GI Surgical History: Reports: Cholecystectomy, Colostomy Other GI Surgeries/Procedures: laparascopy Female Surgical History: Reports: Hysterectomy Endocrine Surgical History: Reports: None Neurological Surgical History: Reports: None Musculoskeletal Surgical History: Reports: Other (See Below) Other Musculoskeletal Surgeries/Procedures:: Neck bone graft Social & Family History - Family History Family Medical History: No Pertinent Family History - Caffeine Use Caffeine Use: Reports: Coffee ED ROS GENERAL - Review of Systems Review Of Systems: See Below ED EXAM, GENERAL - Physical Exam Exam: See Below #1 Interpretation EKG Interpretation Comments: 12-Lead ECG Interpretation Acquired: 7:43 PM Rhythm: Sinus rhythm Rate: 71 bpm Magee: Normal Intervals: Normal Ectopy: None RV Strain: No obvious RV strain pattern. ST Segments/T-Waves: No notable changes Acute Ischemic Changes: None apparent Interpretation: No STEMI Course - Vital Signs Text/Narrative:: 54-year-old female presenting with several days of chest pain and concern for low oxygen levels. Patient [hemodynamically stable, afebrile], well-appearing, looks nontoxic. Differential diagnosis includes but is not limited to: COVID-19 pneumonia, ACS, pulmonary embolism, aortic dissection, acute systolic heart failure, pneumonia, pneumothorax, pericardial effusion, pleural effusion, pericarditis, endocarditis, esophageal rupture, GERD, drug-induced chest pain, chest wall pain, and many others. Twelve-lead EKG looks nonischemic. CBC shows normal cell lines. Normal electrolytes and renal function. Glucose 123, normal carbon dioxide. Alkaline phosphatase 121, BUN 19, negative troponin with several days of constant chest discomfort. Off oxygen, resting oxygen saturations are 95 to 100% which is very good for a patient with COPD. We ambulated the patient and her oxygen saturations dipped to 83% briefly but then quickly recovered to the mid 90s when she was sat back down in her room. CT pulmonary angiogram is pending at shift change, I reviewed the two-view chest x-ray series showing no focal infiltrates, no pneumothorax, normal tracheal alignment. Patient remained in the emergency department through the end of my shift, signed out to my colleague Dr. Faulkner, refer to his note for the disposit ion. Last Recorded V/S: Last Vital Signs Temp 36.8 C 01/31/20 22:30 Pulse 67 01/31/20 22:30 Resp 16 01/31/20 22:30 BP 112/57 L 01/31/20 22:30 Pulse Ox 94 L 01/31/20 22:30 - Orders/Labs/Meds Orders: Active Orders 24 hr Category Date Time Status Saline Lock Insert [OM.PC] Stat Oth 01/31/20 19:28 Ordered Labs: Laboratory Tests 01/31/20 01/31/20 Range/Units 19:40 19:40 WBC 7.94 (4.0-11.0) K/uL RBC 4.11 L (4.30-5.90) M/uL Hgb 12.7 (12.0-16.0) g/dL Hct 40.3 (36.0-46.0) % MCV 98.1 H (80.0-98.0) fL MCH 30.9 (27.0-32.0) pg MCHC 31.5 (31.0-37.0) g/dL RDW Std Deviation 56.6 (28.0-62.0) fl RDW Coeff of Greg 16 H (11.0-15.0) % Plt Count 338 (150-400) K/uL MPV 8.50 (7.40-12.00) fL Neut % (Auto) 61.5 (48.0-80.0) % Lymph % (Auto) 19.8 (16.0-40.0) % Haakon % (Auto) 13.0 (0.0-15.0) % Eos % (Auto) 5.2 (0.0-7.0) % Baso % (Auto) 0.5 (0.0-1.5) % Neut # (Auto) 4.9 (1.4-5.7) K/uL Lymph # (Auto) 1.6 (0.6-2.4) K/uL Haakon # (Auto) 1.0 H (0.0-0.8) K/uL Eos # (Auto) 0.4 (0.0-0.7) K/uL Baso # (Auto) 0.0 (0.0-0.1) K/uL Nucleated RBC % 0.0 /100WBC Nucleated RBCs # 0 K/uL Sodium 140 (136-145) mmol/L Potassium 4.1 (3.5-5.1) mmol/L Chloride 104 (98-107) mmol/L Carbon Dioxide 30.4 (21.0-32.0) mmol/L BUN 19 H (7.0-18.0) mg/dL Creatinine 1.0 (0.6-1.0) mg/dL Est Cr Clr Drug Dosing 49.09 mL/min Estimated GFR (MDRD) 58.0 ml/min Glucose 123 H (74-106) mg/dL Calcium 9.1 (8.5-10.1) mg/dL Total Bilirubin 0.3 (0.2-1.0) mg/dL AST 27 (15-37) IU/L ALT 28 (14-63) IU/L Alkaline Phosphatase 121 H (46-116) U/L Troponin I < 0.050 (0.000-0.056) ng/mL Total Protein 7.8 (6.4-8.2) g/dL Albumin 3.2 L (3.4-5.0) g/dL Globulin 4.6 H (2.6-4.0) g/dL Albumin/Globulin Ratio 0.7 L (0.9-1.6) Meds: Medications Discontinued Medications Generic Name Dose Route Start Last Admin Trade Name Freq PRN Reason Stop Dose Admin Acetaminophen 1,000 mg 01/31/20 19:46 01/31/20 19:59 Tylenol Extra Strength PO 01/31/20 19:47 1,000 mg ONETIME ONE Administration Iopamidol 75 ml 01/31/20 21:02 01/31/20 21:03 Isovue-370 (76%) IVPUSH 01/31/20 21:03 75 ml ONETIME STA Administration Sodium Chloride 10 ml 01/31/20 19:28 01/31/20 20:00 Saline Flush FLUSH 10 ml ASDIRECTED PRN Administration Keep Vein Open Sodium Chloride 2.5 ml 01/31/20 19:28 01/31/20 19:59 Saline Flush FLUSH 2.5 ml ASDIRECTED PRN Administration Keep Vein Open Sepsis Event Note (ED) - Focused Exam Vital Signs: Vital Signs Temp Pulse Resp BP Pulse Ox 01/31/20 22:30 36.8 C 67 16 112/57 L 94 L 01/31/20 21:06 66 111/68 97 01/31/20 20:05 71 20 125/62 94 L 01/31/20 19:46 36.8 C 82 18 139/59 L 89 L - My Orders Last 24 Hours: My Active Orders 01/31/20 19:28 Saline Lock Insert [OM.PC] Stat - Assessment/Plan Last 24 Hours: My Active Orders 01/31/20 19:28 Saline Lock Insert [OM.PC] Stat
[2020-01-31] MEDS ORDERED: Acetaminophen 500 MG Tab PO ONE (19:46)
[2020-01-31 20:13] LABS: BLOOD UREA NITROGEN,BUN 19 mg/dL (7.0-18.0); CARBON DIOXIDE,CO2 30.4 mmol/L (21.0-32.0); CHLORIDE,CL 104 mmol/L (98-107); GLUCOSE RANDOM 123 mg/dL (74-106); POTASSIUM,K 4.1 mmol/L (3.5-5.1); SODIUM,NA 140 mmol/L (136-145)
--- NOTE | 2020-01-31 20:58 | CR ---
INDICATION: Chest pain COMPARISON: Single view from 01/25/2020 FINDINGS: PA and lateral views of the chest were obtained. There are new subtle right perihilar and left lateral basilar infiltrates. While nonspecific, these could be from early COVID-19 infection. The rest of the chest is clear. There is no sign of any pleural effusion. The heart remains normal in size. The mediastinum is normal in appearance. Again seen is a metallic plate and anchoring screws from anterior cervical fusion. IMPRESSION: New subtle right perihilar and left lateral basilar infiltrates. While nonspecific, this could represent early COVID-19 infection. Dictated by Jones Servin MD @ Jan 31 2020 8:55PM Signed by Dr. Jones Servin @ Jan 31 2020 8:57PM
[2020-01-31] MEDS ORDERED: Iopamidol 755 Mg/ML 100 ML Bottle IVPUSH STA (21:02)
--- NOTE | 2020-01-31 21:29 | CT ---
INDICATION: Chest pain, COVID positive, shortness of breath, history of lupus TECHNIQUE: CT chest pulmonary PE protocol acquired with 75 cc Isovue 370 IV contrast. COMPARISON: Chest radiograph from earlier today, chest CT February 10, 2012 FINDINGS: Cardiovascular structures: Normal vascular enhancement of the pulmonary arteries, no sign of pulmonary embolism. Heart size is normal. No sign of aneurysm in the thoracic aorta. Mediastinum and gilda: No mass or adenopathy. Lungs: Very faint ground-glass opacities in both lungs. Partially calcified 6 mm granuloma in the left upper lobe. Dependent atelectasis at both lung bases. Pleura and pericardium: No effusions. Chest wall and axilla: No mass or adenopathy. Upper abdomen: Status post cholecystectomy. Bones: No significant findings. IMPRESSION: No pulmonary embolism. Very faint ground-glass opacities in both lungs concerning for infection, including COVID-19. Status post cholecystectomy. Please note that all CT scans at this facility use dose modulation, iterative reconstruction, and/or weight-based dosing when appropriate to reduce radiation dose to as low as reasonably achievable. Dictated by Suzanna Pérez MD @ Jan 31 2020 9:28PM Signed by Dr. Suzanna Pérez @ Jan 31 2020 9:29PM
[2020-01-31 22:49] VITALS: BP 112/57; PULSE 67
== END 2020-01-31 22:31 | disposition home or self-care (01) ==
LOC: MW.ED 19:26
DX: U07.1 COVID-19 (principal); F32.9 Major depressive disorder, single episode, unspecified; E11.9 Type 2 diabetes mellitus without complications; J44.9 Chronic obstructive pulmonary disease, unspecified; E03.9 Hypothyroidism, unspecified; E66.9 Obesity, unspecified; Z68.35 Body mass index [BMI] 35.0-35.9, adult; M32.9 Systemic lupus erythematosus, unspecified; Z88.6 Allergy status to analgesic agent; Z88.1 Allergy status to other antibiotic agents; Z88.5 Allergy status to narcotic agent; Z88.2 Allergy status to sulfonamides; Z79.4 Long term (current) use of insulin; Z79.899 Other long term (current) drug therapy; Z88.8 Allergy status to other drugs, medicaments and biological substances
CPT/HCPCS: 36415; 71046; 71275; 80053; 84484; 85025; 93005; 99285; A9270; Q9967; 93010; 99283

== ENCOUNTER 2020-09-16 10:10 | Inpatient (IN) | payer BC ==
--- NOTE | 2020-09-16 10:33 | EDM.PDOC ---
ED HPI GENERAL MEDICAL PROBLEM - General Chief Complaint: Respiratory Problem Stated Complaint: TROUBLE BREATHING Time Seen by Provider: 09/16/20 10:11 - Related Data Allergies Allergy/AdvReac Type Severity Reaction Status Date / Time acetaminophen Allergy Abdominal Verified 09/16/20 10:27 [From Tylenol-Codeine #3] Pain ciprofloxacin [From Cipro] Allergy Renal Verified 09/16/20 10:27 Failure ciprofloxacin HCl Allergy Renal Verified 09/16/20 10:27 [From Cipro] Failure codeine phosphate Allergy Abdominal Verified 09/16/20 10:27 [From Tylenol-Codeine #3] Pain cyclobenzaprine Allergy Rash Verified 09/16/20 10:27 metaxalone Allergy Other Verified 09/16/20 10:27 Sulfa (Sulfonamide Allergy Hives Verified 09/16/20 10:27 Antibiotics) Home Meds: Home Meds DULoxetine [Cymbalta] 90 mg PO DAILY 07/22/13 [History] Levothyroxine 125 mcg PO ACBREAKFAST 04/29/15 [History] Gabapentin [Neurontin] 3 tab PO TID 01/25/20 [History] Insulin Detemir [Levemir] 58 unit SUBCUT DAILY 01/25/20 [History] Meloxicam 15 mg PO DAILY 01/25/20 [History] Pioglitazone [Actos] 15 mg PO DAILY 01/25/20 [History] Past Medical History HEENT History: Reports: Impaired Vision Cardiovascular History: Reports: None Respiratory History: Reports: Asthma, Bronchitis, Recurrent, COPD, Pneumonia, Recurrent, Other (See Below) Other Respiratory History: Emphysema Gastrointestinal History: Reports: Cholelithiasis Genitourinary History: Reports: None WEB COORDINATOR History: Reports: Other (See Below) Other WEB COORDINATOR History: Cyst Musculoskeletal History: Reports: None Other Musculoskeletal History: Lupus Neurological History: Reports: None Psychiatric History: Reports: Depression Endocrine/Metabolic History: Reports: Diabetes, Type II, Obesity/BMI 30+ Hematologic History: Reports: None Immunologic History: Reports: None Oncologic (Cancer) History: Reports: None Dermatologic History: Reports: None - Infectious Disease History Infectious Disease History: Reports: Chicken Pox, Novel Coronavirus - Past Surgical History HEENT Surgical History: Reports: None Cardiovascular Surgical History: Reports: None Respiratory Surgical History: Reports: None GI Surgical History: Reports: Cholecystectomy, Colostomy Other GI Surgeries/Procedures: laparascopy Female Surgical History: Reports: Hysterectomy Endocrine Surgical History: Reports: None Neurological Surgical History: Reports: None Musculoskeletal Surgical History: Reports: Other (See Below) Other Musculoskeletal Surgeries/Procedures:: Neck bone graft Social & Family History - Family History Family Medical History: No Pertinent Family History - Tobacco Use Tobacco Use Status *Q: Current Status Unknown - Caffeine Use Caffeine Use: Reports: Coffee - Recreational Drug Use Recreational Drug Use: No Course - Vital Signs Last Recorded V/S: Last Vital Signs Temp 36.2 C 09/16/20 10:27 Pulse 85 09/16/20 10:27 Resp 24 H 09/16/20 10:27 BP 134/58 L 09/16/20 10:27 Pulse Ox 92 L 09/16/20 10:27 Departure - Discharge Information Sepsis Event Note (ED) - Evaluation Sepsis Screening Result: No Definite Risk - Focused Exam Vital Signs: Vital Signs Temp Pulse Resp BP Pulse Ox 09/16/20 10:27 36.2 C 85 24 H 134/58 L 92 L
--- NOTE | 2020-09-16 10:34 | PCM.SN.2 ---
- Free Text/Narrative Note: EKG at 1014 showed a sinus rhythm with a heart rate 84 TN interval of 142 QT duration 454 [place] 99 Q wave in lead V1 with late transition R wave compared to 01/25/2020 no change impression no injury
[2020-09-16] MEDS ORDERED: Sodium Chloride 0.9% 10 ML Syringe FLUSH PRN (10:36)
[2020-09-16] MEDS ORDERED: Sodium Chloride 0.9% 2.5 ML Syringe FLUSH PRN (10:36)
[2020-09-16] MEDS ORDERED: methylPREDNISolone Sodium Succinate 125 MG/2 ML SDV IVPUSH ONE (10:37)
[2020-09-16] MEDS ORDERED: Albuterol/Ipratropium 3.0-0.5 MG/3 ML Neb Soln NEB ONE ×3 (10:37)
[2020-09-16 10:54] LABS: BLOOD UREA NITROGEN,BUN 10 mg/dL (7.0-18.0); CHLORIDE,CL 105 mmol/L (98-107); GLUCOSE RANDOM 90 mg/dL (74-106); SODIUM,NA 145 mmol/L (136-145)
--- NOTE | 2020-09-16 11:02 | EDM.PDOC ---
ED HPI GENERAL MEDICAL PROBLEM - General Chief Complaint: Respiratory Problem Stated Complaint: TROUBLE BREATHING Time Seen by Provider: 09/16/20 10:11 Source of Information: Reports: Patient History Limitations: Reports: No Limitations - History of Present Illness INITIAL COMMENTS - FREE TEXT/NARRATIVE: HISTORY AND PHYSICAL: History of present illness: Patient is a 55-year-old female, with a history of COPD on 3 L nasal cannula as needed at home (only uses at night and "occasional"), type 2 diabetes, and hypothyroidism, who presents emergency room today with concern of worsening shortness of breath since last night at about 10 PM. Patient states that she wears 3 L nasal cannula of oxygen at home as needed and states that she does this based off her symptoms. Patient states that she uses oxygen off and on throughout the week and this is not unusual for her. Patient states starting last night, she has increased her oxygen to 5 L and states that she is still feeling short of breath despite doing this. Patient states her shortness of breath is worse with exertion and improved when sitting but states that she still has shortness of breath at rest. Patient states she is also had an increase in productive cough. Patient states that she has chest tightness feeling like she cannot take a deep breath in but denies any chest pain. Patient denies any other symptoms or concerns. Patient denies fever, chills, chest pain. Denies headache, neck stiff ness, change in vision, syncope, or near syncope. Denies nausea, vomiting, abdominal pain, diarrhea, constipation, or dysuria. Has not noted any blood in urine or stool. Patient has been eating and drinking appropriately. Review of systems: As per history of present illness and below otherwise all systems reviewed and negative. Past medical history: As per history of present illness and as reviewed below otherwise noncontributory. Surgical history: As per history of present illness and as reviewed below otherwise noncontributory. Social history: See social history for further information Family history: As per history of present illness and as reviewed below otherwise noncontributory. Physical exam: General: Patient is alert, oriented, and in no acute distress. Patient sitting comfortably on exam table. Patient is on 5 L nasal cannula at bedside with a respiratory rate of 24, 92% oxygen, otherwise vitally stable and reviewed by me. HEENT: Atraumatic, normocephalic, pupils equal and reactive bilaterally, negative for conjunctival pallor or scleral icterus, mucous membranes moist, TMs normal bilaterally, throat clear, neck supple, nontender, trachea midline. No drooling or trismus noted. No meningeal signs. No hot potato voice noted. Lungs: Diffuse wheezing to auscultation throughout all lung lamar, breath sounds equal bilaterally, chest nontender. Patient speaking 3-4 words with breathlessness, increased RR, no stridor, using accessory muscle use with mild- moderate increased work of breathing. Heart: S1S2, regular rate and rhythm without overt murmur Abdomen: Soft, nondistended, nontender. Negative for masses or hepatosplenomegaly. Negative for costovertebral tenderness. Pelvis: Stable nontender. Genitourinary: Deferred. Rectal: Deferred. Skin: Intact, warm, dry. No lesions or rashes noted. Extremities: Atraumatic, negative for cords or calf pain. Neurovascular unre markable. Neuro: Awake, alert, oriented. Cranial nerves II through XII unremarkable. Cerebellum unremarkable. Motor and sensory unremarkable throughout. Exam nonfocal. Notes: Patient is a 55-year-old female, with a history of COPD, type 2 diabetes, and hypothyroidism, who presents emergency room today with concern of shortness of breath worse with exertion starting last night requiring increased home O2. Upon arrival to the ED, patient is on 5 L nasal cannula (patient uses 3 L nasal cannula at home as needed) and noted to be 92% on 5 L with increased respiratory rate at 24. Patient is able to speak 3-4 words but does appear breathless in between words. Patient does have diffuse wheezing throughout all lung lamar and using accessory muscles with mild to moderate increased work of breathing. We will start a continuous DuoNeb, provide steroids, and obtain cardiac evaluation with continual and close reassessment of patient. See Dr. Ramirez's dictation for specific EKG interpretation. However, normal sinus rhythm with a rate of 84 bpm. No STEMI. Mild derangements of CBC and CMP unremarkable. Troponin negative. D-dimer within normal limits. Chest x-ray shows stable radiographic findings without acute cardiopulmonary disease evident. Borderline heart enlargement. BNP within normal limits. Upon reevaluation of patient, she has improvement of her respiratory rate at approximately 18 to 20 breaths/min and is approximately 94% on 5 L. Patient is able to speak 4-5 word sentences with some breathlessness but this is improved from her initial presentation. Patient states that she feels a residual weakness and fatigue and feels that if she went home, she does not have the strength to properly give her nebulizers as she was not able to get 1 set up this morning due to symptoms. I did call and speak to Dr. Musa, hospitalist on-call, and thoroughly discussed patient's case. Will admit to observation on telemetry. Voices understanding and is agreeable to plan of care. Denies any further questions or concerns at this time. Patient was transferred to the hospital floor in stable condition under the care of Dr. Musa. Diagnostics: EKG, CBC, CMP, chest x-ray, troponin, D-dimer, COVID Therapeutics: DuoNeb x3, Solu-Medrol, saline lock, azithromycin Impression: COPD exacerbation, moderate-severe Plan: Admit to observation to Dr. Musa on telemetry Definitive disposition and diagnosis as appropriate pending reevaluation and review of above. - Related Data Allergies Allergy/AdvReac Type Severity Reaction Status Date / Time acetaminophen Allergy Abdominal Verified 09/16/20 10:27 [From Tylenol-Codeine #3] Pain ciprofloxacin [From Cipro] Allergy Renal Verified 09/16/20 10:27 Failure ciprofloxacin HCl Allergy Renal Verified 09/16/20 10:27 [From Cipro] Failure codeine phosphate Allergy Abdominal Verified 09/16/20 10:27 [From Tylenol-Codeine #3] Pain cyclobenzaprine Allergy Rash Verified 09/16/20 10:27 metaxalone Allergy Other Verified 09/16/20 10:27 Sulfa (Sulfonamide Allergy Hives Verified 09/16/20 10:27 Antibiotics) Home Meds: Home Meds DULoxetine [Cymbalta] 90 mg PO DAILY 07/22/13 [History] Levothyroxine 125 mcg PO ACBREAKFAST 04/29/15 [History] Gabapentin [Neurontin] 3 tab PO TID 01/25/20 [History] Insulin Detemir [Levemir] 58 unit SUBCUT DAILY 01/25/20 [History] Meloxicam 15 mg PO DAILY 01/25/20 [History] Pioglitazone [Actos] 15 mg PO DAILY 01/25/20 [History] Past Medical History HEENT History: Reports: Impaired Vision Cardiovascular History: Reports: None Respiratory History: Reports: Asthma, Bronchitis, Recurrent, COPD, Pneumonia, Recurrent, Other (See Below) Other Respiratory History: Emphysema Gastrointestinal History: Reports: Cholelithiasis Genitourinary History: Reports: None SLASH TRIMMER History: Reports: Other (See Below) Other SLASH TRIMMER History: Cyst Musculoskeletal History: Reports: None Other Musculoskeletal History: Lupus Neurological History: Reports: None Psychiatric History: Reports: Depression Endocrine/Metabolic History: Reports: Diabetes, Type II, Obesity/BMI 30+ Hematologic History: Reports: None Immunologic History: Reports: None Oncologic (Cancer) History: Reports: None Dermatologic History: Reports: None - Infectious Disease History Infectious Disease History: Reports: Chicken Pox, Novel Coronavirus - Past Surgical History HEENT Surgical History: Reports: None Cardiovascular Surgical History: Reports: None Respiratory Surgical History: Reports: None GI Surgical History: Reports: Cholecystectomy, Colostomy Other GI Surgeries/Procedures: laparascopy Female Surgical History: Reports: Hysterectomy Endocrine Surgical History: Reports: None Neurological Surgical History: Reports: None Musculoskeletal Surgical History: Reports: Other (See Below) Other Musculoskeletal Surgeries/Procedures:: Neck bone graft Social & Family History - Family History Family Medical History: No Pertinent Family History - Tobacco Use Tobacco Use Status *Q: Current Status Unknown - Caffeine Use Caffeine Use: Reports: Coffee - Recreational Drug Use Recreational Drug Use: No ED ROS GENERAL - Review of Systems Review Of Systems: Comprehensive ROS is negative, except as noted in HPI. ED EXAM, GENERAL - Physical Exam Exam: See Below (see dictation) Course - Vital Signs Last Recorded V/S: Last Vital Signs Temp 97.2 F 09/16/20 10:27 Pulse 77 09/16/20 13:46 Resp 19 09/16/20 13:46 BP 138/54 L 09/16/20 13:46 Pulse Ox 94 L 09/16/20 13:46 - Orders/Labs/Meds Orders: Active Orders 24 hr Category Date Time Status Cardiac Monitoring [RC] Q8H Care 09/16/20 10:36 Active EKG Documentation Completion [RC] STAT Care 09/16/20 10:36 Active RT Aerosol Therapy [RC] ASDIRECTED Care 09/16/20 10:37 Active RT Aerosol Therapy [RC] ASDIRECTED Care 09/16/20 10:37 Active RT Aerosol Therapy [RC] ASDIRECTED Care 09/16/20 10:37 Active Azithromycin [Zithromax] 500 mg Med 09/16/20 13:00 Active Sodium Chloride 0.9% [Normal Saline (AdvBag)] 250 ml IV ONETIME Sodium Chloride 0.9% [Saline Flush] Med 09/16/20 10:36 Active 10 ml FLUSH ASDIRECTED PRN Sodium Chloride 0.9% [Saline Flush] Med 09/16/20 10:36 Active 2.5 ml FLUSH ASDIRECTED PRN Saline Lock Insert [OM.PC] Stat Oth 09/16/20 10:36 Ordered Medication Orders Azithromycin 500 mg/ Sodium (Chloride) 250 mls @ 250 mls/hr IV ONETIME MELONY Last Admin: 09/16/20 13:40 Dose: 250 mls/hr Documented by: [email or web address] Sodium Chloride (Sodium Chloride 0.9% 2.5 Ml Syringe) 2.5 ml FLUSH ASDIRECTED PRN PRN Reason: Keep Vein Open Last Admin: 09/16/20 10:40 Dose: 2.5 ml Documented by: [id number] Sodium Chloride (Sodium Chloride 0.9% 10 Ml Syringe) 10 ml FLUSH ASDIRECTED PRN PRN Reason: Keep Vein Open Last Admin: 09/16/20 10:40 Dose: 10 ml Documented by: [id number] Labs: Laboratory Tests 09/16/20 09/16/20 09/16/20 Range/Units 10:18 10:18 10:18 WBC 9.95 (4.0-11.0) K/uL RBC 4.27 L (4.30-5.90) M/uL Hgb 13.3 (12.0-16.0) g/dL Hct 40.7 (36.0-46.0) % MCV 95.3 (80.0-98.0) fL MCH 31.1 (27.0-32.0) pg MCHC 32.7 (31.0-37.0) g/dL RDW Std Deviation 56.2 (28.0-62.0) fl RDW Coeff of Greg 16 H (11.0-15.0) % Plt Count 306 (150-400) K/uL MPV 8.50 (7.40-12.00) fL Neut % (Auto) 65.9 (48.0-80.0) % Lymph % (Auto) 18.1 (16.0-40.0) % [place] % (Auto) 11.5 (0.0-15.0) % Eos % (Auto) 3.9 (0.0-7.0) % Baso % (Auto) 0.6 (0.0-1.5) % Neut # (Auto) 6.6 H (1.4-5.7) K/uL Lymph # (Auto) 1.8 (0.6-2.4) K/uL [place] # (Auto) 1.1 H (0.0-0.8) K/uL Eos # (Auto) 0.4 (0.0-0.7) K/uL Baso # (Auto) 0.1 (0.0-0.1) K/uL Nucleated RBC % 0.0 /100WBC Nucleated RBCs # 0 K/uL D-Dimer, Quantitative (0.0-0.50) mg/L FEU Sodium 145 (136-145) mmol/L Potassium 4.0 (3.5-5.1) mmol/L Chloride 105 (98-107) mmol/L Carbon Dioxide 29.0 (21.0-32.0) mmol/L BUN 10 (7.0-18.0) mg/dL Creatinine 1.1 H (0.6-1.0) mg/dL Est Cr Clr Drug Dosing 44.17 mL/min Estimated GFR (MDRD) 51.8 ml/min Glucose 90 (74-106) mg/dL Calcium 9.0 (8.5-10.1) mg/dL Magnesium 1.9 (1.8-2.4) mg/dL Total Bilirubin 0.2 (0.2-1.0) mg/dL AST 21 (15-37) IU/L ALT 14 (14-63) IU/L Alkaline Phosphatase 84 (46-116) U/L Troponin I < 0.050 (0.000-0.056) ng/mL B-Natriuretic Peptide (<100) PG/ML Total Protein 8.1 (6.4-8.2) g/dL Albumin 3.4 (3.4-5.0) g/dL Globulin 4.7 H (2.6-4.0) g/dL Albumin/Globulin Ratio 0.7 L (0.9-1.6) 09/16/20 09/16/20 Range/Units 10:18 10:18 WBC (4.0-11.0) K/uL RBC (4.30-5.90) M/uL Hgb (12.0-16.0) g/dL Hct (36.0-46.0) % MCV (80.0-98.0) fL MCH (27.0-32.0) pg MCHC (31.0-37.0) g/dL RDW Std Deviation (28.0-62.0) fl RDW Coeff of Greg (11.0-15.0) % Plt Count (150-400) K/uL MPV (7.40-12.00) fL Neut % (Auto) (48.0-80.0) % Lymph % (Auto) (16.0-40.0) % [place] % (Auto) (0.0-15.0) % Eos % (Auto) (0.0-7.0) % Baso % (Auto) (0.0-1.5) % Neut # (Auto) (1.4-5.7) K/uL Lymph # (Auto) (0.6-2.4) K/uL [place] # (Auto) (0.0-0.8) K/uL Eos # (Auto) (0.0-0.7) K/uL Baso # (Auto) (0.0-0.1) K/uL Nucleated RBC % /100WBC Nucleated RBCs # K/uL D-Dimer, Quantitative 0.42 (0.0-0.50) mg/L FEU Sodium (136-145) mmol/L Potassium (3.5-5.1) mmol/L Chloride (98-107) mmol/L Carbon Dioxide (21.0-32.0) mmol/L BUN (7.0-18.0) mg/dL Creatinine (0.6-1.0) mg/dL Est Cr Clr Drug Dosing mL/min Estimated GFR (MDRD) ml/min Glucose (74-106) mg/dL Calcium (8.5-10.1) mg/dL Magnesium (1.8-2.4) mg/dL Total Bilirubin (0.2-1.0) mg/dL AST (15-37) IU/L ALT (14-63) IU/L Alkaline Phosphatase (46-116) U/L Troponin I (0.000-0.056) ng/mL B-Natriuretic Peptide 13 (<100) PG/ML Total Protein (6.4-8.2) g/dL Albumin (3.4-5.0) g/dL Globulin (2.6-4.0) g/dL Albumin/Globulin Ratio (0.9-1.6) Meds: Medications Generic Name Dose Route Start Last Admin Trade Name Freq PRN Reason Stop Dose Admin Azithromycin 500 mg/ Sodium 250 mls @ 250 mls/hr 09/16/20 13:00 09/16/20 13:40 Chloride IV 250 mls/hr ONETIME MELONY Administration Sodium Chloride 2.5 ml 09/16/20 10:36 09/16/20 10:40 Sodium Chloride 0.9% 2.5 Ml Syringe FLUSH 2.5 ml ASDIRECTED PRN Administration Keep Vein Open Sodium Chloride 10 ml 09/16/20 10:36 09/16/20 10:40 Sodium Chloride 0.9% 10 Ml Syringe FLUSH 10 ml ASDIRECTED PRN Administration Keep Vein Open Discontinued Medications Generic Name Dose Route Start Last Admin Trade Name Freq PRN Reason Stop Dose Admin Albuterol/Ipratropium 3 ml 09/16/20 10:37 09/16/20 10:41 Albuterol/Ipratropium 3.0-0.5 Mg/3 Ml Neb Soln NEB 09/16/20 10:38 3 ml ONETIME ONE Administration Albuterol/Ipratropium 3 ml 09/16/20 10:37 09/16/20 10:41 Albuterol/Ipratropium 3.0-0.5 Mg/3 Ml Neb Soln NEB 09/16/20 10:38 3 ml ONETIME ONE Administration Albuterol/Ipratropium 3 ml 09/16/20 10:37 09/16/20 10:41 Albuterol/Ipratropium 3.0-0.5 Mg/3 Ml Neb Soln NEB 09/16/20 10:38 3 ml ONETIME ONE Administration Methylprednisolone Sodium Succinate 125 mg 09/16/20 10:37 09/16/20 10:41 Methylprednisolone Sodium Succinate 125 Mg/2 Ml Sdv IVPUSH 09/16/20 10:38 125 mg ONETIME ONE Administration Departure - Departure Time of Disposition: 12:54 Disposition: Refer to Observation Clinical Impression: COPD exacerbation - Discharge Information Sepsis Event Note (ED) - Evaluation Sepsis Screening Result: No Definite Risk - Focused Exam Vital Signs: Vital Signs Temp Pulse Resp BP Pulse Ox 09/16/20 12:46 77 17 127/54 L 94 L 09/16/20 11:46 87 18 136/52 L 94 L 09/16/20 11:16 89 17 141/53 H 91 L 09/16/20 10:27 97.2 F 85 24 H 134/58 L 92 L - My Orders Last 24 Hours: My Active Orders 09/16/20 10:36 Cardiac Monitoring [RC] Q8H EKG Documentation Completion [RC] STAT Sodium Chloride 0.9% [Saline Flush] 10 ml FLUSH ASDIRECTED PRN Sodium Chloride 0.9% [Saline Flush] 2.5 ml FLUSH ASDIRECTED PRN Saline Lock Insert [OM.PC] Stat 09/16/20 10:37 RT Aerosol Therapy [RC] ASDIRECTED RT Aerosol Therapy [RC] ASDIRECTED RT Aerosol Therapy [RC] ASDIRECTED 09/16/20 13:00 Azithromycin [Zithromax] 500 mg Sodium Chloride 0.9% [Normal Saline (AdvBag)] 250 ml IV ONETIME - Assessment/Plan Last 24 Hours: My Active Orders 09/16/20 10:36 Cardiac Monitoring [RC] Q8H EKG Documentation Completion [RC] STAT Sodium Chloride 0.9% [Saline Flush] 10 ml FLUSH ASDIRECTED PRN Sodium Chloride 0.9% [Saline Flush] 2.5 ml FLUSH ASDIRECTED PRN Saline Lock Insert [OM.PC] Stat 09/16/20 10:37 RT Aerosol Therapy [RC] ASDIRECTED RT Aerosol Therapy [RC] ASDIRECTED RT Aerosol Therapy [RC] ASDIRECTED 09/16/20 13:00 Azithromycin [Zithromax] 500 mg Sodium Chloride 0.9% [Normal Saline (AdvBag)] 250 ml IV ONETIME
--- NOTE | 2020-09-16 11:59 | CR ---
INDICATION: Dyspnea, history of COPD TECHNIQUE: Chest 1 view. COMPARISON: 01/31/2020 FINDINGS: The heart size is stable and a borderline enlarged. Central vascular markings are within the normal range. Mild patchy chronic interstitial-type infiltrates are re-identified at both lung bases with no acute appearing infiltrate or overt congestive failure findings. There are no pleural effusions seen. A small bone island is re-identified in the left humeral head. IMPRESSION: Stable radiographic findings without acute cardiopulmonary disease evident. Dictated by Ron Paulino MD @ 09/16/2020 11:59:[address] Ron Paulino @ Sep 16 2020 11:59AM
[2020-09-16] MEDS ORDERED: Azithromycin 500 MG in Sodium Chloride 0.9% 250 ML IV SCH (13:00)
[2020-09-16] MEDS ORDERED: 50% Dextrose in Water 50 ML Syringe IVPUSH PRN (15:08)
[2020-09-16] MEDS ORDERED: Glucagon,Human Recombinant 1 MG Vial IM PRN (15:08)
[2020-09-16] MEDS ORDERED: Albuterol/Ipratropium 3.0-0.5 MG/3 ML Neb Soln NEB PRN ×2 (16:00→17:38)
[2020-09-16] MEDS: Insulin Aspart 100 Units/ML 3 ML Pen SUBCUT SCH (16:56)
[2020-09-16] MEDS: Albuterol/Ipratropium 3.0-0.5 MG/3 ML Neb Soln NEB SCH ×2 (17:36→23:08)
--- NOTE | 2020-09-16 17:44 | PCM.HP.2 ---
H&P History of Present Illness - General Date of Service: 09/16/20 Admit Problem/Dx: Admission Diagnosis/Problem Admission Diagnosis/Problem COPD, Moderate chronic obstructive pulmonary disease - History of Present Illness Initial Comments - Free Text/Narative: 55 yo female with pmh of COPD exacerbation who presents with several day history of shortness of breath, wheezing and productive cough. Patient is on home O2 at night but was requiring oxygen during the day. IN the ED she was noted to be requring 5L NC to keep sats above 90%. She was give soulemdrol, duonebs, and azithromycin with improvement in her symptoms. Bilateral Lower Leg Pain Score (Numeric/FACES): 4 - Related Data Allergies/Adverse Reactions: Allergies Allergy/AdvReac Type Severity Reaction Status Date / Time acetaminophen Allergy Abdominal Verified 09/16/20 10:27 [From Tylenol-Codeine #3] Pain ciprofloxacin [From Cipro] Allergy Renal Verified 09/16/20 10:27 Failure ciprofloxacin HCl Allergy Renal Verified 09/16/20 10:27 [From Cipro] Failure codeine phosphate Allergy Abdominal Verified 09/16/20 10:27 [From Tylenol-Codeine #3] Pain cyclobenzaprine Allergy Rash Verified 09/16/20 10:27 metaxalone Allergy Other Verified 09/16/20 10:27 Sulfa (Sulfonamide Allergy Hives Verified 09/16/20 10:27 Antibiotics) Home Medications: Home Meds Levothyroxine 0.137 mcg PO ACBREAKFAST 04/29/15 [History] Insulin Detemir [Levemir] 55 unit SUBCUT BEDTIME 01/25/20 [History] Pioglitazone [Actos] 15 mg PO DAILY 01/25/20 [History] Albuterol Sulfate [Albuterol Sulfate HFA] 1 puff INH Q4HR PRN 09/16/20 [History] Desvenlafaxine Succinate [Pristiq] 09/16/20 [History] Diclofenac Sodium [Voltaren] 1 tab PO TID 09/16/20 [History] Fluticasone/Umeclidin/Vilanter [Trelegy Ellipta 100-62.5-25] 1 puff INH DAILY 09/16/20 [History] Gabapentin [Neurontin] 600 mg PO TID 09/17/20 [History] Past Medical History HEENT History: Reports: Impaired Vision Cardiovascular History: Reports: None Respiratory History: Reports: Asthma, Bronchitis, Recurrent, COPD, Pneumonia, Recurrent, Other (See Below) Other Respiratory History: Emphysema Gastrointestinal History: Reports: Cholelithiasis Genitourinary History: Reports: None [employer] History: Reports: Other (See Below) Other OB/BYN History: Cyst Musculoskeletal History: Reports: None Other Musculoskeletal History: Lupus Neurological History: Reports: None Psychiatric History: Reports: Depression Endocrine/Metabolic History: Reports: Diabetes, Type II, Obesity/BMI 30+ Hematologic History: Reports: None Immunologic History: Reports: None Oncologic (Cancer) History: Reports: None Dermatologic History: Reports: None - Infectious Disease History Infectious Disease History: Reports: Chicken Pox, Novel Coronavirus - Past Surgical History HEENT Surgical History: Reports: None Cardiovascular Surgical History: Reports: None Respiratory Surgical History: Reports: None GI Surgical History: Reports: Cholecystectomy, Colostomy Other GI Surgeries/Procedures: laparascopy Female Surgical History: Reports: Hysterectomy Endocrine Surgical History: Reports: None Neurological Surgical History: Reports: None Musculoskeletal Surgical History: Reports: Other (See Below) Other Musculoskeletal Surgeries/Procedures:: Neck bone graft Social & Family History - Family History Family Medical History: No Pertinent Family History - Tobacco Use Tobacco Use Status *Q: Former Tobacco User Years of Tobacco use: 31 Packs/Tins Daily: 0 Used Tobacco, but Quit: Yes Month/Year Tobacco Last Used: March 2018 Second Hand Smoke Exposure: No - Caffeine Use Caffeine Use: Reports: Coffee, Soda - Recreational Drug Use Recreational Drug Use: No Other Recreational Drug Type: Medical Marijuana H&P Review of Systems - Review of Systems: Review Of Systems: Comprehensive ROS is negative, except as noted in HPI. Exam - Exam Exam: See Below - Vital Signs Vital Signs: Last Vital Signs Temp 36.8 C 09/16/20 16:00 Pulse 77 09/16/20 16:00 Resp 20 09/16/20 16:00 BP 128/68 09/16/20 16:00 Pulse Ox 92 L 09/16/20 16:00 Weight: 94.3 kg - Exam General: Alert, Oriented HEENT: Mucosa Moist & [place] Neck: Supple Lungs: Decreased Breath Sounds, Wheezing Cardiovascular: Regular Rate, Regular Rhythm GI/Abdominal Exam: Soft, Non-Tender Extremities: Non-Tender, No Pedal Edema Skin: Warm, Dry, Intact - Patient Data Lab Results Last 24 hrs: Laboratory Results - last 24 hr 09/16/20 09/16/20 09/16/20 Range/Units 10:18 10:18 10:18 WBC 9.95 (4.0-11.0) K/uL RBC 4.27 L (4.30-5.90) M/uL Hgb 13.3 (12.0-16.0) g/dL Hct 40.7 (36.0-46.0) % MCV 95.3 (80.0-98.0) fL MCH 31.1 (27.0-32.0) pg MCHC 32.7 (31.0-37.0) g/dL RDW Std Deviation 56.2 (28.0-62.0) fl RDW Coeff of Greg 16 H (11.0-15.0) % Plt Count 306 (150-400) K/uL MPV 8.50 (7.40-12.00) fL Neut % (Auto) 65.9 (48.0-80.0) % Lymph % (Auto) 18.1 (16.0-40.0) % [place] % (Auto) 11.5 (0.0-15.0) % Eos % (Auto) 3.9 (0.0-7.0) % Baso % (Auto) 0.6 (0.0-1.5) % Neut # (Auto) 6.6 H (1.4-5.7) K/uL Lymph # (Auto) 1.8 (0.6-2.4) K/uL [place] # (Auto) 1.1 H (0.0-0.8) K/uL Eos # (Auto) 0.4 (0.0-0.7) K/uL Baso # (Auto) 0.1 (0.0-0.1) K/uL Nucleated RBC % 0.0 /100WBC Nucleated RBCs # 0 K/uL D-Dimer, Quantitative (0.0-0.50) mg/L FEU Sodium 145 (136-145) mmol/L Potassium 4.0 (3.5-5.1) mmol/L Chloride 105 (98-107) mmol/L Carbon Dioxide 29.0 (21.0-32.0) mmol/L BUN 10 (7.0-18.0) mg/dL Creatinine 1.1 H (0.6-1.0) mg/dL Est Cr Clr Drug Dosing 44.17 mL/min Estimated GFR (MDRD) 51.8 ml/min Glucose 90 (74-106) mg/dL POC Glucose (70-99) mg/dL Calcium 9.0 (8.5-10.1) mg/dL Magnesium 1.9 (1.8-2.4) mg/dL Total Bilirubin 0.2 (0.2-1.0) mg/dL AST 21 (15-37) IU/L ALT 14 (14-63) IU/L Alkaline Phosphatase 84 (46-116) U/L Troponin I < 0.050 (0.000-0.056) ng/mL B-Natriuretic Peptide (<100) PG/ML Total Protein 8.1 (6.4-8.2) g/dL Albumin 3.4 (3.4-5.0) g/dL Globulin 4.7 H (2.6-4.0) g/dL Albumin/Globulin Ratio 0.7 L (0.9-1.6) SARS-CoV-2 RNA (CLARA) (NEGATIVE) 09/16/20 09/16/20 09/16/20 Range/Units 10:18 10:18 13:15 WBC (4.0-11.0) K/uL RBC (4.30-5.90) M/uL Hgb (12.0-16.0) g/dL Hct (36.0-46.0) % MCV (80.0-98.0) fL MCH (27.0-32.0) pg MCHC (31.0-37.0) g/dL RDW Std Deviation (28.0-62.0) fl RDW Coeff of Greg (11.0-15.0) % Plt Count (150-400) K/uL MPV (7.40-12.00) fL Neut % (Auto) (48.0-80.0) % Lymph % (Auto) (16.0-40.0) % [place] % (Auto) (0.0-15.0) % Eos % (Auto) (0.0-7.0) % Baso % (Auto) (0.0-1.5) % Neut # (Auto) (1.4-5.7) K/uL Lymph # (Auto) (0.6-2.4) K/uL [place] # (Auto) (0.0-0.8) K/uL Eos # (Auto) (0.0-0.7) K/uL Baso # (Auto) (0.0-0.1) K/uL Nucleated RBC % /100WBC Nucleated RBCs # K/uL D-Dimer, Quantitative 0.42 (0.0-0.50) mg/L FEU Sodium (136-145) mmol/L Potassium (3.5-5.1) mmol/L Chloride (98-107) mmol/L Carbon Dioxide (21.0-32.0) mmol/L BUN (7.0-18.0) mg/dL Creatinine (0.6-1.0) mg/dL Est Cr Clr Drug Dosing mL/min Estimated GFR (MDRD) ml/min Glucose (74-106) mg/dL POC Glucose (70-99) mg/dL Calcium (8.5-10.1) mg/dL Magnesium (1.8-2.4) mg/dL Total Bilirubin (0.2-1.0) mg/dL AST (15-37) IU/L ALT (14-63) IU/L Alkaline Phosphatase (46-116) U/L Troponin I (0.000-0.056) ng/mL B-Natriuretic Peptide 13 (<100) PG/ML Total Protein (6.4-8.2) g/dL Albumin (3.4-5.0) g/dL Globulin (2.6-4.0) g/dL Albumin/Globulin Ratio (0.9-1.6) SARS-CoV-2 RNA (CLARA) NEGATIVE (NEGATIVE) 09/16/20 Range/Units 16:44 WBC (4.0-11.0) K/uL RBC (4.30-5.90) M/uL Hgb (12.0-16.0) g/dL Hct (36.0-46.0) % MCV (80.0-98.0) fL MCH (27.0-32.0) pg MCHC (31.0-37.0) g/dL RDW Std Deviation (28.0-62.0) fl RDW Coeff of Greg (11.0-15.0) % Plt Count (150-400) K/uL MPV (7.40-12.00) fL Neut % (Auto) (48.0-80.0) % Lymph % (Auto) (16.0-40.0) % [place] % (Auto) (0.0-15.0) % Eos % (Auto) (0.0-7.0) % Baso % (Auto) (0.0-1.5) % Neut # (Auto) (1.4-5.7) K/uL Lymph # (Auto) (0.6-2.4) K/uL [place] # (Auto) (0.0-0.8) K/uL Eos # (Auto) (0.0-0.7) K/uL Baso # (Auto) (0.0-0.1) K/uL Nucleated RBC % /100WBC Nucleated RBCs # K/uL D-Dimer, Quantitative (0.0-0.50) mg/L FEU Sodium (136-145) mmol/L Potassium (3.5-5.1) mmol/L Chloride (98-107) mmol/L Carbon Dioxide (21.0-32.0) mmol/L BUN (7.0-18.0) mg/dL Creatinine (0.6-1.0) mg/dL Est Cr Clr Drug Dosing mL/min Estimated GFR (MDRD) ml/min Glucose (74-106) mg/dL POC Glucose 179 H (70-99) mg/dL Calcium (8.5-10.1) mg/dL Magnesium (1.8-2.4) mg/dL Total Bilirubin (0.2-1.0) mg/dL AST (15-37) IU/L ALT (14-63) IU/L Alkaline Phosphatase (46-116) U/L Troponin I (0.000-0.056) ng/mL B-Natriuretic Peptide (<100) PG/ML Total Protein (6.4-8.2) g/dL Albumin (3.4-5.0) g/dL Globulin (2.6-4.0) g/dL Albumin/Globulin Ratio (0.9-1.6) SARS-CoV-2 RNA (CLARA) (NEGATIVE) Result Diagrams: 09/17/20 06:15 09/17/20 06:15 Sepsis Event Note - Evaluation Sepsis Screening Result: No Definite Risk - Focused Exam Vital Signs: Vital Signs Temp Pulse Resp BP Pulse Ox 09/16/20 16:00 36.8 C 77 20 128/68 92 L 09/16/20 13:46 77 19 138/54 L 94 L 09/16/20 12:46 77 17 127/54 L 94 L 09/16/20 11:46 87 18 136/52 L 94 L 09/16/20 11:16 89 17 141/53 H 91 L 09/16/20 10:27 36.2 C 85 24 H 134/58 L 92 L Problem List Initiated/Reviewed/Updated: Yes Orders Last 24hrs: Active Orders 24 hr Category Date Time Status Patient Status [ADT] Routine ADT 09/16/20 17:38 Ordered Accu Check [Blood Glucose Check, Bedside] [RC] TIDAC Care 09/16/20 15:06 Active Antiembolic Devices [RC] PER UNIT ROUTINE Care 09/16/20 17:39 Ordered Cardiac Monitoring [RC] Q8H Care 09/16/20 10:36 Active Oxygen Therapy [RC] PRN Care 09/16/20 17:38 Ordered RT Aerosol Therapy [RC] ASDIRECTED Care 09/16/20 10:37 Active RT Aerosol Therapy [RC] ASDIRECTED Care 09/16/20 10:37 Active RT Aerosol Therapy [RC] ASDIRECTED Care 09/16/20 10:37 Active RT Aerosol Therapy [RC] ASDIRECTED Care 09/16/20 15:08 Active RT Aerosol Therapy [RC] ASDIRECTED Care 09/16/20 17:39 Ordered Telemetry Monitoring [Cardiac Monitoring] [RC] . Care 09/16/20 14:12 Active DIRECTED Up ad Mary [RC] ASDIRECTED Care 09/16/20 17:38 Ordered VTE/DVT Education [RC] PER UNIT ROUTINE Care 09/16/20 17:38 Ordered Vital Signs [RC] Q4H Care 09/16/20 17:38 Ordered ADA Diabetic [[place] [employer] Diet] [DIET Diet 09/16/20 Lunch Active ] BASIC METABOLIC PANEL,BMP [CHEM] AM Lab 09/17/20 05:11 Ordered CBC WITH AUTO DIFF [HEME] AM Lab 09/17/20 05:11 Ordered Albuterol/Ipratropium [DuoNeb 3.0-0.5 MG/3 ML] Med 09/16/20 17:38 Ordered 3 ml NEB Q2H PRN Albuterol/Ipratropium [DuoNeb 3.0-0.5 MG/3 ML] Med 09/16/20 18:00 Active 3 ml NEB Q6HRRT Azithromycin [Zithromax] 500 mg Med 09/17/20 09:00 Active Sodium Chloride 0.9% [Normal Saline (AdvBag)] 250 ml IV DAILY Azithromycin [Zithromax] 500 mg Med 09/16/20 13:00 Active Sodium Chloride 0.9% [Normal Saline (AdvBag)] 250 ml IV ONETIME Dextrose 50% in Water Med 09/16/20 15:08 Active 50 ml IVPUSH ASDIRECTED PRN Enoxaparin [Lovenox] Med 09/16/20 17:45 Ordered 40 mg SUBCUT Q24H Glucagon,Human Recombinant [GlucaGen] Med 09/16/20 15:08 Active 1 mg IM ASDIRECTED PRN Insulin Aspart [NovoLOG] Med 09/16/20 17:00 Active See Protocol SUBCUT TIDAC Insulin Detemir [Levemir] Med 09/16/20 21:00 Active 55 unit SUBCUT BEDTIME Levothyroxine Med 09/17/20 07:30 Active 0 mcg PO ACBREAKFAST Levothyroxine Med 09/17/20 07:30 Active 0 mcg PO ACBREAKFAST Sodium Chloride 0.9% [Saline Flush] Med 09/16/20 10:36 Active 10 ml FLUSH ASDIRECTED PRN Sodium Chloride 0.9% [Saline Flush] Med 09/16/20 10:36 Active 2.5 ml FLUSH ASDIRECTED PRN methylPREDNISolone Sod Succ [Solu-MEDROL] Med 09/17/20 22:00 Ordered 125 mg IVPUSH Q12H Saline Lock Insert [OM.PC] Stat Oth 09/16/20 10:36 Ordered Sequential Compression Device [OM.PC] Per Unit Routine Oth 09/16/20 17:39 Ordered Resuscitation Status Routine Resus Stat 09/16/20 17:38 Ordered Medication Orders Albuterol/Ipratropium (Albuterol/Ipratropium 3.0-0.5 Mg/3 Ml Neb Soln) 3 ml NEB Q6HRRT MELONY Last Admin: 09/16/20 17:36 Dose: 3 ml Documented by: DAMARI Dextrose/Water (50% Dextrose In Water 50 Ml Syringe) 50 ml IVPUSH ASDIRECTED PRN PRN Reason: Hypoglycemia Glucagon (Glucagon,Human Recombinant 1 Mg Vial) 1 mg IM ASDIRECTED PRN PRN Reason: Hypoglycemia Azithromycin 500 mg/ Sodium (Chloride) 250 mls @ 250 mls/hr IV ONETIME MELONY Last Admin: 09/16/20 13:40 Dose: 250 mls/hr Documented by: FARRUKH Azithromycin 500 mg/ Sodium (Chloride) 250 mls @ 250 mls/hr IV DAILY MELONY Insulin Aspart (Insulin Aspart 100 Units/Ml 3 Ml Pen) 0 unit SUBCUT TIDAC MELONY; Protocol Last Admin: 09/16/20 16:56 Dose: 2 units Documented by: CARINA Insulin Detemir (Insulin Detemir 100 Units/Ml 3 Ml Pen) 55 unit SUBCUT BEDTIME MELONY Levothyroxine Sodium (Levothyroxine 112 Mcg Tab) 0 mcg PO ACBREAKFAST MELONY Levothyroxine Sodium (Levothyroxine 25 Mcg Tab) 0 mcg PO ACBREAKFAST MELONY Methylprednisolone Sodium Succinate (Methylprednisolone Sodium Succinate 125 Mg/2 Ml Sdv) 125 mg IVPUSH Q12H MELONY Sodium Chloride (Sodium Chloride 0.9% 2.5 Ml Syringe) 2.5 ml FLUSH ASDIRECTED PRN PRN Reason: Keep Vein Open Last Admin: 09/16/20 10:40 Dose: 2.5 ml Documented by: [id number] Sodium Chloride (Sodium Chloride 0.9% 10 Ml Syringe) 10 ml FLUSH ASDIRECTED PRN PRN Reason: Keep Vein Open Last Admin: 09/16/20 10:40 Dose: 10 ml Documented by: [id number] Assessment/Plan Comment:: 55 yo female admitted for COPD exacerbation COPD exacerbation: duonebs, solumedrol, azithromycin Acute on chronic respiratory failure: wean supplemental oxygen as tolerated DM: levemir plus sliding scale insulin.
[2020-09-16] MEDS ORDERED: Enoxaparin 40 MG/0.4 ML Syringe SUBCUT SCH (17:45)
[2020-09-16] MEDS: Insulin Detemir 100 Units/ML 3 ML Pen SUBCUT SCH (20:55)
[2020-09-16] MEDS: Enoxaparin 40 MG/0.4 ML Syringe SUBCUT SCH (20:58)
[2020-09-16] MEDS: methylPREDNISolone Sodium Succinate 125 MG/2 ML SDV IVPUSH SCH (21:03)
[2020-09-16] MEDS ORDERED: Gabapentin 300 MG Cap PO SCH (22:00)
[2020-09-17] MEDS: Albuterol/Ipratropium 3.0-0.5 MG/3 ML Neb Soln NEB SCH ×3 (06:00→17:01)
[2020-09-17 07:21] LABS: BLOOD UREA NITROGEN,BUN 14 mg/dL (7.0-18.0); CARBON DIOXIDE,CO2 27.2 mmol/L (21.0-32.0); CHLORIDE,CL 104 mmol/L (98-107); GLUCOSE RANDOM 230 mg/dL (74-106); POTASSIUM,K 4.5 mmol/L (3.5-5.1); SODIUM,NA 140 mmol/L (136-145)
[2020-09-17] MEDS ORDERED: Levothyroxine 112 MCG Tab PO SCH (07:30)
[2020-09-17] MEDS ORDERED: Levothyroxine 25 MCG Tab PO SCH (07:30)
[2020-09-17] MEDS: methylPREDNISolone Sodium Succinate 125 MG/2 ML SDV IVPUSH SCH ×2 (08:43→21:57)
[2020-09-17] MEDS: Azithromycin 500 MG in Sodium Chloride 0.9% 250 ML IV SCH (08:45)
[2020-09-17] MEDS: Insulin Aspart 100 Units/ML 3 ML Pen SUBCUT SCH ×3 (08:56→18:31)
[2020-09-17] MEDS: Acetaminophen 325 MG Tab PO PRN ×2 (12:44→18:30)
--- NOTE | 2020-09-17 15:54 | PCM.PN ---
- General Info Date of Service: 09/17/20 - Review of Systems Systems Review Comment:: feeling better, shortness of breath has improved - Patient Data Vitals - Most Recent: Last Vital Signs Temp 36.4 C 09/17/20 14:00 Pulse 81 09/17/20 14:00 Resp 16 09/17/20 14:00 BP 111/58 L 09/17/20 14:00 Pulse Ox 96 09/17/20 14:00 Weight - Most Recent: 94.3 kg I&O - Last 24 Hours: Intake & Output 09/17/20 09/17/20 09/17/20 06:59 14:59 22:59 Intake Total 1200 Output Total 900 Balance 300 Lab Results Last 24 Hours: Laboratory Results - last 24 hr 09/16/20 09/16/20 09/17/20 Range/Units 16:44 20:54 06:15 WBC 11.39 H (4.0-11.0) K/uL RBC 4.05 L (4.30-5.90) M/uL Hgb 12.3 (12.0-16.0) g/dL Hct 38.6 (36.0-46.0) % MCV 95.3 (80.0-98.0) fL MCH 30.4 (27.0-32.0) pg MCHC 31.9 (31.0-37.0) g/dL RDW Std Deviation 54.9 (28.0-62.0) fl RDW Coeff of Greg 16 H (11.0-15.0) % Plt Count 297 (150-400) K/uL MPV 8.90 (7.40-12.00) fL Neut % (Auto) 89.5 H (48.0-80.0) % Lymph % (Auto) 7.3 L (16.0-40.0) % [place] % (Auto) 3.1 (0.0-15.0) % Eos % (Auto) 0.0 (0.0-7.0) % Baso % (Auto) 0.1 (0.0-1.5) % Neut # (Auto) 10.2 H (1.4-5.7) K/uL Lymph # (Auto) 0.8 (0.6-2.4) K/uL [place] # (Auto) 0.4 (0.0-0.8) K/uL Eos # (Auto) 0.0 (0.0-0.7) K/uL Baso # (Auto) 0.0 (0.0-0.1) K/uL Nucleated RBC % 0.0 /100WBC Nucleated RBCs # 0 K/uL Sodium (136-145) mmol/L Potassium (3.5-5.1) mmol/L Chloride (98-107) mmol/L Carbon Dioxide (21.0-32.0) mmol/L BUN (7.0-18.0) mg/dL Creatinine (0.6-1.0) mg/dL Est Cr Clr Drug Dosing mL/min Estimated GFR (MDRD) ml/min Glucose (74-106) mg/dL POC Glucose 179 H 318 H (70-99) mg/dL Calcium (8.5-10.1) mg/dL 09/17/20 09/17/20 09/17/20 Range/Units 06:15 06:17 12:42 WBC (4.0-11.0) K/uL RBC (4.30-5.90) M/uL Hgb (12.0-16.0) g/dL Hct (36.0-46.0) % MCV (80.0-98.0) fL MCH (27.0-32.0) pg MCHC (31.0-37.0) g/dL RDW Std Deviation (28.0-62.0) fl RDW Coeff of Greg (11.0-15.0) % Plt Count (150-400) K/uL MPV (7.40-12.00) fL Neut % (Auto) (48.0-80.0) % Lymph % (Auto) (16.0-40.0) % [place] % (Auto) (0.0-15.0) % Eos % (Auto) (0.0-7.0) % Baso % (Auto) (0.0-1.5) % Neut # (Auto) (1.4-5.7) K/uL Lymph # (Auto) (0.6-2.4) K/uL [place] # (Auto) (0.0-0.8) K/uL Eos # (Auto) (0.0-0.7) K/uL Baso # (Auto) (0.0-0.1) K/uL Nucleated RBC % /100WBC Nucleated RBCs # K/uL Sodium 140 (136-145) mmol/L Potassium 4.5 (3.5-5.1) mmol/L Chloride 104 (98-107) mmol/L Carbon Dioxide 27.2 (21.0-32.0) mmol/L BUN 14 (7.0-18.0) mg/dL Creatinine 0.9 (0.6-1.0) mg/dL Est Cr Clr Drug Dosing 53.92 mL/min Estimated GFR (MDRD) > 60.0 ml/min Glucose 230 H (74-106) mg/dL POC Glucose 199 H 152 H (70-99) mg/dL Calcium 8.6 (8.5-10.1) mg/dL Med Orders - Current: Current Medications Acetaminophen (Acetaminophen 325 Mg Tab) 650 mg PO Q6H PRN PRN Reason: Pain Last Admin: 09/17/20 12:44 Dose: 650 mg Documented by: Albuterol/Ipratropium (Albuterol/Ipratropium 3.0-0.5 Mg/3 Ml Neb Soln) 3 ml NEB Q6HRRT [facility] Last Admin: 09/17/20 11:29 Dose: 3 ml Documented by: Albuterol/Ipratropium (Albuterol/Ipratropium 3.0-0.5 Mg/3 Ml Neb Soln) 3 ml NEB Q2H PRN PRN Reason: Shortness Of Breath/wheezing Dextrose/Water (50% Dextrose In Water 50 Ml Syringe) 50 ml IVPUSH ASDIRECTED PRN PRN Reason: Hypoglycemia Enoxaparin Sodium (Enoxaparin 40 Mg/0.4 Ml Syringe) 40 mg SUBCUT Q24H [facility] Last Admin: 09/16/20 20:58 Dose: 40 mg Documented by: Glucagon (Glucagon,Human Recombinant 1 Mg Vial) 1 mg IM ASDIRECTED PRN PRN Reason: Hypoglycemia Azithromycin 500 mg/ Sodium (Chloride) 250 mls @ 250 mls/hr IV DAILY [facility] Last Admin: 09/17/20 08:45 Dose: 250 mls/hr Documented by: Insulin Aspart (Insulin Aspart 100 Units/Ml 3 Ml Pen) 0 unit SUBCUT TIDAC [facility]; Protocol Last Admin: 09/17/20 12:46 Dose: 2 units Documented by: Insulin Detemir (Insulin Detemir 100 Units/Ml 3 Ml Pen) 55 unit SUBCUT BEDTIME [facility] Last Admin: 09/16/20 20:55 Dose: 55 units Documented by: Levothyroxine Sodium (Levothyroxine 112 Mcg Tab) 112 mcg PO ACBREAKFAST [facility] Levothyroxine Sodium (Levothyroxine 25 Mcg Tab) 25 mcg PO ACBREAKFAST [facility] Methylprednisolone Sodium Succinate (Methylprednisolone Sodium Succinate 125 Mg/2 Ml Sdv) 125 mg IVPUSH Q12H [facility] Last Admin: 09/17/20 08:43 Dose: 125 mg Documented by: Sodium Chloride (Sodium Chloride 0.9% 2.5 Ml Syringe) 2.5 ml FLUSH ASDIRECTED PRN PRN Reason: Keep Vein Open Last Admin: 09/16/20 10:40 Dose: 2.5 ml Documented by: Sodium Chloride (Sodium Chloride 0.9% 10 Ml Syringe) 10 ml FLUSH ASDIRECTED PRN PRN Reason: Keep Vein Open Last Admin: 09/16/20 10:40 Dose: 10 ml Documented by: Discontinued Medications Albuterol/Ipratropium (Albuterol/Ipratropium 3.0-0.5 Mg/3 Ml Neb Soln) 3 ml NEB ONETIME ONE Stop: 09/16/20 10:38 Last Admin: 09/16/20 10:41 Dose: 3 ml Documented by: Albuterol/Ipratropium (Albuterol/Ipratropium 3.0-0.5 Mg/3 Ml Neb Soln) 3 ml NEB ONETIME ONE Stop: 09/16/20 10:38 Last Admin: 09/16/20 10:41 Dose: 3 ml Documented by: Albuterol/Ipratropium (Albuterol/Ipratropium 3.0-0.5 Mg/3 Ml Neb Soln) 3 ml NEB ONETIME ONE Stop: 09/16/20 10:38 Last Admin: 09/16/20 10:41 Dose: 3 ml Documented by: Albuterol/Ipratropium (Albuterol/Ipratropium 3.0-0.5 Mg/3 Ml Neb Soln) 3 ml NEB Q6HRRT PRN PRN Reason: Shortness of Breath Enoxaparin Sodium (Enoxaparin 40 Mg/0.4 Ml Syringe) 40 mg SUBCUT Q24H MELONY Last Admin: 09/16/20 21:00 Dose: Not Given Documented by: Azithromycin 500 mg/ Sodium (Chloride) 250 mls @ 250 mls/hr IV ONETIME MELONY Last Admin: 09/16/20 13:40 Dose: 250 mls/hr Documented by: Levothyroxine Sodium (Levothyroxine 112 Mcg Tab) 0 mcg PO ACBREAKFAST MELONY Last Admin: 09/17/20 06:33 Dose: 112 mcg Documented by: Levothyroxine Sodium (Levothyroxine 25 Mcg Tab) 0 mcg PO ACBREAKFAST MELONY Last Admin: 09/17/20 06:32 Dose: 25 mcg Documented by: Methylprednisolone Sodium Succinate (Methylprednisolone Sodium Succinate 125 Mg/2 Ml Sdv) 125 mg IVPUSH ONETIME ONE Stop: 09/16/20 10:38 Last Admin: 09/16/20 10:41 Dose: 125 mg Documented by: - Exam General: Alert, Oriented Lungs: Clear to Auscultation, Normal Respiratory Effort GI/Abdominal Exam: Soft, Non-Tender, No Distention Extremities: Non-Tender, No Pedal Edema Skin: Warm, Dry, Intact Neurological: No New Focal Deficit - Patient Data Lab Results Last 24 hrs: Laboratory Results - last 24 hr 09/16/20 09/16/20 09/17/20 Range/Units 16:44 20:54 06:15 WBC 11.39 H (4.0-11.0) K/uL RBC 4.05 L (4.30-5.90) M/uL Hgb 12.3 (12.0-16.0) g/dL Hct 38.6 (36.0-46.0) % MCV 95.3 (80.0-98.0) fL MCH 30.4 (27.0-32.0) pg MCHC 31.9 (31.0-37.0) g/dL RDW Std Deviation 54.9 (28.0-62.0) fl RDW Coeff of Greg 16 H (11.0-15.0) % Plt Count 297 (150-400) K/uL MPV 8.90 (7.40-12.00) fL Neut % (Auto) 89.5 H (48.0-80.0) % Lymph % (Auto) 7.3 L (16.0-40.0) % [place] % (Auto) 3.1 (0.0-15.0) % Eos % (Auto) 0.0 (0.0-7.0) % Baso % (Auto) 0.1 (0.0-1.5) % Neut # (Auto) 10.2 H (1.4-5.7) K/uL Lymph # (Auto) 0.8 (0.6-2.4) K/uL [place] # (Auto) 0.4 (0.0-0.8) K/uL Eos # (Auto) 0.0 (0.0-0.7) K/uL Baso # (Auto) 0.0 (0.0-0.1) K/uL Nucleated RBC % 0.0 /100WBC Nucleated RBCs # 0 K/uL Sodium (136-145) mmol/L Potassium (3.5-5.1) mmol/L Chloride (98-107) mmol/L Carbon Dioxide (21.0-32.0) mmol/L BUN (7.0-18.0) mg/dL Creatinine (0.6-1.0) mg/dL Est Cr Clr Drug Dosing mL/min Estimated GFR (MDRD) ml/min Glucose (74-106) mg/dL POC Glucose 179 H 318 H (70-99) mg/dL Calcium (8.5-10.1) mg/dL 09/17/20 09/17/20 09/17/20 Range/Units 06:15 06:17 12:42 WBC (4.0-11.0) K/uL RBC (4.30-5.90) M/uL Hgb (12.0-16.0) g/dL Hct (36.0-46.0) % MCV (80.0-98.0) fL MCH (27.0-32.0) pg MCHC (31.0-37.0) g/dL RDW Std Deviation (28.0-62.0) fl RDW Coeff of Greg (11.0-15.0) % Plt Count (150-400) K/uL MPV (7.40-12.00) fL Neut % (Auto) (48.0-80.0) % Lymph % (Auto) (16.0-40.0) % [place] % (Auto) (0.0-15.0) % Eos % (Auto) (0.0-7.0) % Baso % (Auto) (0.0-1.5) % Neut # (Auto) (1.4-5.7) K/uL Lymph # (Auto) (0.6-2.4) K/uL [place] # (Auto) (0.0-0.8) K/uL Eos # (Auto) (0.0-0.7) K/uL Baso # (Auto) (0.0-0.1) K/uL Nucleated RBC % /100WBC Nucleated RBCs # K/uL Sodium 140 (136-145) mmol/L Potassium 4.5 (3.5-5.1) mmol/L Chloride 104 (98-107) mmol/L Carbon Dioxide 27.2 (21.0-32.0) mmol/L BUN 14 (7.0-18.0) mg/dL Creatinine 0.9 (0.6-1.0) mg/dL Est Cr Clr Drug Dosing 53.92 mL/min Estimated GFR (MDRD) > 60.0 ml/min Glucose 230 H (74-106) mg/dL POC Glucose 199 H 152 H (70-99) mg/dL Calcium 8.6 (8.5-10.1) mg/dL Result Diagrams: 09/17/20 06:15 09/17/20 06:15 Sepsis Event Note - Evaluation Sepsis Screening Result: No Definite Risk - Focused Exam Vital Signs: Vital Signs Temp Pulse Resp BP Pulse Ox 09/17/20 14:00 36.4 C 81 16 111/58 L 96 09/17/20 10:00 36.9 C 82 16 115/61 94 L 09/17/20 04:10 36.6 C 63 16 117/57 L 94 L - Problem List Review Problem List Initiated/Reviewed/Updated: Yes - My Orders Last 24 Hours: My Active Orders 09/16/20 15:06 Accu Check [Blood Glucose Check, Bedside] [RC] TIDAC 09/16/20 15:08 RT Aerosol Therapy [RC] ASDIRECTED Dextrose 50% in Water 50 ml IVPUSH ASDIRECTED PRN Glucagon,Human Recombinant [GlucaGen] 1 mg IM ASDIRECTED PRN 09/16/20 17:00 Insulin Aspart [NovoLOG] See Protocol SUBCUT TIDAC 09/16/20 17:38 Patient Status [ADT] Routine Oxygen Therapy [RC] PRN Up ad Mary [RC] ASDIRECTED VTE/DVT Education [RC] PER UNIT ROUTINE Vital Signs [RC] Q4H Albuterol/Ipratropium [DuoNeb 3.0-0.5 MG/3 ML] 3 ml NEB Q2H PRN Resuscitation Status Routine 09/16/20 17:39 Antiembolic Devices [RC] PER UNIT ROUTINE RT Aerosol Therapy [RC] ASDIRECTED Sequential Compression Device [OM.PC] Per Unit Routine 09/16/20 18:00 Albuterol/Ipratropium [DuoNeb 3.0-0.5 MG/3 ML] 3 ml NEB Q6HRRT 09/16/20 21:00 Enoxaparin [Lovenox] 40 mg SUBCUT Q24H Insulin Detemir [Levemir] 55 unit SUBCUT BEDTIME methylPREDNISolone Sod Succ [Solu-MEDROL] 125 mg IVPUSH Q12H 09/17/20 09:00 Azithromycin [Zithromax] 500 mg Sodium Chloride 0.9% [Normal Saline (AdvBag)] 250 ml IV DAILY 09/17/20 12:19 Acetaminophen [TylenoL] 650 mg PO Q6H PRN 09/18/20 07:30 Levothyroxine 112 mcg PO ACBREAKFAST Levothyroxine 25 mcg PO ACBREAKFAST - Plan Plan:: 55 yo female admitted for COPD exacerbation COPD exacerbation: duonebs, solumedrol, azithromycin Acute on chronic respiratory failure: on 2 L NC, wean supplemental oxygen as tolerated DM: levemir plus sliding scale insulin. dispo: likely home tomorrow.
[2020-09-17] MEDS: Insulin Detemir 100 Units/ML 3 ML Pen SUBCUT SCH (21:53)
[2020-09-17] MEDS: Enoxaparin 40 MG/0.4 ML Syringe SUBCUT SCH (21:54)
[2020-09-18] MEDS: Albuterol/Ipratropium 3.0-0.5 MG/3 ML Neb Soln NEB SCH ×5 (00:08→23:46)
[2020-09-18] MEDS: Acetaminophen 325 MG Tab PO PRN (05:14)
[2020-09-18 06:16] LABS: CARBON DIOXIDE,CO2 27.7 mmol/L (21.0-32.0); POTASSIUM,K 4.5 mmol/L (3.5-5.1)
[2020-09-18] MEDS: Levothyroxine 112 MCG Tab PO SCH (06:33)
[2020-09-18] MEDS: Levothyroxine 25 MCG Tab PO SCH (06:33)
[2020-09-18] MEDS: Azithromycin 500 MG in Sodium Chloride 0.9% 250 ML IV SCH (08:03)
[2020-09-18] MEDS: methylPREDNISolone Sodium Succinate 125 MG/2 ML SDV IVPUSH SCH ×2 (08:03→21:06)
[2020-09-18] MEDS: Insulin Aspart 100 Units/ML 3 ML Pen SUBCUT SCH ×3 (08:04→18:32)
[2020-09-18] MEDS ORDERED: Ibuprofen 400 MG Tab PO PRN (09:47)
[2020-09-18] MEDS ORDERED: diphenhydrAMINE 50 MG/ML SDV IVPUSH ONE (12:23)
[2020-09-18] MEDS ORDERED: LORazepam 2 MG/ML SDV IVPUSH ONE (12:23)
[2020-09-18] MEDS ORDERED: Ketorolac 15 MG/ML SDV IVPUSH ONE (12:24)
--- NOTE | 2020-09-18 12:30 | PCM.PN ---
- General Info Date of Service: 09/18/20 Admission Dx/Problem (Free Text): Admission Diagnosis/Problem Admission Diagnosis/Problem COPD, Moderate chronic obstructive pulmonary disease Subjective Update: Patient seen and examined at bedside, patient states that she feels "rotten", states that she is having a bad headache with photophobia and thinks that because she has not taken her antidepressants that is causing her to have a headache. Patient states that she has asked her to get her medications but seems like he is reluctant to get them to the hospital. Patient states that she is still not at her baseline and feels short of breath. She continues to need 2 L continuous nasal cannula. At home she uses oxygen as needed for shortness of breath. Functional Status: Reports: Pain Controlled, Tolerating Diet, Ambulating, Urinating - Review of Systems General: Reports: Weakness, Fatigue, Malaise Pulmonary: Reports: Shortness of Breath, Cough. Denies: Pleuritic Chest Pain Cardiovascular: Denies: Chest Pain, Palpitations Gastrointestinal: Denies: Abdominal Pain, Constipation Genitourinary: Denies: Dysuria, Frequency, Burning Musculoskeletal: Denies: Neck Pain, Shoulder Pain, Arm Pain Neurological: Reports: Headache, Other (Photophobia). Denies: Numbness, Paresthesia, Pre-Existing Deficit - Patient Data Vitals - Most Recent: Last Vital Signs Temp 36.3 C 09/18/20 11:00 Pulse 65 09/18/20 11:00 Resp 16 09/18/20 11:00 BP 134/65 09/18/20 11:00 Pulse Ox 94 L 09/18/20 11:00 Weight - Most Recent: 94.3 kg I&O - Last 24 Hours: Intake & Output 09/17/20 09/18/20 09/18/20 22:59 06:59 14:59 Intake Total 740 220 Output Total 800 200 Balance -60 20 Lab Results Last 24 Hours: Laboratory Results - last 24 hr 09/17/20 09/17/20 09/17/20 Range/Units 12:42 18:26 21:52 WBC (4.0-11.0) K/uL RBC (4.30-5.90) M/uL Hgb (12.0-16.0) g/dL Hct (36.0-46.0) % MCV (80.0-98.0) fL MCH (27.0-32.0) pg MCHC (31.0-37.0) g/dL RDW Std Deviation (28.0-62.0) fl RDW Coeff of Greg (11.0-15.0) % Plt Count (150-400) K/uL MPV (7.40-12.00) fL Neut % (Auto) (48.0-80.0) % Lymph % (Auto) (16.0-40.0) % [place] % (Auto) (0.0-15.0) % Eos % (Auto) (0.0-7.0) % Baso % (Auto) (0.0-1.5) % Neut # (Auto) (1.4-5.7) K/uL Lymph # (Auto) (0.6-2.4) K/uL [place] # (Auto) (0.0-0.8) K/uL Eos # (Auto) (0.0-0.7) K/uL Baso # (Auto) (0.0-0.1) K/uL Nucleated RBC % /100WBC Nucleated RBCs # K/uL Sodium (136-145) mmol/L Potassium (3.5-5.1) mmol/L Chloride (98-107) mmol/L Carbon Dioxide (21.0-32.0) mmol/L BUN (7.0-18.0) mg/dL Creatinine (0.6-1.0) mg/dL Est Cr Clr Drug Dosing mL/min Estimated GFR (MDRD) ml/min Glucose (74-106) mg/dL POC Glucose 152 H 252 H 245 H (70-99) mg/dL Calcium (8.5-10.1) mg/dL 09/18/20 09/18/20 09/18/20 Range/Units 05:25 05:25 06:31 WBC 20.49 H (4.0-11.0) K/uL RBC 4.01 L (4.30-5.90) M/uL Hgb 12.2 (12.0-16.0) g/dL Hct 38.6 (36.0-46.0) % MCV 96.3 (80.0-98.0) fL MCH 30.4 (27.0-32.0) pg MCHC 31.6 (31.0-37.0) g/dL RDW Std Deviation 56.9 (28.0-62.0) fl RDW Coeff of Greg 16 H (11.0-15.0) % Plt Count 306 (150-400) K/uL MPV 8.80 (7.40-12.00) fL Neut % (Auto) 92.2 H (48.0-80.0) % Lymph % (Auto) 3.7 L (16.0-40.0) % [place] % (Auto) 4.1 (0.0-15.0) % Eos % (Auto) 0.0 (0.0-7.0) % Baso % (Auto) 0.0 (0.0-1.5) % Neut # (Auto) 18.9 H (1.4-5.7) K/uL Lymph # (Auto) 0.8 (0.6-2.4) K/uL [place] # (Auto) 0.9 H (0.0-0.8) K/uL Eos # (Auto) 0.0 (0.0-0.7) K/uL Baso # (Auto) 0.0 (0.0-0.1) K/uL Nucleated RBC % 0.0 /100WBC Nucleated RBCs # 0 K/uL Sodium 141 (136-145) mmol/L Potassium 4.5 (3.5-5.1) mmol/L Chloride 105 (98-107) mmol/L Carbon Dioxide 27.7 (21.0-32.0) mmol/L BUN 16 (7.0-18.0) mg/dL Creatinine 1.0 (0.6-1.0) mg/dL Est Cr Clr Drug Dosing 48.53 mL/min Estimated GFR (MDRD) 57.8 ml/min Glucose 201 H (74-106) mg/dL POC Glucose 198 H (70-99) mg/dL Calcium 8.7 (8.5-10.1) mg/dL 09/18/20 Range/Units 11:19 WBC (4.0-11.0) K/uL RBC (4.30-5.90) M/uL Hgb (12.0-16.0) g/dL Hct (36.0-46.0) % MCV (80.0-98.0) fL MCH (27.0-32.0) pg MCHC (31.0-37.0) g/dL RDW Std Deviation (28.0-62.0) fl RDW Coeff of Greg (11.0-15.0) % Plt Count (150-400) K/uL MPV (7.40-12.00) fL Neut % (Auto) (48.0-80.0) % Lymph % (Auto) (16.0-40.0) % [place] % (Auto) (0.0-15.0) % Eos % (Auto) (0.0-7.0) % Baso % (Auto) (0.0-1.5) % Neut # (Auto) (1.4-5.7) K/uL Lymph # (Auto) (0.6-2.4) K/uL [place] # (Auto) (0.0-0.8) K/uL Eos # (Auto) (0.0-0.7) K/uL Baso # (Auto) (0.0-0.1) K/uL Nucleated RBC % /100WBC Nucleated RBCs # K/uL Sodium (136-145) mmol/L Potassium (3.5-5.1) mmol/L Chloride (98-107) mmol/L Carbon Dioxide (21.0-32.0) mmol/L BUN (7.0-18.0) mg/dL Creatinine (0.6-1.0) mg/dL Est Cr Clr Drug Dosing mL/min Estimated GFR (MDRD) ml/min Glucose (74-106) mg/dL POC Glucose 215 H (70-99) mg/dL Calcium (8.5-10.1) mg/dL Med Orders - Current: Current Medications Acetaminophen (Acetaminophen 325 Mg Tab) 650 mg PO Q6H PRN PRN Reason: Pain Last Admin: 09/18/20 05:14 Dose: 650 mg Documented by: Albuterol/Ipratropium (Albuterol/Ipratropium 3.0-0.5 Mg/3 Ml Neb Soln) 3 ml NEB Q6HRRT MELONY Last Admin: 09/18/20 11:15 Dose: 3 ml Documented by: Albuterol/Ipratropium (Albuterol/Ipratropium 3.0-0.5 Mg/3 Ml Neb Soln) 3 ml NEB Q2H PRN PRN Reason: Shortness Of Breath/wheezing Last Admin: 09/18/20 00:08 Dose: 3 ml Documented by: Dextrose/Water (50% Dextrose In Water 50 Ml Syringe) 50 ml IVPUSH ASDIRECTED PRN PRN Reason: Hypoglycemia Enoxaparin Sodium (Enoxaparin 40 Mg/0.4 Ml Syringe) 40 mg SUBCUT Q24H MELONY Last Admin: 09/17/20 21:54 Dose: 40 mg Documented by: Gabapentin (Gabapentin 300 Mg Cap) 600 mg PO TID MELONY Glucagon (Glucagon,Human Recombinant 1 Mg Vial) 1 mg IM ASDIRECTED PRN PRN Reason: Hypoglycemia Azithromycin 500 mg/ Sodium (Chloride) 250 mls @ 250 mls/hr IV DAILY [facility] Last Admin: 09/18/20 08:03 Dose: 250 mls/hr Documented by: Ibuprofen (Ibuprofen 400 Mg Tab) 400 mg PO Q6H PRN PRN Reason: Pain Last Admin: 09/18/20 10:07 Dose: 400 mg Documented by: Insulin Aspart (Insulin Aspart 100 Units/Ml 3 Ml Pen) 0 unit SUBCUT TIDAC [facility]; Protocol Last Admin: 09/18/20 11:36 Dose: 4 units Documented by: Insulin Detemir (Insulin Detemir 100 Units/Ml 3 Ml Pen) 55 unit SUBCUT BEDTIME [facility] Last Admin: 09/17/20 21:53 Dose: 55 units Documented by: Levothyroxine Sodium (Levothyroxine 112 Mcg Tab) 112 mcg PO ACBREAKFAST [facility] Last Admin: 09/18/20 06:33 Dose: 112 mcg Documented by: Levothyroxine Sodium (Levothyroxine 25 Mcg Tab) 25 mcg PO ACBREAKFAST MELONY Last Admin: 09/18/20 06:33 Dose: 25 mcg Documented by: Methylprednisolone Sodium Succinate (Methylprednisolone Sodium Succinate 125 Mg/2 Ml Sdv) 125 mg IVPUSH Q12H [facility] Last Admin: 09/18/20 08:03 Dose: 125 mg Documented by: Desvenlafaxine Succinate [Pristiq] 50 Mg Tab.Er.24h 1 each PO BEDTIME MELONY Fluticasone/Umeclidin/Vilanter [ Trelegy Ellipta 100- 62.5- 1 each INH DAILY [facility] Sodium Chloride (Sodium Chloride 0.9% 2.5 Ml Syringe) 2.5 ml FLUSH ASDIRECTED PRN PRN Reason: Keep Vein Open Last Admin: 09/16/20 10:40 Dose: 2.5 ml Documented by: Sodium Chloride (Sodium Chloride 0.9% 10 Ml Syringe) 10 ml FLUSH ASDIRECTED PRN PRN Reason: Keep Vein Open Last Admin: 09/16/20 10:40 Dose: 10 ml Documented by: Discontinued Medications Albuterol/Ipratropium (Albuterol/Ipratropium 3.0-0.5 Mg/3 Ml Neb Soln) 3 ml NEB ONETIME ONE Stop: 09/16/20 10:38 Last Admin: 09/16/20 10:41 Dose: 3 ml Documented by: Albuterol/Ipratropium (Albuterol/Ipratropium 3.0-0.5 Mg/3 Ml Neb Soln) 3 ml NEB ONETIME ONE Stop: 09/16/20 10:38 Last Admin: 09/16/20 10:41 Dose: 3 ml Documented by: Albuterol/Ipratropium (Albuterol/Ipratropium 3.0-0.5 Mg/3 Ml Neb Soln) 3 ml NEB ONETIME ONE Stop: 09/16/20 10:38 Last Admin: 09/16/20 10:41 Dose: 3 ml Documented by: Albuterol/Ipratropium (Albuterol/Ipratropium 3.0-0.5 Mg/3 Ml Neb Soln) 3 ml NEB Q6HRRT PRN PRN Reason: Shortness of Breath Diphenhydramine HCl (Diphenhydramine 50 Mg/Ml Sdv) 25 mg IVPUSH ONETIME ONE Stop: 09/18/20 12:24 Enoxaparin Sodium (Enoxaparin 40 Mg/0.4 Ml Syringe) 40 mg SUBCUT Q24H MELONY Last Admin: 09/16/20 21:00 Dose: Not Given Documented by: Azithromycin 500 mg/ Sodium (Chloride) 250 mls @ 250 mls/hr IV ONETIME MELONY Last Admin: 09/16/20 13:40 Dose: 250 mls/hr Documented by: Levothyroxine Sodium (Levothyroxine 112 Mcg Tab) 0 mcg PO ACBREAKFAST MELONY Last Admin: 09/17/20 06:33 Dose: 112 mcg Documented by: Levothyroxine Sodium (Levothyroxine 25 Mcg Tab) 0 mcg PO ACBREAKFAST MELONY Last Admin: 09/17/20 06:32 Dose: 25 mcg Documented by: Lorazepam (Lorazepam 2 Mg/Ml Sdv) 0.5 mg IVPUSH ONETIME ONE Stop: 09/18/20 12:24 Methylprednisolone Sodium Succinate (Methylprednisolone Sodium Succinate 125 Mg/2 Ml Sdv) 125 mg IVPUSH ONETIME ONE Stop: 09/16/20 10:38 Last Admin: 09/16/20 10:41 Dose: 125 mg Documented by: - Exam General: Alert, Oriented Lungs: Decreased Breath Sounds, Rales, Wheezing Cardiovascular: Regular Rate, Regular Rhythm GI/Abdominal Exam: Normal Bowel Sounds, Soft, Non-Tender Extremities: Normal Inspection, Normal Range of Motion Neurological: No New Focal Deficit, Normal Gait, Normal Speech, Normal Tone - Patient Data Lab Results Last 24 hrs: Laboratory Results - last 24 hr 09/17/20 09/17/20 09/17/20 Range/Units 12:42 18:26 21:52 WBC (4.0-11.0) K/uL RBC (4.30-5.90) M/uL Hgb (12.0-16.0) g/dL Hct (36.0-46.0) % MCV (80.0-98.0) fL MCH (27.0-32.0) pg MCHC (31.0-37.0) g/dL RDW Std Deviation (28.0-62.0) fl RDW Coeff of Greg (11.0-15.0) % Plt Count (150-400) K/uL MPV (7.40-12.00) fL Neut % (Auto) (48.0-80.0) % Lymph % (Auto) (16.0-40.0) % [place] % (Auto) (0.0-15.0) % Eos % (Auto) (0.0-7.0) % Baso % (Auto) (0.0-1.5) % Neut # (Auto) (1.4-5.7) K/uL Lymph # (Auto) (0.6-2.4) K/uL [place] # (Auto) (0.0-0.8) K/uL Eos # (Auto) (0.0-0.7) K/uL Baso # (Auto) (0.0-0.1) K/uL Nucleated RBC % /100WBC Nucleated RBCs # K/uL Sodium (136-145) mmol/L Potassium (3.5-5.1) mmol/L Chloride (98-107) mmol/L Carbon Dioxide (21.0-32.0) mmol/L BUN (7.0-18.0) mg/dL Creatinine (0.6-1.0) mg/dL Est Cr Clr Drug Dosing mL/min Estimated GFR (MDRD) ml/min Glucose (74-106) mg/dL POC Glucose 152 H 252 H 245 H (70-99) mg/dL Calcium (8.5-10.1) mg/dL 09/18/20 09/18/20 09/18/20 Range/Units 05:25 05:25 06:31 WBC 20.49 H (4.0-11.0) K/uL RBC 4.01 L (4.30-5.90) M/uL Hgb 12.2 (12.0-16.0) g/dL Hct 38.6 (36.0-46.0) % MCV 96.3 (80.0-98.0) fL MCH 30.4 (27.0-32.0) pg MCHC 31.6 (31.0-37.0) g/dL RDW Std Deviation 56.9 (28.0-62.0) fl RDW Coeff of Greg 16 H (11.0-15.0) % Plt Count 306 (150-400) K/uL MPV 8.80 (7.40-12.00) fL Neut % (Auto) 92.2 H (48.0-80.0) % Lymph % (Auto) 3.7 L (16.0-40.0) % [place] % (Auto) 4.1 (0.0-15.0) % Eos % (Auto) 0.0 (0.0-7.0) % Baso % (Auto) 0.0 (0.0-1.5) % Neut # (Auto) 18.9 H (1.4-5.7) K/uL Lymph # (Auto) 0.8 (0.6-2.4) K/uL [place] # (Auto) 0.9 H (0.0-0.8) K/uL Eos # (Auto) 0.0 (0.0-0.7) K/uL Baso # (Auto) 0.0 (0.0-0.1) K/uL Nucleated RBC % 0.0 /100WBC Nucleated RBCs # 0 K/uL Sodium 141 (136-145) mmol/L Potassium 4.5 (3.5-5.1) mmol/L Chloride 105 (98-107) mmol/L Carbon Dioxide 27.7 (21.0-32.0) mmol/L BUN 16 (7.0-18.0) mg/dL Creatinine 1.0 (0.6-1.0) mg/dL Est Cr Clr Drug Dosing 48.53 mL/min Estimated GFR (MDRD) 57.8 ml/min Glucose 201 H (74-106) mg/dL POC Glucose 198 H (70-99) mg/dL Calcium 8.7 (8.5-10.1) mg/dL 09/18/20 Range/Units 11:19 WBC (4.0-11.0) K/uL RBC (4.30-5.90) M/uL Hgb (12.0-16.0) g/dL Hct (36.0-46.0) % MCV (80.0-98.0) fL MCH (27.0-32.0) pg MCHC (31.0-37.0) g/dL RDW Std Deviation (28.0-62.0) fl RDW Coeff of Greg (11.0-15.0) % Plt Count (150-400) K/uL MPV (7.40-12.00) fL Neut % (Auto) (48.0-80.0) % Lymph % (Auto) (16.0-40.0) % [place] % (Auto) (0.0-15.0) % Eos % (Auto) (0.0-7.0) % Baso % (Auto) (0.0-1.5) % Neut # (Auto) (1.4-5.7) K/uL Lymph # (Auto) (0.6-2.4) K/uL [place] # (Auto) (0.0-0.8) K/uL Eos # (Auto) (0.0-0.7) K/uL Baso # (Auto) (0.0-0.1) K/uL Nucleated RBC % /100WBC Nucleated RBCs # K/uL Sodium (136-145) mmol/L Potassium (3.5-5.1) mmol/L Chloride (98-107) mmol/L Carbon Dioxide (21.0-32.0) mmol/L BUN (7.0-18.0) mg/dL Creatinine (0.6-1.0) mg/dL Est Cr Clr Drug Dosing mL/min Estimated GFR (MDRD) ml/min Glucose (74-106) mg/dL POC Glucose 215 H (70-99) mg/dL Calcium (8.5-10.1) mg/dL Result Diagrams: 09/18/20 05:25 09/18/20 05:25 Sepsis Event Note - Evaluation Sepsis Screening Result: No Definite Risk - Focused Exam Vital Signs: Vital Signs Temp Pulse Resp BP BP Pulse Ox Pulse Ox 09/18/20 11:00 36.3 C 65 16 134/65 94 L 09/18/20 07:50 36.6 C 72 16 127/58 L 95 09/18/20 05:00 36.2 C 63 16 124/58 L 94 L 94 L - Problem List Review Problem List Initiated/Reviewed/Updated: Yes - My Orders Last 24 Hours: My Active Orders 09/18/20 12:22 CXR [Chest 1V Frontal] [CR] Routine 09/18/20 12:24 Ketorolac [Toradol] 15 mg IVPUSH ONETIME ONE 09/18/20 21:00 Patient's Own Medication [Ptom] 1 each PO BEDTIME - Plan Plan:: 55 yo female admitted for COPD exacerbation COPD exacerbation: cont duonebs, solumedrol, azithromycin, will repeat CXR, leucocytosis likely due to steroids but will obtain cxr Acute on chronic respiratory failure: wean supplemental oxygen as tolerated DM: Levemir plus sliding scale insulin. cont home meds acute headache, likely tension headache, 1 dose of Toradol, Benadryl
--- NOTE | 2020-09-18 14:16 | CR ---
INDICATION: Cough. Leukocytosis. TECHNIQUE: Chest 1 views COMPARISON: September 16, 2020. FINDINGS: Cardiovascular and mediastinum: Heart size and vasculature are normal in caliber and appearance. Lungs and pleural spaces: Lungs are clear. No sign of infiltrate or mass. No sign of pleural effusion. No pneumothorax. Bones and soft tissues: No significant findings. IMPRESSION: No acute findings and no significant changes from the prior exam. Dictated by Enrike Trinidad MD @ 09/18/2020 2:14:[address] Enrike Trinidad @ Sep 18 2020 2:14PM
[2020-09-18] MEDS ORDERED: diphenhydrAMINE 50 MG/ML SDV ONE (15:19)
[2020-09-18] MEDS ORDERED: Ketorolac 15 MG/ML SDV ONE (15:20)
[2020-09-18] MEDS ORDERED: LORazepam 2 MG/ML SDV ONE (15:21)
[2020-09-18] MEDS: Gabapentin 300 MG Cap PO SCH ×2 (15:27→21:09)
[2020-09-18] MEDS ORDERED: Desvenlafaxine Succinate [Pristiq] 50 MG Tab.Er.24h PO SCH (21:00)
[2020-09-18] MEDS: Enoxaparin 40 MG/0.4 ML Syringe SUBCUT SCH (21:05)
[2020-09-18] MEDS: Insulin Detemir 100 Units/ML 3 ML Pen SUBCUT SCH (21:07)
[2020-09-19] MEDS: Albuterol/Ipratropium 3.0-0.5 MG/3 ML Neb Soln NEB SCH ×2 (05:15→11:18)
[2020-09-19] MEDS: Levothyroxine 25 MCG Tab PO SCH (06:37)
[2020-09-19] MEDS: Levothyroxine 112 MCG Tab PO SCH (06:38)
[2020-09-19] MEDS: Gabapentin 300 MG Cap PO SCH ×2 (06:38→13:46)
[2020-09-19 06:47] LABS: CARBON DIOXIDE,CO2 28.4 mmol/L (21.0-32.0); POTASSIUM,K 4.1 mmol/L (3.5-5.1)
[2020-09-19] MEDS: Azithromycin 500 MG in Sodium Chloride 0.9% 250 ML IV SCH (08:05)
[2020-09-19] MEDS: methylPREDNISolone Sodium Succinate 125 MG/2 ML SDV IVPUSH SCH (08:44)
[2020-09-19] MEDS: Insulin Aspart 100 Units/ML 3 ML Pen SUBCUT SCH ×2 (08:44→11:51)
[2020-09-19] MEDS: Phosphorus #1 250 MG Tab PO SCH ×2 (08:56→11:46)
[2020-09-19] MEDS ORDERED: Fluticasone/Umeclidin/Vilanter [Trelegy Ellipta 100-62.5- INH SCH (09:00)
[2020-09-19] MEDS ORDERED: Ketorolac 15 MG/ML SDV IVPUSH ONE (10:49)
[2020-09-19 12:00] VITALS: PULSE 86
--- NOTE | 2020-09-19 12:48 | PCM.DCSUM1 ---
Discharge Summary - Hospital Course Free Text/Narrative:: 55 yo female with pmh of COPD exacerbation who presents with several day history of shortness of breath, wheezing and productive cough. Patient is on home O2 as needed but for last few days she has been needing continuous oxygen while resting and upon ambulation as well. IN the ED she was noted to be requring 5L NC to keep sats above 90%. She was give soulemdrol, duonebs, and azithromycin with improvement in her symptoms. Patient was admitted to the hospital for further management. Chest x-ray did not show any consolidation or infiltrate, supportive care was provided, patient was continued on nasal cannula to maintain pulse ox more than 88%, IV steroids were continued, patient was also started on IV azithromycin. Patient also received IV Toradol and Benadryl for acute onset of headache which eventually resolved with medication. Incentive spirometry was implemented. Repeat chest x-ray was obtained which was negative for any concern for of infiltrate/consolidation. Patient was slowly weaned off the oxygen to 1 to 2 L upon ambulation and room air on rest. Patient was feeling much better and was keen on getting discharged. Patient was discharged home on oral steroids as well as 2 more days of azithromycin. Patient was recommended to continue her daily inhalers and keep 2 L of oxygen on upon ambulation. Patient was recommended to follow-up with her primary care provider upon discharge. Diagnosis: Stroke: No - Discharge Data Discharge Date: 09/19/20 Discharge Disposition: Home, Self-Care 01 Condition: Good - Referral to Home Health Primary Care Physician: PCP None - Discharge Plan *PRESCRIPTION DRUG MONITORING PROGRAM REVIEWED*: No *COPY OF PRESCRIPTION DRUG MONITORING REPORT IN PATIENT МАРИНА: No Prescriptions/Med Rec: Fluticasone Furoate [Arnuity Ellipta] 1 inh IH DAILY #1 inhaler Azithromycin 250 mg PO DAILY #2 tablet predniSONE [Prednisone] 40 mg PO DAILY 3 Days #6 tablet Acetaminophen [Tylenol] 650 mg PO Q6H PRN #15 tablet PRN Reason: Pain Home Medications: Home Meds Levothyroxine 0.137 mcg PO ACBREAKFAST 04/29/15 [History] Insulin Detemir [Levemir] 55 unit SUBCUT BEDTIME 01/25/20 [History] Pioglitazone [Actos] 15 mg PO DAILY 01/25/20 [History] Albuterol Sulfate [Albuterol Sulfate HFA] 1 puff INH Q4HR PRN 09/16/20 [History] Desvenlafaxine Succinate [Pristiq] 50 mg PO BEDTIME 09/16/20 [History] Diclofenac Sodium [Voltaren] 1 tab PO TID 09/16/20 [History] Fluticasone/Umeclidin/Vilanter [Trelegy Ellipta 100-62.5-25] 1 puff INH DAILY 09/16/20 [History] Gabapentin [Neurontin] 600 mg PO TID 09/17/20 [History] Acetaminophen [Tylenol] 650 mg PO Q6H PRN #15 tablet 09/19/20 [Rx] Azithromycin 250 mg PO DAILY #2 tablet 09/19/20 [Rx] Fluticasone Furoate [Arnuity Ellipta] 1 inh IH DAILY #1 inhaler 09/19/20 [Rx] predniSONE [Prednisone] 40 mg PO DAILY 3 Days #6 tablet 09/19/20 [Rx] Patient Handouts: Pursed Lip Breathing Forms: ED Department Discharge Referrals: Rae Verdugo MD [Physician] - - Discharge Summary/Plan Comment DC Time >30 min.: No - Patient Data Vitals - Most Recent: Last Vital Signs Temp 37.3 C 09/19/20 11:57 Pulse 86 09/19/20 11:57 Resp 20 09/19/20 11:57 BP 159/72 H 09/19/20 11:57 Pulse Ox 91 L 09/19/20 11:57 Weight - Most Recent: 94.3 kg I&O - Last 24 hours: Intake & Output 09/18/20 09/19/20 09/19/20 22:59 06:59 14:59 Intake Total 720 620 Output Total 700 200 Balance 20 420 Lab Results - Last 24 hrs: Laboratory Results - last 24 hr 09/18/20 09/18/20 09/19/20 Range/Units 16:44 21:02 05:44 WBC 15.44 H (4.0-11.0) K/uL RBC 4.07 L (4.30-5.90) M/uL Hgb 12.5 (12.0-16.0) g/dL Hct 39.2 (36.0-46.0) % MCV 96.3 (80.0-98.0) fL MCH 30.7 (27.0-32.0) pg MCHC 31.9 (31.0-37.0) g/dL RDW Std Deviation 56.5 (28.0-62.0) fl RDW Coeff of Greg 16 H (11.0-15.0) % Plt Count 322 (150-400) K/uL MPV 9.20 (7.40-12.00) fL Neut % (Auto) 92.5 H (48.0-80.0) % Lymph % (Auto) 4.2 L (16.0-40.0) % [place] % (Auto) 3.1 (0.0-15.0) % Eos % (Auto) 0.1 (0.0-7.0) % Baso % (Auto) 0.1 (0.0-1.5) % Neut # (Auto) 14.3 H (1.4-5.7) K/uL Lymph # (Auto) 0.7 (0.6-2.4) K/uL [place] # (Auto) 0.5 (0.0-0.8) K/uL Eos # (Auto) 0.0 (0.0-0.7) K/uL Baso # (Auto) 0.0 (0.0-0.1) K/uL Nucleated RBC % 0.0 /100WBC Nucleated RBCs # 0 K/uL Sodium (136-145) mmol/L Potassium (3.5-5.1) mmol/L Chloride (98-107) mmol/L Carbon Dioxide (21.0-32.0) mmol/L BUN (7.0-18.0) mg/dL Creatinine (0.6-1.0) mg/dL Est Cr Clr Drug Dosing mL/min Estimated GFR (MDRD) ml/min Glucose (74-106) mg/dL POC Glucose 150 H 197 H (70-99) mg/dL Calcium (8.5-10.1) mg/dL Phosphorus (2.6-4.7) mg/dL Magnesium (1.8-2.4) mg/dL 09/19/20 09/19/20 09/19/20 Range/Units 05:44 06:34 11:45 WBC (4.0-11.0) K/uL RBC (4.30-5.90) M/uL Hgb (12.0-16.0) g/dL Hct (36.0-46.0) % MCV (80.0-98.0) fL MCH (27.0-32.0) pg MCHC (31.0-37.0) g/dL RDW Std Deviation (28.0-62.0) fl RDW Coeff of Greg (11.0-15.0) % Plt Count (150-400) K/uL MPV (7.40-12.00) fL Neut % (Auto) (48.0-80.0) % Lymph % (Auto) (16.0-40.0) % [place] % (Auto) (0.0-15.0) % Eos % (Auto) (0.0-7.0) % Baso % (Auto) (0.0-1.5) % Neut # (Auto) (1.4-5.7) K/uL Lymph # (Auto) (0.6-2.4) K/uL [place] # (Auto) (0.0-0.8) K/uL Eos # (Auto) (0.0-0.7) K/uL Baso # (Auto) (0.0-0.1) K/uL Nucleated RBC % /100WBC Nucleated RBCs # K/uL Sodium 140 (136-145) mmol/L Potassium 4.1 (3.5-5.1) mmol/L Chloride 104 (98-107) mmol/L Carbon Dioxide 28.4 (21.0-32.0) mmol/L BUN 20 H (7.0-18.0) mg/dL Creatinine 1.0 (0.6-1.0) mg/dL Est Cr Clr Drug Dosing 48.53 mL/min Estimated GFR (MDRD) 57.8 ml/min Glucose 293 H (74-106) mg/dL POC Glucose 263 H 264 H (70-99) mg/dL Calcium 8.7 (8.5-10.1) mg/dL Phosphorus 2.2 L (2.6-4.7) mg/dL Magnesium 1.9 (1.8-2.4) mg/dL Med Orders - Current: Current Medications Acetaminophen (Acetaminophen 325 Mg Tab) 650 mg PO Q6H PRN PRN Reason: Pain Last Admin: 09/18/20 05:14 Dose: 650 mg Documented by: Albuterol/Ipratropium (Albuterol/Ipratropium 3.0-0.5 Mg/3 Ml Neb Soln) 3 ml NEB Q6HRRT [facility] Last Admin: 09/19/20 11:18 Dose: 3 ml Documented by: Albuterol/Ipratropium (Albuterol/Ipratropium 3.0-0.5 Mg/3 Ml Neb Soln) 3 ml NEB Q2H PRN PRN Reason: Shortness Of Breath/wheezing Last Admin: 09/18/20 00:08 Dose: 3 ml Documented by: Dextrose/Water (50% Dextrose In Water 50 Ml Syringe) 50 ml IVPUSH ASDIRECTED PRN PRN Reason: Hypoglycemia Enoxaparin Sodium (Enoxaparin 40 Mg/0.4 Ml Syringe) 40 mg SUBCUT Q24H [facility] Last Admin: 09/18/20 21:05 Dose: 40 mg Documented by: Gabapentin (Gabapentin 300 Mg Cap) 600 mg PO TID [facility] Last Admin: 09/19/20 06:38 Dose: 600 mg Documented by: Glucagon (Glucagon,Human Recombinant 1 Mg Vial) 1 mg IM ASDIRECTED PRN PRN Reason: Hypoglycemia Azithromycin 500 mg/ Sodium (Chloride) 250 mls @ 250 mls/hr IV DAILY [facility] Last Admin: 09/19/20 08:05 Dose: 250 mls/hr Documented by: Ibuprofen (Ibuprofen 400 Mg Tab) 400 mg PO Q6H PRN PRN Reason: Pain Last Admin: 09/18/20 10:07 Dose: 400 mg Documented by: Insulin Aspart (Insulin Aspart 100 Units/Ml 3 Ml Pen) 0 unit SUBCUT TIDAC [facility]; Protocol Last Admin: 09/19/20 11:51 Dose: 6 units Documented by: Insulin Detemir (Insulin Detemir 100 Units/Ml 3 Ml Pen) 55 unit SUBCUT BEDTIME [facility] Last Admin: 09/18/20 21:07 Dose: 55 units Documented by: Levothyroxine Sodium (Levothyroxine 112 Mcg Tab) 112 mcg PO ACBREAKFAST [facility] Last Admin: 09/19/20 06:38 Dose: 112 mcg Documented by: Levothyroxine Sodium (Levothyroxine 25 Mcg Tab) 25 mcg PO ACBREAKFAST [facility] Last Admin: 09/19/20 06:37 Dose: 25 mcg Documented by: Methylprednisolone Sodium Succinate (Methylprednisolone Sodium Succinate 125 Mg/2 Ml Sdv) 125 mg IVPUSH Q12H [facility] Last Admin: 09/19/20 08:44 Dose: 125 mg Documented by: Desvenlafaxine Succinate [Pristiq] 50 Mg Tab.Er.24h 1 each PO BEDTIME [facility] Last Admin: 09/18/20 22:03 Dose: Not Given Documented by: Fluticasone/Umeclidin/Vilanter [ Trelegy Ellipta 100- 62.5- 1 each INH DAILY [facility] Sodium Chloride (Sodium Chloride 0.9% 2.5 Ml Syringe) 2.5 ml FLUSH ASDIRECTED PRN PRN Reason: Keep Vein Open Last Admin: 09/16/20 10:40 Dose: 2.5 ml Documented by: Sodium Chloride (Sodium Chloride 0.9% 10 Ml Syringe) 10 ml FLUSH ASDIRECTED PRN PRN Reason: Keep Vein Open Last Admin: 09/16/20 10:40 Dose: 10 ml Documented by: Sodium Phosphate (Phosphorus #1 250 Mg Tab) 250 mg PO QID [facility] Last Admin: 09/19/20 11:46 Dose: 250 mg Documented by: Discontinued Medications Albuterol/Ipratropium (Albuterol/Ipratropium 3.0-0.5 Mg/3 Ml Neb Soln) 3 ml NEB ONETIME ONE Stop: 09/16/20 10:38 Last Admin: 09/16/20 10:41 Dose: 3 ml Documented by: Albuterol/Ipratropium (Albuterol/Ipratropium 3.0-0.5 Mg/3 Ml Neb Soln) 3 ml NEB ONETIME ONE Stop: 09/16/20 10:38 Last Admin: 09/16/20 10:41 Dose: 3 ml Documented by: Albuterol/Ipratropium (Albuterol/Ipratropium 3.0-0.5 Mg/3 Ml Neb Soln) 3 ml NEB ONETIME ONE Stop: 09/16/20 10:38 Last Admin: 09/16/20 10:41 Dose: 3 ml Documented by: Albuterol/Ipratropium (Albuterol/Ipratropium 3.0-0.5 Mg/3 Ml Neb Soln) 3 ml NEB Q6HRRT PRN PRN Reason: Shortness of Breath Diphenhydramine HCl (Diphenhydramine 50 Mg/Ml Sdv) 25 mg IVPUSH ONETIME ONE Stop: 09/18/20 12:24 Last Admin: 09/18/20 15:26 Dose: 25 mg Documented by: Diphenhydramine HCl (Diphenhydramine 50 Mg/Ml Sdv) Confirm Administered Dose 50 mg .ROUTE .STK-MED ONE Stop: 09/18/20 15:20 Last Admin: 09/18/20 15:37 Dose: Not Given Documented by: Enoxaparin Sodium (Enoxaparin 40 Mg/0.4 Ml Syringe) 40 mg SUBCUT Q24H [facility] Last Admin: 09/16/20 21:00 Dose: Not Given Documented by: Azithromycin 500 mg/ Sodium (Chloride) 250 mls @ 250 mls/hr IV ONETIME [facility] Last Admin: 09/16/20 13:40 Dose: 250 mls/hr Documented by: Ketorolac Tromethamine (Ketorolac 15 Mg/Ml Sdv) 15 mg IVPUSH ONETIME ONE Stop: 09/18/20 12:25 Last Admin: 09/18/20 15:26 Dose: 15 mg Documented by: Ketorolac Tromethamine (Ketorolac 15 Mg/Ml Sdv) Confirm Administered Dose 15 mg .ROUTE .STK-MED ONE Stop: 09/18/20 15:21 Last Admin: 09/18/20 15:37 Dose: Not Given Documented by: Ketorolac Tromethamine (Ketorolac 15 Mg/Ml Sdv) 15 mg IVPUSH ONETIME ONE Stop: 09/19/20 10:50 Last Admin: 09/19/20 11:46 Dose: 15 mg Documented by: Levothyroxine Sodium (Levothyroxine 112 Mcg Tab) 0 mcg PO ACBREAKFAST [facility] Last Admin: 09/17/20 06:33 Dose: 112 mcg Documented by: Levothyroxine Sodium (Levothyroxine 25 Mcg Tab) 0 mcg PO ACBREAKFAST [facility] Last Admin: 09/17/20 06:32 Dose: 25 mcg Documented by: Lorazepam (Lorazepam 2 Mg/Ml Sdv) 0.5 mg IVPUSH ONETIME ONE Stop: 09/18/20 12:24 Last Admin: 09/18/20 15:25 Dose: 0.5 mg Documented by: Lorazepam (Lorazepam 2 Mg/Ml Sdv) Confirm Administered Dose 2 mg .ROUTE .STK-MED ONE Stop: 09/18/20 15:22 Last Admin: 09/18/20 15:37 Dose: Not Given Documented by: Methylprednisolone Sodium Succinate (Methylprednisolone Sodium Succinate 125 Mg/2 Ml Sdv) 125 mg IVPUSH ONETIME ONE Stop: 09/16/20 10:38 Last Admin: 09/16/20 10:41 Dose: 125 mg Documented by:
[2020-09-19 14:38] VITALS: BP 180/85
== END 2020-09-19 04:30 | disposition home or self-care (01) | DRG 133 ==
LOC: MW.ED 10:10 → MW.MS 12:54 → OBSVTOIN 17:38 → MW.MS 17:39
PROVIDERS: ADMIT Internal Medicine; ATTEND Internal Medicine
DX: J96.20 Acute and chronic respiratory failure, unspecified whether with hypoxia or hypercapnia (principal); J44.1 Chronic obstructive pulmonary disease with (acute) exacerbation; H54.7 Unspecified visual loss; F32.9 Major depressive disorder, single episode, unspecified; E11.9 Type 2 diabetes mellitus without complications; E66.9 Obesity, unspecified; E03.9 Hypothyroidism, unspecified; Z86.16 Personal history of COVID-19; Z90.49 Acquired absence of other specified parts of digestive tract; Z79.890 Hormone replacement therapy; Z79.52 Long term (current) use of systemic steroids; Z79.899 Other long term (current) drug therapy; Z88.6 Allergy status to analgesic agent; Z87.01 Personal history of pneumonia (recurrent); Z88.1 Allergy status to other antibiotic agents; Z88.5 Allergy status to narcotic agent; Z88.8 Allergy status to other drugs, medicaments and biological substances; Z88.2 Allergy status to sulfonamides; Z79.4 Long term (current) use of insulin; Z87.891 Personal history of nicotine dependence; Z68.39 Body mass index [BMI] 39.0-39.9, adult; Z20.822 Contact with and (suspected) exposure to COVID-19
CPT/HCPCS: 36415; 71045; 71045-26; 80048; 80053; 82947; 83735; 83880; 84100; 84484; 85025; 85379; 93005; 93010; 94640; 96365; 96375; 99284; 99285-25; A9270-GY; J0456; J1200; J1650; J1815-GY; J1885; J2060; J2930; J7050; J7620-GY; U0002

== ENCOUNTER 2021-06-08 14:19 | Emergency (ER) | payer BC ==
[2021-06-08 15:21] VITALS: BP 125/65; PULSE 72
[2021-06-08 15:26] LABS: POTASSIUM,K 4.5 mmol/L (3.5-5.1)
== END 2021-06-08 16:07 | disposition left against medical advice (07) ==
LOC: MW.ED 14:19
DX: Z53.21 Procedure and treatment not carried out due to patient leaving prior to being seen by health care provider (principal)
CPT/HCPCS: 36415; 80053; 83690; 85025

== ENCOUNTER 2021-06-17 19:46 | Emergency (ER) | payer BC ==
[2021-06-17 20:03] VITALS: BP 129/60; PULSE 78
== END 2021-06-17 20:20 | disposition home or self-care (01) ==
LOC: MW.ED 19:46
DX: L03.311 Cellulitis of abdominal wall (principal); J44.9 Chronic obstructive pulmonary disease, unspecified; E11.9 Type 2 diabetes mellitus without complications; E66.9 Obesity, unspecified; Z68.38 Body mass index [BMI] 38.0-38.9, adult; Z88.1 Allergy status to other antibiotic agents; Z88.8 Allergy status to other drugs, medicaments and biological substances; Z88.2 Allergy status to sulfonamides; Z79.899 Other long term (current) drug therapy; Z79.4 Long term (current) use of insulin
CPT/HCPCS: 99282; 99283

== ENCOUNTER 2021-10-19 15:06 | Emergency (ER) | payer BC ==
[2021-10-19] MEDS ORDERED: Albuterol/Ipratropium 3.0-0.5 MG/3 ML Neb Soln NEB ONE (17:21)
[2021-10-19] MEDS ORDERED: Albuterol/Ipratropium 3.0-0.5 MG/3 ML Neb Soln ONE (17:53)
[2021-10-19 18:26] LABS: CARBON DIOXIDE,CO2 28.2 mmol/L (21.0-32.0)
[2021-10-19 18:47] VITALS: BP 118/65; PULSE 76
== END 2021-10-19 18:53 | disposition home or self-care (01) ==
LOC: MW.ED 15:06
DX: R07.89 Other chest pain (principal); I10 Essential (primary) hypertension; J44.9 Chronic obstructive pulmonary disease, unspecified; E11.9 Type 2 diabetes mellitus without complications; E66.9 Obesity, unspecified; Z68.35 Body mass index [BMI] 35.0-35.9, adult; Z86.16 Personal history of COVID-19; Z88.1 Allergy status to other antibiotic agents; Z88.2 Allergy status to sulfonamides; Z88.5 Allergy status to narcotic agent; Z88.8 Allergy status to other drugs, medicaments and biological substances; Z79.899 Other long term (current) drug therapy; Z79.4 Long term (current) use of insulin; Z20.822 Contact with and (suspected) exposure to COVID-19
CPT/HCPCS: 36415; 71045; 71045-26; 80053; 84439; 84443; 84484; 85025; 86140; 93005; 93010; 94640; 99284; 99285; J7620-GY; U0002

== ENCOUNTER 2021-11-05 00:16 | Emergency (ER) | payer BC | END 2021-11-05 00:27 | disposition left against medical advice (07) | LOC: MW.ED 00:16 | DX: Z53.21 Procedure and treatment not carried out due to patient leaving prior to being seen by health care provider (principal) ==

== ENCOUNTER 2022-02-25 16:04 | Emergency (ER) | payer BC ==
[2022-02-25] MEDS ORDERED: methylPREDNISolone Sodium Succinate 125 MG/2 ML SDV IVPUSH ONE (16:19)
[2022-02-25] MEDS ORDERED: Albuterol/Ipratropium 3.0-0.5 MG/3 ML Neb Soln NEB STA (16:19)
[2022-02-25 16:46] LABS: CARBON DIOXIDE,CO2 30.3 mmol/L (21.0-32.0); POTASSIUM,K 4.1 mmol/L (3.5-5.1)
[2022-02-25] MEDS ORDERED: Magnesium Sulfate/Water 2 GM in Premix Bag 1 BAG IV ONE (17:17)
[2022-02-25 17:20] LABS: CORONAVIRUS COVID-19 NAA NEGATIVE (NEGATIVE); INFLUENZA A NAA NEGATIVE (NEGATIVE); INFLUENZA B NAA NEGATIVE (NEGATIVE); RESPIRATORY SYNCYTIAL VIR NAA NEGATIVE (NEGATIVE)
[2022-02-25] MEDS ORDERED: Azithromycin 250 MG Tab PO STA (18:35)
[2022-02-25 19:28] VITALS: BP 108/60; PULSE 82
== END 2022-02-25 19:26 | disposition home or self-care (01) ==
LOC: MW.ED 16:04
DX: J44.1 Chronic obstructive pulmonary disease with (acute) exacerbation (principal); E11.9 Type 2 diabetes mellitus without complications; E66.9 Obesity, unspecified; Z68.35 Body mass index [BMI] 35.0-35.9, adult; Z88.6 Allergy status to analgesic agent; Z88.1 Allergy status to other antibiotic agents; Z88.5 Allergy status to narcotic agent; Z88.8 Allergy status to other drugs, medicaments and biological substances; Z88.2 Allergy status to sulfonamides; Z79.4 Long term (current) use of insulin; Z79.899 Other long term (current) drug therapy; Z20.822 Contact with and (suspected) exposure to COVID-19
CPT/HCPCS: 0241U; 36415; 71045; 80053; 83605; 83735; 85025; 85610; 87040; 87077; 87154; 87186; 93005; 96365; 96366; 96375; 99285; A9270; J2930; J3475; J7620-GY

== ENCOUNTER 2022-11-21 11:46 | Emergency (ER) | payer BC, OTHER ==
[2022-11-21] MEDS ORDERED: methylPREDNISolone Sodium Succinate 125 MG/2 ML SDV IVPUSH ONE (12:27)
[2022-11-21] MEDS ORDERED: Albuterol/Ipratropium 3.0-0.5 MG/3 ML Neb Soln NEB ONE (12:27)
[2022-11-21 12:54] LABS: BASOPHILS ABSOLUTE AUTO 0.1 K/uL (0.0-0.1); BASOPHILS PERCENT AUTO 0.5 % (0.0-1.5); EOSINOPHILS ABSOLUTE AUTO 0.2 K/uL (0.0-0.7); EOSINOPHILS PERCENT AUTO 1.8 % (0.0-7.0); HEMATOCRIT 41.5 % (36.0-46.0); HEMOGLOBIN 13.3 g/dL (12.0-16.0); LYMPHOCYTES ABSOLUTE AUTO 1.8 K/uL (0.6-2.4); LYMPHOCYTES PERCENT AUTO 17.4 % (16.0-40.0); MEAN CORPUSCULAR HEMOGLOBIN 32.1 pg (27.0-32.0); MEAN CORPUSCULAR VOLUME 100.2 fL (80.0-98.0); MONOCYTES ABSOLUTE AUTO 1.2 K/uL (0.0-0.8); MONOCYTES PERCENT AUTO 11.6 % (0.0-15.0); NEUTROPHILS ABSOLUTE AUTO 7.1 K/uL (1.4-5.7); NEUTROPHILS PERCENT AUTO 68.7 % (48.0-80.0); NRBC ABSOLUTE 0 K/uL; PLATELET COUNT,PLT 258 K/uL (150-400); RED BLOOD CELL COUNT 4.14 M/uL (4.30-5.90); WHITE BLOOD CELL COUNT,WBC 10.38 K/uL (4.0-11.0)
[2022-11-21 13:08] LABS: PH,VENOUS 7.42 (7.31-7.41)
[2022-11-21 13:21] LABS: CORONAVIRUS COVID-19 NAA NEGATIVE (NEGATIVE); INFLUENZA A NAA NEGATIVE (NEGATIVE); INFLUENZA B NAA NEGATIVE (NEGATIVE)
[2022-11-21 13:23] LABS: A/G RATIO 0.9 (0.9-1.6); ALBUMIN 3.5 g/dL (3.4-5.0); BILIRUBIN TOTAL 0.4 mg/dL (0.2-1.0); C-REACTIVE PROTEIN 0.6 mg/dL (0.00-0.90); CALCIUM 9.1 mg/dL (8.5-10.1); CARBON DIOXIDE,CO2 28.8 mmol/L (21.0-32.0); CREATININE 1.3 mg/dL (0.6-1.0); EST CRCL DRUG DOSING (CG) 34.71 mL/min; MAGNESIUM 2.2 mg/dL (1.8-2.4); POTASSIUM,K 4.4 mmol/L (3.5-5.1); PROTEIN TOTAL,TP 7.4 g/dL (6.4-8.2)
[2022-11-21 15:28] VITALS: BP 100/55; PULSE 68
== END 2022-11-21 14:24 | disposition home or self-care (01) ==
LOC: MW.ED 11:46
DX: J44.9 Chronic obstructive pulmonary disease, unspecified (principal); J45.909 Unspecified asthma, uncomplicated; E11.9 Type 2 diabetes mellitus without complications; E66.9 Obesity, unspecified; Z20.822 Contact with and (suspected) exposure to COVID-19; Z88.1 Allergy status to other antibiotic agents; Z88.8 Allergy status to other drugs, medicaments and biological substances; Z88.5 Allergy status to narcotic agent; Z88.2 Allergy status to sulfonamides; Z68.39 Body mass index [BMI] 39.0-39.9, adult
CPT/HCPCS: 0240U; 36415; 71045; 80053; 82803; 83735; 84484; 85025; 85379; 86140; 93005; 96374; 99285; J2930; 93010; 99284; J7620-GY

== ENCOUNTER 2023-03-17 15:09 | Inpatient (IN) | payer BC, OTHER ==
[2023-03-17 15:30] LABS: BASOPHILS ABSOLUTE AUTO 0.05 K/uL (0.00-0.20); BASOPHILS PERCENT AUTO 0.6 % (0.0-1.0); EOSINOPHILS ABSOLUTE AUTO 0.02 K/uL (0.00-0.45); EOSINOPHILS PERCENT AUTO 0.2 % (0.0-6.0); HEMOGLOBIN 13.8 g/dL (12.0-16.0); IMMATURE GRAN ABSOLUTE AUTO 0.07 K/uL (0.00-0.05); IMMATURE GRAN PERCENT AUTO 0.8 % (0.0-0.4); LYMPHOCYTES ABSOLUTE AUTO 0.85 K/uL (1.00-4.80); LYMPHOCYTES PERCENT AUTO 9.5 % (24.0-44.0); MEAN CORPUSCULAR HEMOGLOBIN 31.4 pg (28.0-32.0); MEAN CORPUSCULAR HGB CONC 32.1 g/dL (32.0-36.0); MEAN CORPUSCULAR VOLUME 97.7 fL (83.0-99.0); MEAN PLATELET VOLUME 8.4 fL (9.4-12.3); MONOCYTES ABSOLUTE AUTO 1.58 K/uL (0.00-0.80); MONOCYTES PERCENT AUTO 17.6 % (0.0-8.0); NEUTROPHILS ABSOLUTE AUTO 6.42 K/uL (1.80-7.70); NEUTROPHILS PERCENT AUTO 71.3 % (41.0-71.0); PLATELET COUNT,PLT 200 K/uL (150-400); WHITE BLOOD CELL COUNT,WBC 8.99 K/uL (3.9-11.3)
[2023-03-17] MEDS ORDERED: Albuterol/Ipratropium 3.0-0.5 MG/3 ML Neb Soln NEB ONE (15:31)
[2023-03-17] MEDS ORDERED: methylPREDNISolone Sodium Succinate 125 MG/2 ML SDV IVPUSH ONE (15:31)
[2023-03-17 15:33] LABS: BASE EXCESS VENOUS 3.3 (-2.0-3.0); BICARBONATE,VENOUS 30 mEq/L (23-28); PCO2 VENOUS 53 mmHG (41-51); PH,VENOUS 7.36 (7.31-7.41)
[2023-03-17 15:34] LABS: PO2 VENOUS < 30 mmHG
[2023-03-17] MEDS ORDERED: Ketorolac 30 MG/ML SDV IVPUSH ONE (15:49)
[2023-03-17 16:00] LABS: A/G RATIO 0.8 (0.9-1.6); ALBUMIN 3.6 g/dL (3.4-5.0); BILIRUBIN TOTAL 0.2 mg/dL (0.2-1.0); CALCIUM 9.4 mg/dL (8.5-10.1); CARBON DIOXIDE,CO2 29.2 mmol/L (21.0-32.0); CREATININE 1.1 mg/dL (0.6-1.0); EST CRCL DRUG DOSING (CG) 40.53 mL/min; POTASSIUM,K 4.1 mmol/L (3.5-5.1); PROTEIN TOTAL,TP 8.2 g/dL (6.4-8.2)
[2023-03-17] MEDS ORDERED: Acetaminophen 500 MG Tab PO ONE (16:03)
[2023-03-17 16:11] LABS: CORONAVIRUS COVID-19 NAA NEGATIVE (NEGATIVE); INFLUENZA A NAA POSITIVE (NEGATIVE); INFLUENZA B NAA NEGATIVE (NEGATIVE); RESPIRATORY SYNCYTIAL VIR NAA NEGATIVE (NEGATIVE)
[2023-03-17] MEDS ORDERED: Oseltamivir 75 MG Cap PO ONE (17:02)
[2023-03-17] MEDS ORDERED: Ondansetron 4 MG/2 ML SDV IVPUSH PRN (17:50)
[2023-03-17] MEDS ORDERED: Albuterol/Ipratropium 3.0-0.5 MG/3 ML Neb Soln NEB PRN (17:50)
[2023-03-17] MEDS ORDERED: 50% Dextrose in Water 50 ML Syringe IVPUSH PRN (17:57)
[2023-03-17] MEDS ORDERED: Glucagon,Human Recombinant 1 MG Vial IM PRN (17:57)
[2023-03-17] MEDS: Acetaminophen 325 MG Tab PO PRN (20:59)
[2023-03-17] MEDS: Albuterol 0.083% 2.5 MG/3 ML Neb Soln NEB SCH ×2 (22:21→22:51)
[2023-03-17] MEDS: Nicotine 7 MG/24 Hr Patch TRDERM SCH (22:38)
[2023-03-17] MEDS: Losartan 50 MG Tab PO SCH (22:39)
[2023-03-17] MEDS: Levofloxacin 750 MG Tab PO SCH (22:40)
[2023-03-17] MEDS: Enoxaparin 40 MG/0.4 ML Syringe SUBCUT SCH (22:41)
[2023-03-17] MEDS: Insulin Glargine,Hum.Rec.Anlog 100 UNIT/ML 3 ML Pen SUBCUT SCH ×2 (22:42→23:01)
[2023-03-17] MEDS: Pantoprazole 40 MG in Sodium Chloride 0.9% 10 ML IVPUSH SCH (22:56)
[2023-03-18] MEDS: Albuterol 0.083% 2.5 MG/3 ML Neb Soln NEB SCH ×6 (02:34→23:30)
[2023-03-18 05:52] LABS: BASOPHILS ABSOLUTE AUTO 0.01 K/uL (0.00-0.20); BASOPHILS PERCENT AUTO 0.1 % (0.0-1.0); HEMATOCRIT 36.9 % (37.0-47.0); HEMOGLOBIN 12.3 g/dL (12.0-16.0); IMMATURE GRAN ABSOLUTE AUTO 0.08 K/uL (0.00-0.05); LYMPHOCYTES PERCENT AUTO 6.1 % (24.0-44.0); MEAN CORPUSCULAR HGB CONC 33.3 g/dL (32.0-36.0); MEAN CORPUSCULAR VOLUME 96.1 fL (83.0-99.0); MEAN PLATELET VOLUME 8.3 fL (9.4-12.3); MONOCYTES ABSOLUTE AUTO 0.45 K/uL (0.00-0.80); MONOCYTES PERCENT AUTO 5.5 % (0.0-8.0); NEUTROPHILS ABSOLUTE AUTO 7.12 K/uL (1.80-7.70); NEUTROPHILS PERCENT AUTO 87.3 % (41.0-71.0); PLATELET COUNT,PLT 193 K/uL (150-400); RED BLOOD CELL COUNT 3.84 M/uL (4.10-5.30); WHITE BLOOD CELL COUNT,WBC 8.16 K/uL (3.9-11.3)
[2023-03-18] MEDS: Mometasone Furoate Powder 220 MCG/Puff 14 Dose Inhaler INH SCH (05:56)
[2023-03-18 06:13] LABS: CALCIUM 9.2 mg/dL (8.5-10.1); CARBON DIOXIDE,CO2 26.4 mmol/L (21.0-32.0); CREATININE 1.4 mg/dL (0.6-1.0); EST CRCL DRUG DOSING (CG) 31.85 mL/min; POTASSIUM,K 4.1 mmol/L (3.5-5.1)
[2023-03-18] MEDS: Acetaminophen 325 MG Tab PO PRN (06:36)
[2023-03-18] MEDS: Levothyroxine 125 MCG Tab PO SCH (06:36)
[2023-03-18] MEDS ORDERED: Sodium Chloride 0.9% 1,000 ML IV SCH ×2 (07:15→10:30)
[2023-03-18] MEDS: Insulin Aspart 100 Units/ML 3 ML Pen SUBCUT SCH ×3 (07:57→17:37)
[2023-03-18] MEDS: Losartan 50 MG Tab PO SCH (08:11)
[2023-03-18] MEDS ORDERED: Non-Formulary Medication 1 Each (Fluticasone Furoate [Arnuity Ellipta] 100 MCG Blst.W.Dev) IH SCH (09:00)
[2023-03-18] MEDS ORDERED: Non-Formulary Medication 1 Each (Fluticasone/Umeclidin/Vilanter [Trelegy Ellipta 100-62.5- INH SCH ×2 (09:00)
[2023-03-18] MEDS ORDERED: DESVENLAFAXINE SUCCINATE 25 MG PO SCH ×2 (09:00)
[2023-03-18] MEDS ORDERED: Oseltamivir 75 MG Cap PO SCH (09:00)
[2023-03-18] MEDS: Nicotine 7 MG/24 Hr Patch TRDERM SCH (09:20)
[2023-03-18] MEDS ORDERED: Benzonatate 100 MG Cap PO PRN (10:25)
[2023-03-18] MEDS: methylPREDNISolone Sodium Succinate 40 MG/1 ML SDV IVPUSH SCH ×2 (11:39→23:31)
[2023-03-18] MEDS: Enoxaparin 40 MG/0.4 ML Syringe SUBCUT SCH (17:38)
[2023-03-18] MEDS: Levofloxacin 750 MG Tab PO SCH (17:40)
[2023-03-18] MEDS: Pantoprazole 40 MG in Sodium Chloride 0.9% 10 ML IVPUSH SCH (17:41)
[2023-03-18] MEDS: Oseltamivir 30 MG Cap PO SCH (20:34)
[2023-03-18] MEDS ORDERED: Insulin Glargine,Hum.Rec.Anlog 100 UNIT/ML 3 ML Pen SUBCUT SCH (21:00)
[2023-03-19 05:36] LABS: BASOPHILS ABSOLUTE AUTO 0.02 K/uL (0.00-0.20); BASOPHILS PERCENT AUTO 0.2 % (0.0-1.0); HEMATOCRIT 37.5 % (37.0-47.0); HEMOGLOBIN 12.3 g/dL (12.0-16.0); IMMATURE GRAN ABSOLUTE AUTO 0.11 K/uL (0.00-0.05); LYMPHOCYTES ABSOLUTE AUTO 0.66 K/uL (1.00-4.80); LYMPHOCYTES PERCENT AUTO 6.1 % (24.0-44.0); MEAN CORPUSCULAR HGB CONC 32.8 g/dL (32.0-36.0); MEAN CORPUSCULAR VOLUME 97.7 fL (83.0-99.0); MEAN PLATELET VOLUME 8.4 fL (9.4-12.3); MONOCYTES PERCENT AUTO 11.9 % (0.0-8.0); NEUTROPHILS ABSOLUTE AUTO 8.81 K/uL (1.80-7.70); NEUTROPHILS PERCENT AUTO 80.8 % (41.0-71.0); PLATELET COUNT,PLT 196 K/uL (150-400); RED BLOOD CELL COUNT 3.84 M/uL (4.10-5.30)
[2023-03-19 05:59] LABS: CALCIUM 9.1 mg/dL (8.5-10.1); CARBON DIOXIDE,CO2 27.1 mmol/L (21.0-32.0); CREATININE 1.2 mg/dL (0.6-1.0); EST CRCL DRUG DOSING (CG) 37.15 mL/min; POTASSIUM,K 4.9 mmol/L (3.5-5.1)
[2023-03-19] MEDS: Albuterol 0.083% 2.5 MG/3 ML Neb Soln NEB SCH ×2 (06:33→12:12)
[2023-03-19] MEDS: Levothyroxine 125 MCG Tab PO SCH (06:34)
[2023-03-19] MEDS: Mometasone Furoate Powder 220 MCG/Puff 14 Dose Inhaler INH SCH (07:41)
[2023-03-19] MEDS: Insulin Aspart 100 Units/ML 3 ML Pen SUBCUT SCH ×2 (07:55→11:41)
[2023-03-19] MEDS: Oseltamivir 30 MG Cap PO SCH (10:21)
[2023-03-19] MEDS: Nicotine 7 MG/24 Hr Patch TRDERM SCH (10:23)
[2023-03-19] MEDS: methylPREDNISolone Sodium Succinate 40 MG/1 ML SDV IVPUSH SCH (10:27)
[2023-03-19 14:13] VITALS: BP 137/65; PULSE 77
== END 2023-03-19 13:55 | disposition home or self-care (01) | DRG 140 ==
LOC: MW.ED 15:09 → MW.MS 17:01
PROVIDERS: ADMIT Family Medicine; ATTEND Family Medicine
DX: J44.1 Chronic obstructive pulmonary disease with (acute) exacerbation (principal); N17.9 Acute kidney failure, unspecified; I10 Essential (primary) hypertension; F32.9 Major depressive disorder, single episode, unspecified; F41.9 Anxiety disorder, unspecified; E03.9 Hypothyroidism, unspecified; J10.1 Influenza due to other identified influenza virus with other respiratory manifestations; F17.200 Nicotine dependence, unspecified, uncomplicated; R09.02 Hypoxemia; E11.9 Type 2 diabetes mellitus without complications; E66.9 Obesity, unspecified; Z86.16 Personal history of COVID-19; Z88.1 Allergy status to other antibiotic agents; Z88.5 Allergy status to narcotic agent; Z79.4 Long term (current) use of insulin; Z88.2 Allergy status to sulfonamides; Z79.890 Hormone replacement therapy; Z90.710 Acquired absence of both cervix and uterus; Z90.49 Acquired absence of other specified parts of digestive tract; Z11.52 Encounter for screening for COVID-19; Z68.39 Body mass index [BMI] 39.0-39.9, adult
CPT/HCPCS: 0241U; 36415; 71045; 71045-26; 80048; 80053; 82803; 82947; 84484; 85025; 85379; 93005; 94640; A9270-GY; C9113; J1650; J1815-GY; J1885; J2920; J2930; J3490; J7030; J7620-GY

== ENCOUNTER 2023-09-04 13:29 | Emergency (ER) | payer BC ==
[2023-09-04 15:08] VITALS: PULSE 76
[2023-09-04] MEDS: Methocarbamol 750 MG Tab PO ONE (15:54)
[2023-09-04] MEDS: Lidocaine 4% 1 each Patch TOP PRN (15:54)
== END 2023-09-04 16:26 | disposition home or self-care (01) ==
LOC: MW.ED 13:29
DX: M54.2 Cervicalgia (principal); I10 Essential (primary) hypertension; J45.909 Unspecified asthma, uncomplicated; E66.9 Obesity, unspecified; E11.9 Type 2 diabetes mellitus without complications; F17.210 Nicotine dependence, cigarettes, uncomplicated; Z88.2 Allergy status to sulfonamides; Z88.8 Allergy status to other drugs, medicaments and biological substances; Z79.4 Long term (current) use of insulin; Z79.899 Other long term (current) drug therapy; Z90.49 Acquired absence of other specified parts of digestive tract; Z90.710 Acquired absence of both cervix and uterus; Z75.8 Other problems related to medical facilities and other health care
CPT/HCPCS: 99283; A9270

== ENCOUNTER 2023-11-13 04:05 | Emergency (ER) | payer BC, OTHER ==
[2023-11-13 04:30] LABS: APPEARANCE,URINE CLEAR; BILIRUBIN,URINE NEGATIVE (NEGATIVE); COLOR,URINE YELLOW; GLUCOSE,URINE NEGATIVE (NEGATIVE); KETONES,URINE NEGATIVE (NEGATIVE); LEUKOCYTE ESTERASE,URINE NEGATIVE (NEGATIVE); NITRITE,URINE NEGATIVE (NEGATIVE); OCCULT BLOOD,URINE NEGATIVE (NEGATIVE); PROTEIN,URINE NEGATIVE (NEGATIVE); UROBILINOGEN,URINE 0.2 EU/dL (<2.0)
[2023-11-13 04:37] LABS: BACTERIA,URINE FEW (NEGATIVE); MUCUS,URINE LIGHT (NONE-MOD); RBC,URINE 0-1 (0-2/HPF); SQUAMOUS EPITHELIAL CELLS,UR MODERATE; WBC,URINE 0-2 (0-5/HPF)
[2023-11-13] MEDS: Ketorolac 30 MG/ML SDV IVPUSH ONE (05:03)
[2023-11-13 05:10] LABS: BASOPHILS ABSOLUTE AUTO 0.03 K/uL (0.00-0.20); BASOPHILS PERCENT AUTO 0.3 % (0.0-1.0); EOSINOPHILS ABSOLUTE AUTO 0.35 K/uL (0.00-0.45); HEMATOCRIT 40.6 % (37.0-47.0); HEMOGLOBIN 13.3 g/dL (12.0-16.0); IMMATURE GRAN ABSOLUTE AUTO 0.08 K/uL (0.00-0.05); IMMATURE GRAN PERCENT AUTO 0.7 % (0.0-0.4); LYMPHOCYTES ABSOLUTE AUTO 1.73 K/uL (1.00-4.80); LYMPHOCYTES PERCENT AUTO 14.6 % (24.0-44.0); MEAN CORPUSCULAR HEMOGLOBIN 30.8 pg (28.0-32.0); MEAN CORPUSCULAR HGB CONC 32.8 g/dL (32.0-36.0); MONOCYTES ABSOLUTE AUTO 1.41 K/uL (0.00-0.80); MONOCYTES PERCENT AUTO 11.9 % (0.0-8.0); NEUTROPHILS ABSOLUTE AUTO 8.25 K/uL (1.80-7.70); NEUTROPHILS PERCENT AUTO 69.5 % (41.0-71.0); PLATELET COUNT,PLT 302 K/uL (150-400); RED BLOOD CELL COUNT 4.32 M/uL (4.10-5.30); WHITE BLOOD CELL COUNT,WBC 11.85 K/uL (3.9-11.3)
[2023-11-13 05:30] LABS: A/G RATIO 0.7 (0.9-1.6); ALBUMIN 3.4 g/dL (3.4-5.0); BILIRUBIN TOTAL 0.5 mg/dL (0.2-1.0); CALCIUM 9.1 mg/dL (8.5-10.1); CARBON DIOXIDE,CO2 32.6 mmol/L (21.0-32.0); EST CRCL DRUG DOSING (CG) 46.84 mL/min; POTASSIUM,K 4.3 mmol/L (3.5-5.1)
[2023-11-13] MEDS: Polyethylene Glycol 3350 Powder 17 GM Packet PO ONE (06:52)
[2023-11-13 07:01] VITALS: BP 121/69; PULSE 69
== END 2023-11-13 07:00 | disposition home or self-care (01) ==
LOC: MW.ED 04:05
DX: R10.9 Unspecified abdominal pain (principal); I10 Essential (primary) hypertension; J44.9 Chronic obstructive pulmonary disease, unspecified; E11.9 Type 2 diabetes mellitus without complications; E66.9 Obesity, unspecified; Z90.49 Acquired absence of other specified parts of digestive tract; Z90.710 Acquired absence of both cervix and uterus; Z68.34 Body mass index [BMI] 34.0-34.9, adult; Z79.4 Long term (current) use of insulin; Z79.899 Other long term (current) drug therapy; Z88.1 Allergy status to other antibiotic agents; Z88.5 Allergy status to narcotic agent; Z88.2 Allergy status to sulfonamides; Z88.6 Allergy status to analgesic agent; Z88.8 Allergy status to other drugs, medicaments and biological substances; Z75.8 Other problems related to medical facilities and other health care
CPT/HCPCS: 36415; 74176; 80053; 81001; 85025; 96374; 99284; J1885

== ENCOUNTER 2023-12-15 07:16 | Inpatient (IN) | payer BC, OTHER ==
[2023-12-15] MEDS: Sodium Chloride 0.9% 10 ML Syringe FLUSH PRN (07:39)
[2023-12-15] MEDS: methylPREDNISolone Sodium Succinate 125 MG/2 ML SDV IVPUSH ONE (07:39)
[2023-12-15] MEDS: Albuterol/Ipratropium 3.0-0.5 MG/3 ML Neb Soln NEB ONE ×2 (07:41→09:19)
[2023-12-15 07:47] LABS: BASOPHILS ABSOLUTE AUTO 0.04 K/uL (0.00-0.20); BASOPHILS PERCENT AUTO 0.3 % (0.0-1.0); HEMATOCRIT 40.8 % (37.0-47.0); HEMOGLOBIN 13.1 g/dL (12.0-16.0); IMMATURE GRAN ABSOLUTE AUTO 0.15 K/uL (0.00-0.05); IMMATURE GRAN PERCENT AUTO 1.2 % (0.0-0.4); LYMPHOCYTES ABSOLUTE AUTO 0.79 K/uL (1.00-4.80); LYMPHOCYTES PERCENT AUTO 6.2 % (24.0-44.0); MEAN CORPUSCULAR HEMOGLOBIN 31.4 pg (28.0-32.0); MEAN CORPUSCULAR HGB CONC 32.1 g/dL (32.0-36.0); MEAN CORPUSCULAR VOLUME 97.8 fL (83.0-99.0); MEAN PLATELET VOLUME 8.4 fL (9.4-12.3); MONOCYTES ABSOLUTE AUTO 0.86 K/uL (0.00-0.80); MONOCYTES PERCENT AUTO 6.7 % (0.0-8.0); NEUTROPHILS ABSOLUTE AUTO 10.99 K/uL (1.80-7.70); NEUTROPHILS PERCENT AUTO 85.6 % (41.0-71.0); PLATELET COUNT,PLT 259 K/uL (150-400); RED BLOOD CELL COUNT 4.17 M/uL (4.10-5.30); WHITE BLOOD CELL COUNT,WBC 12.83 K/uL (3.9-11.3)
[2023-12-15 07:52] LABS: BASE EXCESS VENOUS 3.7 (-2.0-3.0); BICARBONATE,VENOUS 31 mEQ/mL (22-28); PCO2 VENOUS 59 mmHG (41-51); PH,VENOUS 7.33 (7.31-7.41)
[2023-12-15 07:53] LABS: PO2 VENOUS < 30 mmHG (35-45)
[2023-12-15 08:23] LABS: A/G RATIO 0.8 (0.9-1.6); ALBUMIN 3.3 g/dL (3.4-5.0); BILIRUBIN TOTAL 0.3 mg/dL (0.2-1.0); CARBON DIOXIDE,CO2 31.2 mmol/L (21.0-32.0); CREATININE 1.3 mg/dL (0.6-1.0); EST CRCL DRUG DOSING (CG) 41.23 mL/min; MAGNESIUM 1.9 mg/dL (1.8-2.4); POTASSIUM,K 4.8 mmol/L (3.5-5.1); PROTEIN TOTAL,TP 7.5 g/dL (6.4-8.2)
[2023-12-15 08:27] LABS: CORONAVIRUS COVID-19 NAA NEGATIVE (NEGATIVE); INFLUENZA A NAA NEGATIVE (NEGATIVE); INFLUENZA B NAA NEGATIVE (NEGATIVE); RESPIRATORY SYNCYTIAL VIR NAA NEGATIVE (NEGATIVE)
[2023-12-15] MEDS: Albuterol 0.083% 2.5 MG/3 ML Neb Soln NEB STA (08:59)
[2023-12-15] MEDS: cefTRIAXone 2 GM in Sodium Chloride 0.9% 50 ML IV ONE (09:01)
[2023-12-15] MEDS: Sodium Chloride 0.9% 1,000 ML IV ONE (09:02)
[2023-12-15] MEDS: Doxycycline 100 MG in Sodium Chloride 0.9% 100 ML IV SCH (09:42)
[2023-12-15] MEDS ORDERED: Albuterol 0.083% 2.5 MG/3 ML Neb Soln NEB PRN (10:09)
[2023-12-15] MEDS ORDERED: Sodium Chloride 0.9% 10 ML Syringe FLUSH PRN (10:09)
[2023-12-15] MEDS ORDERED: Ondansetron 4 MG/2 ML SDV IVPUSH PRN (10:09)
[2023-12-15] MEDS ORDERED: Polyethylene Glycol 3350 Powder 17 GM Packet PO PRN (10:09)
[2023-12-15] MEDS ORDERED: Docusate Sodium 100 MG Cap PO PRN (10:09)
[2023-12-15] MEDS ORDERED: Sodium Chloride 0.9% 2.5 ML Syringe FLUSH PRN (10:09)
[2023-12-15] MEDS ORDERED: guaiFENesin/Dextromethorphan 100-10 MG/5 ML Soln 10 ML Cup PO PRN (10:15)
[2023-12-15] MEDS ORDERED: Benzonatate 100 MG Cap PO PRN (10:15)
[2023-12-15] MEDS ORDERED: Glucagon,Human Recombinant 1 MG Vial IM PRN (10:16)
[2023-12-15] MEDS ORDERED: 50% Dextrose in Water 50 ML Syringe IVPUSH PRN (10:16)
[2023-12-15] MEDS: Pantoprazole 40 MG in Sodium Chloride 0.9% 10 ML IVPUSH ONE (11:51)
[2023-12-15] MEDS: Enoxaparin 40 MG/0.4 ML Syringe SUBCUT SCH (11:51)
[2023-12-15] MEDS: Insulin Aspart 100 Units/ML 3 ML Pen SUBCUT SCH (11:52)
[2023-12-15] MEDS ORDERED: Dicyclomine 10 MG Cap PO PRN (14:11)
[2023-12-15] MEDS: Albuterol/Ipratropium 3.0-0.5 MG/3 ML Neb Soln NEB SCH (14:17)
[2023-12-15] MEDS: methylPREDNISolone Sodium Succinate 40 MG/1 ML SDV IVPUSH SCH (15:58)
[2023-12-15] MEDS: Insulin Glargine,Hum.Rec.Anlog 100 UNIT/ML 3 ML Pen SUBCUT SCH (21:56)
[2023-12-15] MEDS: Doxycycline 100 MG Cap PO SCH (21:58)
[2023-12-15] MEDS: LORazepam 0.5 MG Tab PO PRN (23:15)
[2023-12-16 05:03] LABS: BORDETELLA PARAPERT IS1001 Not Detected (Not Detected)
[2023-12-16 06:22] LABS: BASOPHILS ABSOLUTE AUTO 0.04 K/uL (0.00-0.20); BASOPHILS PERCENT AUTO 0.2 % (0.0-1.0); HEMATOCRIT 36.7 % (37.0-47.0); IMMATURE GRAN ABSOLUTE AUTO 0.31 K/uL (0.00-0.05); IMMATURE GRAN PERCENT AUTO 1.7 % (0.0-0.4); LYMPHOCYTES ABSOLUTE AUTO 0.49 K/uL (1.00-4.80); LYMPHOCYTES PERCENT AUTO 2.7 % (24.0-44.0); MEAN CORPUSCULAR HEMOGLOBIN 31.1 pg (28.0-32.0); MEAN CORPUSCULAR HGB CONC 32.7 g/dL (32.0-36.0); MEAN CORPUSCULAR VOLUME 95.1 fL (83.0-99.0); MEAN PLATELET VOLUME 8.6 fL (9.4-12.3); MONOCYTES ABSOLUTE AUTO 0.72 K/uL (0.00-0.80); NEUTROPHILS ABSOLUTE AUTO 16.63 K/uL (1.80-7.70); NEUTROPHILS PERCENT AUTO 91.4 % (41.0-71.0); PLATELET COUNT,PLT 239 K/uL (150-400); RED BLOOD CELL COUNT 3.86 M/uL (4.10-5.30); WHITE BLOOD CELL COUNT,WBC 18.19 K/uL (3.9-11.3)
[2023-12-16] MEDS: Pantoprazole 40 MG Tab.CR PO SCH (06:28)
[2023-12-16 06:44] LABS: CALCIUM 9.2 mg/dL (8.5-10.1); CARBON DIOXIDE,CO2 27.8 mmol/L (21.0-32.0); EST CRCL DRUG DOSING (CG) 46.84 mL/min; MAGNESIUM 1.8 mg/dL (1.8-2.4); POTASSIUM,K 4.4 mmol/L (3.5-5.1)
[2023-12-16] MEDS: Mometasone Furoate Powder 220 MCG/Puff 14 Dose Inhaler INH SCH (09:44)
[2023-12-16] MEDS: FLUTICASONE INH SCH ×2 (09:45→22:47)
[2023-12-16] MEDS: UMECLIDIN INH SCH ×2 (09:45→22:47)
[2023-12-16] MEDS: VILANTER INH SCH ×2 (09:45→22:47)
[2023-12-16] MEDS: Desvenlafaxine Succinate 25 MG TAB.ER PO SCH (10:01)
[2023-12-16] MEDS: cefTRIAXone 1 GM in Sodium Chloride 0.9% 50 ML IV SCH (10:01)
[2023-12-16] MEDS: Acetaminophen 325 MG Tab PO PRN (12:29)
[2023-12-17 05:45] LABS: BASOPHILS ABSOLUTE AUTO 0.04 K/uL (0.00-0.20); BASOPHILS PERCENT AUTO 0.2 % (0.0-1.0); HEMATOCRIT 36.2 % (37.0-47.0); HEMOGLOBIN 12.1 g/dL (12.0-16.0); IMMATURE GRAN ABSOLUTE AUTO 0.36 K/uL (0.00-0.05); IMMATURE GRAN PERCENT AUTO 1.8 % (0.0-0.4); LYMPHOCYTES ABSOLUTE AUTO 0.39 K/uL (1.00-4.80); LYMPHOCYTES PERCENT AUTO 1.9 % (24.0-44.0); MEAN CORPUSCULAR HEMOGLOBIN 31.8 pg (28.0-32.0); MEAN CORPUSCULAR HGB CONC 33.4 g/dL (32.0-36.0); MEAN CORPUSCULAR VOLUME 95.3 fL (83.0-99.0); MONOCYTES ABSOLUTE AUTO 1.09 K/uL (0.00-0.80); MONOCYTES PERCENT AUTO 5.4 % (0.0-8.0); NEUTROPHILS ABSOLUTE AUTO 18.46 K/uL (1.80-7.70); NEUTROPHILS PERCENT AUTO 90.7 % (41.0-71.0); NRBC ABSOLUTE 0.02 K/uL (0.00-0.02); NRBC PERCENT 0.1 /100WBC (0.0-0.2); PLATELET COUNT,PLT 244 K/uL (150-400); WHITE BLOOD CELL COUNT,WBC 20.34 K/uL (3.9-11.3)
[2023-12-17 06:25] LABS: CALCIUM 9.2 mg/dL (8.5-10.1); CARBON DIOXIDE,CO2 29.3 mmol/L (21.0-32.0); CREATININE 1.2 mg/dL (0.6-1.0); EST CRCL DRUG DOSING (CG) 39.03 mL/min; MAGNESIUM 1.7 mg/dL (1.8-2.4); POTASSIUM,K 4.3 mmol/L (3.5-5.1)
[2023-12-17 13:27] VITALS: BP 152/71; PULSE 77
== END 2023-12-17 13:15 | disposition home or self-care (01) | DRG 139 ==
LOC: MW.ED 07:16 → MW.MS 09:33
PROVIDERS: ADMIT Internal Medicine; ATTEND Internal Medicine
DX: J18.9 Pneumonia, unspecified organism (principal); J44.1 Chronic obstructive pulmonary disease with (acute) exacerbation; J44.0 Chronic obstructive pulmonary disease with (acute) lower respiratory infection; E66.9 Obesity, unspecified; R79.89 Other specified abnormal findings of blood chemistry; D72.829 Elevated white blood cell count, unspecified; F17.210 Nicotine dependence, cigarettes, uncomplicated; F32.9 Major depressive disorder, single episode, unspecified; Z88.8 Allergy status to other drugs, medicaments and biological substances; Z88.1 Allergy status to other antibiotic agents; Z88.5 Allergy status to narcotic agent; Z88.2 Allergy status to sulfonamides; Z79.899 Other long term (current) drug therapy; Z79.2 Long term (current) use of antibiotics; Z79.51 Long term (current) use of inhaled steroids; Z79.4 Long term (current) use of insulin; Z68.35 Body mass index [BMI] 35.0-35.9, adult; Z90.49 Acquired absence of other specified parts of digestive tract; Z90.710 Acquired absence of both cervix and uterus
CPT/HCPCS: 0241U; 36415; 71045; 71045-26; 80048; 80053; 82803; 82947; 83605; 83735; 83880; 85025; 87040; 87486; 87581; 87633; 93005; 93010; 94640; 94664; 94667; 94668; 96365; 96375; 99223; 99232; 99239; 99284; 99285-25; A9270-GY; J0696; J1650; J1815-GY; J2470; J2919; J3490; J7030; J7620-GY

== ENCOUNTER 2024-08-12 23:17 | Emergency (ER) | payer MEDICARE, OTHER ==
[2024-08-12] MEDS: predniSONE 20 MG Tab PO ONE (23:32)
[2024-08-12] MEDS: Albuterol/Ipratropium 3.0-0.5 MG/3 ML Neb Soln NEB ONE (23:32)
[2024-08-13 00:14] LABS: CORONAVIRUS COVID-19 NAA NEGATIVE (NEGATIVE); INFLUENZA A NAA NEGATIVE (NEGATIVE); INFLUENZA B NAA NEGATIVE (NEGATIVE)
[2024-08-13] MEDS: Doxycycline Monohydrate 100 MG Cap PO ONE (00:32)
[2024-08-13] MEDS: Albuterol/Ipratropium 3.0-0.5 MG/3 ML Neb Soln NEB ONE (00:50)
[2024-08-13 00:56] VITALS: BP 119/63; PULSE 89
== END 2024-08-13 00:56 | disposition home or self-care (01) ==
LOC: MW.ED 23:17
DX: J44.1 Chronic obstructive pulmonary disease with (acute) exacerbation (principal); I10 Essential (primary) hypertension; E11.9 Type 2 diabetes mellitus without complications; E66.9 Obesity, unspecified; Z90.49 Acquired absence of other specified parts of digestive tract; Z90.710 Acquired absence of both cervix and uterus; Z79.4 Long term (current) use of insulin; Z79.890 Hormone replacement therapy; Z79.899 Other long term (current) drug therapy; Z88.2 Allergy status to sulfonamides; Z88.8 Allergy status to other drugs, medicaments and biological substances; Z88.1 Allergy status to other antibiotic agents; Z88.5 Allergy status to narcotic agent
CPT/HCPCS: 0240U; 71045; 93005; 99285; A9270; 93010; 99283

== ENCOUNTER 2024-09-10 11:07 | Emergency (ER) | payer MEDICARE, OTHER ==
[2024-09-10] MEDS ORDERED: Sodium Chloride 0.9% 2.5 ML Syringe FLUSH PRN (11:15)
[2024-09-10] MEDS: Sodium Chloride 0.9% 10 ML Syringe FLUSH PRN (11:27)
[2024-09-10 11:30] LABS: BASOPHILS ABSOLUTE AUTO 0.02 K/uL (0.00-0.20); BASOPHILS PERCENT AUTO 0.3 % (0.0-1.0); EOSINOPHILS ABSOLUTE AUTO 0.27 K/uL (0.00-0.45); EOSINOPHILS PERCENT AUTO 3.5 % (0.0-6.0); IMMATURE GRAN ABSOLUTE AUTO 0.05 K/uL (0.00-0.05); IMMATURE GRAN PERCENT AUTO 0.6 % (0.0-0.4); LYMPHOCYTES ABSOLUTE AUTO 1.61 K/uL (1.00-4.80); LYMPHOCYTES PERCENT AUTO 20.8 % (24.0-44.0); MEAN PLATELET VOLUME 8.8 fL (9.4-12.3); MONOCYTES ABSOLUTE AUTO 1.00 K/uL (0.00-0.80); MONOCYTES PERCENT AUTO 12.9 % (0.0-8.0); NEUTROPHILS ABSOLUTE AUTO 4.79 K/uL (1.80-7.70); NEUTROPHILS PERCENT AUTO 61.9 % (41.0-71.0); NRBC ABSOLUTE 0.00 K/uL (0.00-0.02); NRBC PERCENT 0.0 /100WBC (0.0-0.2); PLATELET COUNT,PLT 265 K/uL (150-400); RED BLOOD CELL COUNT 4.59 M/uL (4.10-5.30); WHITE BLOOD CELL COUNT,WBC 7.74 K/uL (3.9-11.3)
[2024-09-10 11:49] LABS: BLOOD UREA NITROGEN,BUN 15.0 mg/dL (7.0-18.0); CARBON DIOXIDE,CO2 27.8 mmol/L (21.0-32.0); CHLORIDE,CL 104.0 mmol/L (98-107); CREATININE 0.9 mg/dL (0.6-1.0); EST CRCL DRUG DOSING (CG) 51.41 mL/min; GLUCOSE RANDOM 92.0 mg/dL (74-106); POTASSIUM,K 4.8 mmol/L (3.5-5.1); SODIUM,NA 139.0 mmol/L (136-145)
[2024-09-10 11:50] LABS: ESTIMATED GFR 74.0 mL/min (>60)
[2024-09-10 13:33] VITALS: BP 136/64; PULSE 73
== END 2024-09-10 13:33 | disposition home or self-care (01) ==
LOC: MW.ED 11:07
DX: J44.1 Chronic obstructive pulmonary disease with (acute) exacerbation (principal); B34.9 Viral infection, unspecified; I10 Essential (primary) hypertension; E11.9 Type 2 diabetes mellitus without complications; E66.9 Obesity, unspecified; Z88.1 Allergy status to other antibiotic agents; Z88.8 Allergy status to other drugs, medicaments and biological substances; Z88.2 Allergy status to sulfonamides; Z79.4 Long term (current) use of insulin; Z79.899 Other long term (current) drug therapy; Z79.890 Hormone replacement therapy; Z79.51 Long term (current) use of inhaled steroids; Z90.49 Acquired absence of other specified parts of digestive tract; Z90.710 Acquired absence of both cervix and uterus; Z68.35 Body mass index [BMI] 35.0-35.9, adult
CPT/HCPCS: 36415; 71045; 80048; 85025; 87428; 94640; 99285; A9270; J7612

== ENCOUNTER → 2024-09-25 | Emergency (ER) | payer MEDICARE, OTHER ==
[2024-09-25 11:04] VITALS: BP 141/68; PULSE 77
[2024-09-25 11:04] LABS: GLUCOSE,URINE 100 mg/dL (NEGATIVE); OCCULT BLOOD,URINE NEGATIVE (NEGATIVE)
[2024-09-25 11:08] LABS: APPEARANCE,URINE HAZY
[2024-09-25 11:10] LABS: EPITHELIAL CELLS,URINE FEW (NONE-FEW)
[2024-09-25] MEDS: Ketorolac 30 MG/ML SDV IVPUSH ONE (11:39)
[2024-09-25 11:48] LABS: BASOPHILS ABSOLUTE AUTO 0.02 K/uL (0.00-0.20); BASOPHILS PERCENT AUTO 0.2 % (0.0-1.0); EOSINOPHILS ABSOLUTE AUTO 0.17 K/uL (0.00-0.45); EOSINOPHILS PERCENT AUTO 1.8 % (0.0-6.0); IMMATURE GRAN ABSOLUTE AUTO 0.06 K/uL (0.00-0.05); IMMATURE GRAN PERCENT AUTO 0.6 % (0.0-0.4); LYMPHOCYTES ABSOLUTE AUTO 1.22 K/uL (1.00-4.80); LYMPHOCYTES PERCENT AUTO 13.0 % (24.0-44.0); MEAN PLATELET VOLUME 8.3 fL (9.4-12.3); MONOCYTES ABSOLUTE AUTO 1.25 K/uL (0.00-0.80); MONOCYTES PERCENT AUTO 13.3 % (0.0-8.0); NEUTROPHILS ABSOLUTE AUTO 6.67 K/uL (1.80-7.70); NEUTROPHILS PERCENT AUTO 71.1 % (41.0-71.0); NRBC ABSOLUTE 0.00 K/uL (0.00-0.02); NRBC PERCENT 0.0 /100WBC (0.0-0.2); PLATELET COUNT,PLT 206 K/uL (150-400); RED BLOOD CELL COUNT 4.44 M/uL (4.10-5.30); WHITE BLOOD CELL COUNT,WBC 9.39 K/uL (3.9-11.3)
[2024-09-25 12:09] LABS: A/G RATIO 0.9 (0.9-1.6); ALANINE AMINOTRANSFERASE,ALT 15.0 IU/L (14-63); ASPARTATE AMNIOTRANSFERASE,AST 13.0 IU/L (15-37); BILIRUBIN TOTAL 0.4 mg/dL (0.2-1.0); BLOOD UREA NITROGEN,BUN 24.0 mg/dL (7.0-18.0); CARBON DIOXIDE,CO2 27.4 mmol/L (21.0-32.0); CHLORIDE,CL 104.0 mmol/L (98-107); CREATININE 1.3 mg/dL (0.6-1.0); EST CRCL DRUG DOSING (CG) 33.88 mL/min; GLUCOSE RANDOM 125.0 mg/dL (74-106); POTASSIUM,K 4.0 mmol/L (3.5-5.1); PROTEIN TOTAL,TP 7.2 g/dL (6.4-8.2); SODIUM,NA 139.0 mmol/L (136-145)
[2024-09-25 12:11] LABS: ESTIMATED GFR 48.0 mL/min (>60)
[2024-09-25] MEDS: Iopamidol 755 MG/ML 500 ML Multipack Bottle IVPUSH STA (13:08)
== END | disposition home or self-care (01) ==
LOC: MW.ED 10:18
DX: N39.0 Urinary tract infection, site not specified (principal); K46.9 Unspecified abdominal hernia without obstruction or gangrene; I10 Essential (primary) hypertension; E66.9 Obesity, unspecified; E11.9 Type 2 diabetes mellitus without complications; Z68.36 Body mass index [BMI] 36.0-36.9, adult; Z75.3 Unavailability and inaccessibility of health-care facilities; Z88.1 Allergy status to other antibiotic agents; Z88.2 Allergy status to sulfonamides; Z88.8 Allergy status to other drugs, medicaments and biological substances; Z79.4 Long term (current) use of insulin; Z79.890 Hormone replacement therapy; Z79.899 Other long term (current) drug therapy; Z90.49 Acquired absence of other specified parts of digestive tract; Z90.710 Acquired absence of both cervix and uterus
CPT/HCPCS: 36415; 74177; 80053; 81001; 83690; 83735; 85025; 96361; 96374; 99284; J1885; J7030; Q9967; 99283

== ENCOUNTER 2024-11-11 11:32 | Emergency (ER) | payer MEDICARE, OTHER ==
[2024-11-11 11:36] VITALS: BP 127/67; PULSE 78
[2024-11-11 11:59] LABS: BASOPHILS ABSOLUTE AUTO 0.05 K/uL (0.00-0.20); BASOPHILS PERCENT AUTO 0.6 % (0.0-1.0); EOSINOPHILS ABSOLUTE AUTO 0.59 K/uL (0.00-0.45); EOSINOPHILS PERCENT AUTO 7.1 % (0.0-6.0); IMMATURE GRAN ABSOLUTE AUTO 0.04 K/uL (0.00-0.05); IMMATURE GRAN PERCENT AUTO 0.5 % (0.0-0.4); LYMPHOCYTES ABSOLUTE AUTO 1.33 K/uL (1.00-4.80); LYMPHOCYTES PERCENT AUTO 16.1 % (24.0-44.0); MEAN PLATELET VOLUME 8.2 fL (9.4-12.3); MONOCYTES ABSOLUTE AUTO 1.28 K/uL (0.00-0.80); MONOCYTES PERCENT AUTO 15.5 % (0.0-8.0); NEUTROPHILS ABSOLUTE AUTO 4.98 K/uL (1.80-7.70); NEUTROPHILS PERCENT AUTO 60.2 % (41.0-71.0); NRBC ABSOLUTE 0.00 K/uL (0.00-0.02); NRBC PERCENT 0.0 /100WBC (0.0-0.2); PLATELET COUNT,PLT 236 K/uL (150-400); RED BLOOD CELL COUNT 4.14 M/uL (4.10-5.30); WHITE BLOOD CELL COUNT,WBC 8.27 K/uL (3.9-11.3)
[2024-11-11 12:52] LABS: A/G RATIO 0.8 (0.9-1.6); ALANINE AMINOTRANSFERASE,ALT 21 IU/L (14-63); ASPARTATE AMNIOTRANSFERASE,AST 20 IU/L (15-37); BILIRUBIN TOTAL 0.3 mg/dL (0.2-1.0); BLOOD UREA NITROGEN,BUN 13 mg/dL (7.0-18.0); CARBON DIOXIDE,CO2 26.1 mmol/L (21.0-32.0); CHLORIDE,CL 105 mmol/L (98-107); CREATININE 0.9 mg/dL (0.6-1.0); GLUCOSE RANDOM 103 mg/dL (74-106); POTASSIUM,K 4.1 mmol/L (3.5-5.1); PRO B-TYPE NATRIUR PEPT,BNPPRO 74 pg/mL (0-125); PROTEIN TOTAL,TP 7.1 g/dL (6.4-8.2); SODIUM,NA 141 mmol/L (136-145)
[2024-11-11 13:02] LABS: ESTIMATED GFR 74 mL/min (>60)
[2024-11-11] MEDS: Iopamidol 755 MG/ML 500 ML Multipack Bottle IVPUSH STA (14:01)
[2024-11-11] MEDS: Aluminum Hydroxide/Magnesium Hydroxide/Simethicone Susp 30 ML Cup PO ONE (16:07)
== END 2024-11-11 16:57 | disposition home or self-care (01) ==
LOC: MW.ED 11:32
DX: R07.9 Chest pain, unspecified (principal); I10 Essential (primary) hypertension; J44.9 Chronic obstructive pulmonary disease, unspecified; E11.9 Type 2 diabetes mellitus without complications; Z90.710 Acquired absence of both cervix and uterus; Z79.4 Long term (current) use of insulin; Z79.899 Other long term (current) drug therapy; Z88.8 Allergy status to other drugs, medicaments and biological substances; Z88.2 Allergy status to sulfonamides; Z88.1 Allergy status to other antibiotic agents; Z88.5 Allergy status to narcotic agent
CPT/HCPCS: 36415; 71275; 74177; 80053; 83880; 84484; 85025; 85379; 96374; 99285; A9270; J2270; Q9967; 93010; 99284

== ENCOUNTER 2024-11-17 10:50 | Emergency (ER) | payer MEDICARE, OTHER ==
[2024-11-17] MEDS ORDERED: Sodium Chloride 0.9% 2.5 ML Syringe FLUSH PRN (10:53)
[2024-11-17] MEDS ORDERED: Sodium Chloride 0.9% 10 ML Syringe FLUSH PRN (10:53)
[2024-11-17 11:05] VITALS: BP 114/63
[2024-11-17 11:16] LABS: BASOPHILS ABSOLUTE AUTO 0.09 K/uL (0.00-0.20); BASOPHILS PERCENT AUTO 0.8 % (0.0-1.0); EOSINOPHILS ABSOLUTE AUTO 0.69 K/uL (0.00-0.45); EOSINOPHILS PERCENT AUTO 6.3 % (0.0-6.0); IMMATURE GRAN ABSOLUTE AUTO 0.05 K/uL (0.00-0.05); IMMATURE GRAN PERCENT AUTO 0.5 % (0.0-0.4); LYMPHOCYTES ABSOLUTE AUTO 2.47 K/uL (1.00-4.80); LYMPHOCYTES PERCENT AUTO 22.6 % (24.0-44.0); MEAN PLATELET VOLUME 8.1 fL (9.4-12.3); MONOCYTES ABSOLUTE AUTO 1.46 K/uL (0.00-0.80); MONOCYTES PERCENT AUTO 13.4 % (0.0-8.0); NEUTROPHILS ABSOLUTE AUTO 6.16 K/uL (1.80-7.70); NEUTROPHILS PERCENT AUTO 56.4 % (41.0-71.0); NRBC ABSOLUTE 0.00 K/uL (0.00-0.02); NRBC PERCENT 0.0 /100WBC (0.0-0.2); PLATELET COUNT,PLT 248 K/uL (150-400); RED BLOOD CELL COUNT 4.39 M/uL (4.10-5.30); WHITE BLOOD CELL COUNT,WBC 10.92 K/uL (3.9-11.3)
[2024-11-17 11:29] LABS: INR 1.0 (0.86-1.11)
[2024-11-17 11:54] LABS: A/G RATIO 0.8 (0.9-1.6); ALANINE AMINOTRANSFERASE,ALT 19.0 IU/L (14-63); ASPARTATE AMNIOTRANSFERASE,AST 19.0 IU/L (15-37); BILIRUBIN TOTAL 0.3 mg/dL (0.2-1.0); BLOOD UREA NITROGEN,BUN 14.0 mg/dL (7.0-18.0); CARBON DIOXIDE,CO2 29.9 mmol/L (21.0-32.0); CHLORIDE,CL 101.0 mmol/L (98-107); CREATININE 1.2 mg/dL (0.6-1.0); EST CRCL DRUG DOSING (CG) 36.7 mL/min; GLUCOSE RANDOM 119.0 mg/dL (74-106); POTASSIUM,K 3.8 mmol/L (3.5-5.1); PRO B-TYPE NATRIUR PEPT,BNPPRO 47.0 pg/mL (0-125); PROTEIN TOTAL,TP 7.6 g/dL (6.4-8.2); SODIUM,NA 138.0 mmol/L (136-145)
[2024-11-17 11:55] VITALS: PULSE 85
[2024-11-17 12:00] LABS: ESTIMATED GFR 52.0 mL/min (>60)
[2024-11-17 13:04] LABS: BICARBONATE,VENOUS 27.0 mEq/L (22-29); PCO2 VENOUS 42.0 mmHG (41-51); PH,VENOUS 7.42 (7.32-7.43); PO2 VENOUS 41.0 mmHG (35-45)
[2024-11-17 13:05] LABS: BASE EXCESS VENOUS 2.4 (-2.0-3.0)
[2024-11-17] MEDS: Iopamidol 755 MG/ML 500 ML Multipack Bottle IVPUSH STA (13:08)
== END 2024-11-17 14:25 | disposition home or self-care (01) ==
LOC: MW.ED 10:50
DX: J44.1 Chronic obstructive pulmonary disease with (acute) exacerbation (principal); R09.1 Pleurisy; R91.1 Solitary pulmonary nodule; R07.81 Pleurodynia; Z75.3 Unavailability and inaccessibility of health-care facilities; I10 Essential (primary) hypertension; E11.9 Type 2 diabetes mellitus without complications; E66.9 Obesity, unspecified; Z79.899 Other long term (current) drug therapy; Z88.1 Allergy status to other antibiotic agents; Z88.2 Allergy status to sulfonamides; Z88.5 Allergy status to narcotic agent; Z88.8 Allergy status to other drugs, medicaments and biological substances; Z68.35 Body mass index [BMI] 35.0-35.9, adult
CPT/HCPCS: 36415; 71045; 71260; 80053; 82803; 83605; 83690; 83735; 83880; 84484; 85025; 85379; 85610; 87040; 93005; 96360; 99285; A9270; J7030; Q9967

== ENCOUNTER 2024-12-07 08:38 | Emergency (ER) | payer MEDICARE, OTHER ==
[2024-12-07] MEDS ORDERED: Sodium Chloride 0.9% 10 ML Syringe FLUSH PRN (09:07)
[2024-12-07] MEDS ORDERED: Sodium Chloride 0.9% 2.5 ML Syringe FLUSH PRN (09:07)
[2024-12-07] MEDS: Dexamethasone Sod Phos Preservative Free 10 MG/ML Vial IVPUSH ONE (09:49)
[2024-12-07 09:51] LABS: BASOPHILS ABSOLUTE AUTO 0.06 K/uL (0.00-0.20); BASOPHILS PERCENT AUTO 0.5 % (0.0-1.0); EOSINOPHILS ABSOLUTE AUTO 0.30 K/uL (0.00-0.45); EOSINOPHILS PERCENT AUTO 2.4 % (0.0-6.0); IMMATURE GRAN ABSOLUTE AUTO 0.07 K/uL (0.00-0.05); IMMATURE GRAN PERCENT AUTO 0.6 % (0.0-0.4); LYMPHOCYTES ABSOLUTE AUTO 1.80 K/uL (1.00-4.80); LYMPHOCYTES PERCENT AUTO 14.2 % (24.0-44.0); MEAN PLATELET VOLUME 8.2 fL (9.4-12.3); MONOCYTES ABSOLUTE AUTO 1.19 K/uL (0.00-0.80); MONOCYTES PERCENT AUTO 9.4 % (0.0-8.0); NEUTROPHILS ABSOLUTE AUTO 9.25 K/uL (1.80-7.70); NEUTROPHILS PERCENT AUTO 72.9 % (41.0-71.0); NRBC ABSOLUTE 0.00 K/uL (0.00-0.02); NRBC PERCENT 0.0 /100WBC (0.0-0.2); PLATELET COUNT,PLT 256 K/uL (150-400); RED BLOOD CELL COUNT 4.27 M/uL (4.10-5.30); WHITE BLOOD CELL COUNT,WBC 12.67 K/uL (3.9-11.3)
[2024-12-07 10:36] LABS: A/G RATIO 0.9 (0.9-1.6); ALANINE AMINOTRANSFERASE,ALT 14.0 IU/L (14-63); ASPARTATE AMNIOTRANSFERASE,AST 17.0 IU/L (15-37); BILIRUBIN TOTAL 0.6 mg/dL (0.2-1.0); BLOOD UREA NITROGEN,BUN 23.0 mg/dL (7.0-18.0); CARBON DIOXIDE,CO2 26.9 mmol/L (21.0-32.0); CHLORIDE,CL 103.0 mmol/L (98-107); CREATININE 1.3 mg/dL (0.6-1.0); EST CRCL DRUG DOSING (CG) 33.88 mL/min; GLUCOSE RANDOM 107.0 mg/dL (74-106); POTASSIUM,K 3.6 mmol/L (3.5-5.1); PROTEIN TOTAL,TP 7.7 g/dL (6.4-8.2); SODIUM,NA 141.0 mmol/L (136-145)
[2024-12-07 10:37] LABS: ESTIMATED GFR 48.0 mL/min (>60)
[2024-12-07 19:27] VITALS: BP 112/59; PULSE 74
== END 2024-12-07 11:24 | disposition home or self-care (01) ==
LOC: MW.ED 08:38
DX: J44.1 Chronic obstructive pulmonary disease with (acute) exacerbation (principal); D72.829 Elevated white blood cell count, unspecified; I10 Essential (primary) hypertension; E11.9 Type 2 diabetes mellitus without complications; E66.9 Obesity, unspecified; Z68.37 Body mass index [BMI] 37.0-37.9, adult; Z90.710 Acquired absence of both cervix and uterus; Z90.49 Acquired absence of other specified parts of digestive tract; Z88.1 Allergy status to other antibiotic agents; Z88.5 Allergy status to narcotic agent; Z88.2 Allergy status to sulfonamides; Z88.8 Allergy status to other drugs, medicaments and biological substances; Z79.52 Long term (current) use of systemic steroids; Z79.899 Other long term (current) drug therapy; Z79.4 Long term (current) use of insulin
CPT/HCPCS: 36415; 71045; 80053; 84484; 85025; 93005; 94640; 96374; 99285; A9270; J1100; 93010; 99283

== ENCOUNTER 2024-12-10 20:50 | Emergency (ER) | payer MEDICARE, OTHER ==
[2024-12-10] MEDS ORDERED: Sodium Chloride 0.9% 10 ML Syringe FLUSH PRN (21:03)
[2024-12-10] MEDS ORDERED: Sodium Chloride 0.9% 2.5 ML Syringe FLUSH PRN (21:03)
[2024-12-10 21:22] LABS: BASOPHILS ABSOLUTE AUTO 0.03 K/uL (0.00-0.20); BASOPHILS PERCENT AUTO 0.3 % (0.0-1.0); EOSINOPHILS ABSOLUTE AUTO 0.19 K/uL (0.00-0.45); EOSINOPHILS PERCENT AUTO 1.8 % (0.0-6.0); IMMATURE GRAN ABSOLUTE AUTO 0.07 K/uL (0.00-0.05); IMMATURE GRAN PERCENT AUTO 0.7 % (0.0-0.4); LYMPHOCYTES ABSOLUTE AUTO 1.96 K/uL (1.00-4.80); LYMPHOCYTES PERCENT AUTO 18.4 % (24.0-44.0); MEAN PLATELET VOLUME 8.1 fL (9.4-12.3); MONOCYTES ABSOLUTE AUTO 1.25 K/uL (0.00-0.80); MONOCYTES PERCENT AUTO 11.8 % (0.0-8.0); NEUTROPHILS ABSOLUTE AUTO 7.13 K/uL (1.80-7.70); NEUTROPHILS PERCENT AUTO 67.0 % (41.0-71.0); NRBC ABSOLUTE 0.00 K/uL (0.00-0.02); NRBC PERCENT 0.0 /100WBC (0.0-0.2); PLATELET COUNT,PLT 271 K/uL (150-400); RED BLOOD CELL COUNT 4.30 M/uL (4.10-5.30); WHITE BLOOD CELL COUNT,WBC 10.63 K/uL (3.9-11.3)
[2024-12-10 21:34] LABS: BASE EXCESS VENOUS 1.0 (-2.0-3.0); BICARBONATE,VENOUS 26.0 mEq/L (22-29); PCO2 VENOUS 41.0 mmHG (41-51); PH,VENOUS 7.42 (7.32-7.43); PO2 VENOUS 70.0 mmHG (35-45)
[2024-12-10 21:44] LABS: INR 0.99 (0.86-1.11)
[2024-12-10 22:08] LABS: A/G RATIO 0.9 (0.9-1.6); ALANINE AMINOTRANSFERASE,ALT 24.0 IU/L (14-63); ASPARTATE AMNIOTRANSFERASE,AST 18.0 IU/L (15-37); BILIRUBIN TOTAL 0.4 mg/dL (0.2-1.0); BLOOD UREA NITROGEN,BUN 17.0 mg/dL (7.0-18.0); CARBON DIOXIDE,CO2 25.9 mmol/L (21.0-32.0); CHLORIDE,CL 106.0 mmol/L (98-107); CREATININE 0.8 mg/dL (0.6-1.0); EST CRCL DRUG DOSING (CG) 55.06 mL/min; GLUCOSE RANDOM 107.0 mg/dL (74-106); POTASSIUM,K 3.4 mmol/L (3.5-5.1); PRO B-TYPE NATRIUR PEPT,BNPPRO 203.0 pg/mL (0-125); PROTEIN TOTAL,TP 7.3 g/dL (6.4-8.2); SODIUM,NA 144.0 mmol/L (136-145)
[2024-12-10 22:09] LABS: ESTIMATED GFR 85.0 mL/min (>60)
[2024-12-10 22:28] VITALS: BP 135/76; PULSE 71
== END 2024-12-10 22:30 | disposition home or self-care (01) ==
LOC: MW.ED 20:50
DX: R06.02 Shortness of breath (principal); F41.9 Anxiety disorder, unspecified; R79.89 Other specified abnormal findings of blood chemistry; I10 Essential (primary) hypertension; J44.89 Other specified chronic obstructive pulmonary disease; E11.9 Type 2 diabetes mellitus without complications; E66.9 Obesity, unspecified; Z68.35 Body mass index [BMI] 35.0-35.9, adult; Z90.49 Acquired absence of other specified parts of digestive tract; Z90.710 Acquired absence of both cervix and uterus; Z88.5 Allergy status to narcotic agent; Z88.2 Allergy status to sulfonamides; Z88.8 Allergy status to other drugs, medicaments and biological substances; Z79.4 Long term (current) use of insulin; Z79.890 Hormone replacement therapy; Z79.899 Other long term (current) drug therapy; Z99.81 Dependence on supplemental oxygen
CPT/HCPCS: 36415; 71045; 80053; 82803; 83735; 83880; 84484; 85025; 85610; 93005; 99285; A9270; 93010; 99283